=== PATIENT | male | born 1935 | race Caucasian/White ===

== ENCOUNTER 2016-12-14 | Outpatient (CLI) | payer MEDICARE, OTHER | END 2016-12-14 19:52 | disposition critical access hospital (66) | CPT/HCPCS: A0425; A0427 ==

== ENCOUNTER 2016-12-14 20:13 | Inpatient (IN) | payer MEDICARE, OTHER ==
[2016-12-14] MEDS ORDERED: SODIUM CHLORIDE 0.9% 1,000 ML IV ONE ×2 (20:20→21:43)
[2016-12-14] MEDS ORDERED: LORazepam 2 MG/ML SYRINGE IVP STA ×2 (20:21→22:24)
[2016-12-14] MEDS ORDERED: LORazepam 2 MG/ML SYRINGE ONE ×2 (20:46→22:25)
[2016-12-14] MEDS ORDERED: INSULIN REGULAR HUMAN 100 UNIT/1 ML 10 ML MDV ONE (20:51)
[2016-12-14] MEDS ORDERED: INSULIN REGULAR HUMAN 100 UNIT/1 ML 10 ML MDV IVP STA (20:55)
[2016-12-14] MEDS ORDERED: INSULIN REGULAR HUMAN 100 UNIT in SODIUM CHLORIDE 0.9% 100ML 99 ML IV STA (21:44)
[2016-12-14] MEDS ORDERED: ONDANSETRON ODT 4 MG TABLET TL PRN (22:09)
[2016-12-14] MEDS ORDERED: HYDROmorphone 1 MG/ML SYRINGE IVP PRN (22:09)
[2016-12-14] MEDS ORDERED: ONDANSETRON 4 MG/2 ML VIAL IVP PRN (22:09)
[2016-12-14] MEDS ORDERED: ACETAMINOPHEN 325 MG TABLET PO PRN (22:09)
[2016-12-14] MEDS ORDERED: SODIUM CHLORIDE FLUSH 0.9% 10 ML SYRINGE IVP PRN (22:09)
[2016-12-14] MEDS ORDERED: SODIUM CHLORIDE 0.9% 1,000 ML IV SCH (23:00)
[2016-12-15] MEDS: INSULIN REGULAR HUMAN 100 UNIT in SODIUM CHLORIDE 0.9% 100ML 99 ML IV SCH ×2 (00:40→07:00)
[2016-12-15] MEDS ORDERED: ZINC OXIDE 20% OINT 28.35 GM TUBE TOP PRN (04:49)
[2016-12-15] MEDS ORDERED: GLUCAGON 1 MG/ML VIAL SUBQ PRN (08:20)
[2016-12-15] MEDS ORDERED: DEXTROSE GEL 37.5 GM TUBE PO PRN (08:20)
[2016-12-15] MEDS ORDERED: DEXTROSE 50% ABBOJECT 25 GM/50 ML SYRINGE IVP PRN (08:20)
[2016-12-15] MEDS ORDERED: DEXTROSE 5% 1,000 ML IV PRN (08:20)
[2016-12-15] MEDS: POTASSIUM CHLOR 10 MEQ/100 ML 100 ML IV SCH ×4 (08:55→12:58)
[2016-12-15] MEDS: PANTOPRAZOLE 40 MG VIAL IVP SCH (08:55)
[2016-12-15] MEDS: SODIUM CHLORIDE 0.9% 1,000 ML IV SCH ×2 (09:27)
[2016-12-15] MEDS: SODIUM CHLORIDE FLUSH 0.9% 10 ML SYRINGE IVP SCH ×3 (10:53→20:55)
[2016-12-15] MEDS ORDERED: DEXTROSE 5%-0.45% NACL 1,000 ML IV SCH (11:00)
[2016-12-15] MEDS: INSULIN ASPART 300 UNIT/3 ML PEN SUBQ SCH ×3 (12:01→20:55)
[2016-12-15] MEDS ORDERED: WARFARIN 5 MG TABLET PO SCH (15:00)
[2016-12-15] MEDS: LISINOPRIL 20 MG TABLET PO SCH (15:10)
[2016-12-15] MEDS: DIGOXIN 125 MCG TABLET PO SCH (15:10)
[2016-12-15] MEDS: METOPROLOL SUCCINATE 25 MG TABLET PO SCH (15:10)
[2016-12-15] MEDS: DOXAZOSIN 4 MG TABLET PO SCH (15:10)
[2016-12-15] MEDS: INSULIN GLARGINE 300 UNIT/3 ML PEN SUBQ SCH (15:18)
[2016-12-15] MEDS ORDERED: ATORVASTATIN 10 MG TABLET PO SCH (21:00)
[2016-12-16] MEDS: PANTOPRAZOLE 40 MG VIAL IVP SCH (06:35)
[2016-12-16] MEDS: SODIUM CHLORIDE FLUSH 0.9% 10 ML SYRINGE IVP SCH ×2 (06:35→14:36)
[2016-12-16] MEDS: INSULIN GLARGINE 300 UNIT/3 ML PEN SUBQ SCH (08:45)
[2016-12-16] MEDS: INSULIN ASPART 300 UNIT/3 ML PEN SUBQ SCH ×2 (08:46→11:40)
[2016-12-16] MEDS: DIGOXIN 125 MCG TABLET PO SCH (08:47)
[2016-12-16] MEDS: DOXAZOSIN 4 MG TABLET PO SCH (08:47)
[2016-12-16] MEDS: METOPROLOL SUCCINATE 25 MG TABLET PO SCH (08:47)
[2016-12-16] MEDS ORDERED: INSULIN GLARGINE 300 UNIT/3 ML PEN SUBQ SCH (09:10)
[2016-12-16] MEDS ORDERED: INSULIN ASPART 300 UNIT/3 ML PEN SUBQ SCH (12:00)
[2016-12-16] MEDS ORDERED: INSULIN ASPART 300 UNIT/3 ML PEN SUBQ ONE (12:30)
[2016-12-16] MEDS ORDERED: WARFARIN 5 MG TABLET PO SCH (14:00)
== END 2016-12-16 16:20 | disposition home or self-care (01) | DRG 637 ==
DX: E11.01 Type 2 diabetes mellitus with hyperosmolarity with coma (principal); N28.9 Disorder of kidney and ureter, unspecified; I48.91 Unspecified atrial fibrillation; J98.4 Other disorders of lung; G93.41 Metabolic encephalopathy; J96.10 Chronic respiratory failure, unspecified whether with hypoxia or hypercapnia; Z79.899 Other long term (current) drug therapy; N17.9 Acute kidney failure, unspecified; I25.10 Atherosclerotic heart disease of native coronary artery without angina pectoris; I48.2 Chronic atrial fibrillation; I70.1 Atherosclerosis of renal artery; I73.9 Peripheral vascular disease, unspecified; I65.29 Occlusion and stenosis of unspecified carotid artery; J44.9 Chronic obstructive pulmonary disease, unspecified; G47.33 Obstructive sleep apnea (adult) (pediatric); I10 Essential (primary) hypertension; E78.5 Hyperlipidemia, unspecified; N40.0 Benign prostatic hyperplasia without lower urinary tract symptoms; Z66 Do not resuscitate; I25.2 Old myocardial infarction; Z72.0 Tobacco use; Z95.5 Presence of coronary angioplasty implant and graft; Z79.01 Long term (current) use of anticoagulants; Z95.828 Presence of other vascular implants and grafts; Z99.81 Dependence on supplemental oxygen; Z91.81 History of falling; Z71.6 Tobacco abuse counseling

== ENCOUNTER 2020-01-21 12:35 | Outpatient (CLI) | payer MEDICARE, OTHER | END 2020-01-21 12:36 | disposition home or self-care (01) | LOC: RT 12:35 | PROVIDERS: ATTEND Physician Assistant Medical | DX: J44.9 Chronic obstructive pulmonary disease, unspecified (principal); F17.290 Nicotine dependence, other tobacco product, uncomplicated ==

== ENCOUNTER 2022-03-28 17:38 | Outpatient (CLI) | payer MEDICARE, OTHER | END 2022-03-28 17:39 | disposition critical access hospital (66) | LOC: EMS 17:38 | DX: R53.1 Weakness (principal); R53.83 Other fatigue; R06.09 Other forms of dyspnea; R63.0 Anorexia; R05.9 Cough, unspecified; F17.210 Nicotine dependence, cigarettes, uncomplicated | CPT/HCPCS: A0425; A0427 ==

== ENCOUNTER 2022-03-28 18:06 | Inpatient (IN) | payer MEDICARE, OTHER ==
[2022-03-28] MEDS ORDERED: methylPREDNISolone SUCCINATE 125 MG/2 ML VIAL IVP STA (18:17)
[2022-03-28] MEDS ORDERED: IPRATROPIUM/ALBUTEROL 3 ML NEB INH STA (18:17)
[2022-03-28] MEDS ORDERED: diltiaZEM INJ 5 MG/ML VIAL IVP STA ×2 (18:18→19:14)
--- NOTE | 2022-03-28 18:20 | ED Physician Documentation ---
History of Present Illness - Stated complaint Stated Complaint: SOA - History obtained from History obtained from: Patient, EMS - Additonal information Additional information: 86-year-old gentleman presents by ambulance for the evaluation of shortness of breath. He is a vague historian, says he is short of breath, just been coming and going over maybe days. Says he has a mild cough, no chest pain. Paramedics state he has been noncompliant with his medications. Patient certainly does not know his medications but he says he takes about 4 in the morning and about 5 in the evening. He usually uses oxygen at night for his COPD and when I mentioned Trelegy he unconvincingly stated that he had been using that as well. On exam I note that his right leg is swollen, he had not noted that. He says he is smoking less lately than he used to, currently only about 1-1/2 packs a day. He has a history of A. fib, coronary disease, peripheral vascular disease, COPD, hyperlipidemia, hypertension, BPH, gout, and remote cholecystectomy. Review of Systems Ten Systems: 10 systems reviewed and negative Constitutional: denies: Fever, Chills Nose: denies: Rhinorrhea / runny nose, Congestion Cardiac: denies: Chest pain / pressure, Palpitations Respiratory: reports: Dyspnea, Cough PD PAST MEDICAL HISTORY - Past Medical History Cardiovascular: Congestive heart failure, Hypertension, Coronary artery disease, Peripheral Vascular Disease, [place], Atrial fibrillation Respiratory: COPD, Sleep apnea, CPAP use Endocrine/Autoimmune: Type 2 diabetes GI: GERD, Ulcers, Hemorrhoids : Incontinence HEENT: Chronic hearing loss Psych: None Musculoskeletal: Other Derm: None - Past Surgical History Past Surgical History: Yes General: Cholecystectomy, Other Cardiovascular: Coronary stent - Present Medications Home Medications: Ambulatory Orders Medication Instructions Recorded Confirmed Colchicine [Colcrys] 0.6 mg PO DAILY 12/14/16 12/15/16 Digoxin [Digox] 125 mcg PO DAILY 12/14/16 12/15/16 Doxazosin [Cardura] 4 mg PO DAILY 12/14/16 12/15/16 Esomeprazole Magnesium [Nexium] 20 mg PO DAILY 12/14/16 12/15/16 Furosemide 40 mg PO SUMOWETHSA 12/14/16 12/15/16 Metoprolol Succinate [Toprol Xl] 25 mg PO DAILY 12/14/16 12/15/16 Potassium Chloride [Klor-Con M20] 20 meq PO DAILY 12/14/16 12/15/16 Simvastatin 40 mg PO DAILY 12/14/16 12/15/16 Warfarin Sodium 5 mg PO MOTUWEFRSA 12/14/16 12/15/16 allopurinoL [Allopurinol] 300 mg PO DAILY 12/14/16 12/15/16 lisinopriL [Zestril] 20 mg PO DAILY 12/14/16 12/15/16 Furosemide [Lasix] 80 mg PO TUTH 12/15/16 12/15/16 Warfarin Sodium 7.5 mg PO SUTH 12/15/16 12/15/16 Blood Sugar Diagnostic [Glucometer 1 each [facility] #120 strip 12/16/16 Strips] Blood-Glucose Meter [Glucometer] 1 each [facility] #1 kit 12/16/16 Insulin Aspart [NovoLOG] 5 unit SUBQ TIDWM #2 pen 12/16/16 Insulin Glargine [Lantus Solostar] 25 unit SUBQ QDBREAKFAST #2 pen 12/16/16 [place], Disposable [Easy Touch 1 each [facility] #120 dis.needle 12/16/16 Hypodermic Needle] - Allergies Allergies/Adverse Reactions: Allergies Allergy/AdvReac Type Severity Reaction Status Date / Time ibuprofen Allergy Hives Verified 03/28/22 18:20 - Social History Does the pt smoke?: Yes Smoking Status: Current every day smoker Does the pt drink ETOH?: No Does the pt have substance abuse?: No - Immunizations Immunizations: TDAP >10years/unknown PD ED PE NORMAL - Vitals Vital signs reviewed: Yes - General General: Alert and oriented X 3, Other (Rapid pursed lip breathing, speaking in full sentences albeit barely. Smells of tobacco.) - HEENT HEENT: PERRL, EOMI - Neck Neck: Supple, no meningeal sign, No bony TTP - Cardiac Cardiac: Other (Rapid and irregular without murmur) - Respiratory Respiratory: Other (Rapid breathing, diminished throughout) - Abdomen Abdomen: Normal bowel sounds, Soft, Non tender - Back Back: No CVA TTP, No spinal TTP - Derm Derm: Normal color, Warm and dry - Extremities Extremities: Other (Significant asymmetric edema of the right leg without tenderness) - Neuro Neuro: Alert and oriented X 3, Normal speech Results - Vitals Vitals: Vital Signs - 24 hr 03/28/22 03/28/22 03/28/22 18:11 18:20 19:12 Temperature 37.3 C Heart Rate 119 H 111 H 107 H Respiratory 28 H 27 H 28 H Rate Blood Pressure 151/105 H 160/104 H 160/104 H O2 Saturation 93 93 92 03/28/22 19:30 Temperature Heart Rate 106 H Respiratory 24 Rate Blood Pressure O2 Saturation Oxygen O2 Source Nasal cannula Oxygen Flow Rate 2 - EKG (time done) 1910 Rate: Rate (enter#) (110) Rhythm: Atrial fibrillation [place]: Normal Intervals: Prolonged QT Ischemia: Non specific changes - Labs Labs: Laboratory Tests 03/28/22 03/28/22 03/28/22 18:26 18:26 18:26 WBC 7.4 RBC 4.56 L Hgb 13.9 L Hct 42.6 MCV 93.4 MCH 30.5 MCHC 32.6 RDW 13.8 Plt Count 238 MPV 10.7 Neut # (Auto) 6.2 Lymph # (Auto) 0.5 L [place] # (Auto) 0.6 Eos # (Auto) 0.0 Baso # (Auto) 0.0 Absolute Nucleated RBC 0.00 Nucleated RBC % 0.0 VBG pH VBG pCO2 VBG pO2 VBG HCO3 VBG Total CO2 VBG O2 Saturation VBG Base Excess Sodium 140 Potassium 3.2 L Chloride 97 L Carbon Dioxide 31 Anion Gap 12.0 BUN 17 Creatinine 1.6 H Estimated GFR (MDRD) 41 L Glucose 117 H Lactic Acid Calcium 8.6 Phosphorus 2.9 Magnesium 1.4 L Total Bilirubin 1.4 H AST 22 ALT 20 Alkaline Phosphatase 178 H Troponin I High Sens 47.7 H* B-Natriuretic Peptide Total Protein 6.9 Albumin 2.7 L Globulin 4.2 Albumin/Globulin Ratio 0.6 L Nasal Adenovirus (PCR) Nasal B. parapertussis DNA (PCR) Nasal Coronavir 229E PCR Nasal Coronavir HKU1 PCR Nasal Coronavir NL63 PCR Nasal Coronavir OC43 PCR Nasal Enterovir/Rhinovir PCR Nasal Influenza B PCR Nasal Influenza A PCR Nasal Parainfluen 1 PCR Nasal Parainfluen 2 PCR Nasal Parainfluen 3 PCR Nasal Parainfluen 4 PCR Nasal RSV (PCR) Nasal B.pertussis DNA PCR Nasal C.pneumoniae (PCR) Elder Human Metapneumo PCR Nasal M.pneumoniae (PCR) Nasal SARS-CoV-2 (PCR) Last Dose Date Last Dose Time Digoxin 03/28/22 03/28/22 03/28/22 18:26 18:26 18:26 WBC RBC Hgb Hct MCV MCH MCHC RDW Plt Count MPV Neut # (Auto) Lymph # (Auto) [place] # (Auto) Eos # (Auto) Baso # (Auto) Absolute Nucleated RBC Nucleated RBC % VBG pH 7.399 VBG pCO2 55.6 H VBG pO2 19.9 L VBG HCO3 33.6 H VBG Total CO2 35.3 H VBG O2 Saturation 34.0 L VBG Base Excess 7.0 H Sodium Potassium Chloride Carbon Dioxide Anion Gap BUN Creatinine Estimated GFR (MDRD) Glucose Lactic Acid 1.7 Calcium Phosphorus Magnesium Total Bilirubin AST ALT Alkaline Phosphatase Troponin I High Sens B-Natriuretic Peptide 1928 H Total Protein Albumin Globulin Albumin/Globulin Ratio Nasal Adenovirus (PCR) Nasal B. parapertussis DNA (PCR) Nasal Coronavir 229E PCR Nasal Coronavir HKU1 PCR Nasal Coronavir NL63 PCR Nasal Coronavir OC43 PCR Nasal Enterovir/Rhinovir PCR Nasal Influenza B PCR Nasal Influenza A PCR Nasal Parainfluen 1 PCR Nasal Parainfluen 2 PCR Nasal Parainfluen 3 PCR Nasal Parainfluen 4 PCR Nasal RSV (PCR) Nasal B.pertussis DNA PCR Nasal C.pneumoniae (PCR) Elder Human Metapneumo PCR Nasal M.pneumoniae (PCR) Nasal SARS-CoV-2 (PCR) Last Dose Date Last Dose Time Digoxin 03/28/22 03/28/22 18:26 18:30 WBC RBC Hgb Hct MCV MCH MCHC RDW Plt Count MPV Neut # (Auto) Lymph # (Auto) [place] # (Auto) Eos # (Auto) Baso # (Auto) Absolute Nucleated RBC Nucleated RBC % VBG pH VBG pCO2 VBG pO2 VBG HCO3 VBG Total CO2 VBG O2 Saturation VBG Base Excess Sodium Potassium Chloride Carbon Dioxide Anion Gap BUN Creatinine Estimated GFR (MDRD) Glucose Lactic Acid Calcium Phosphorus Magnesium Total Bilirubin AST ALT Alkaline Phosphatase Troponin I High Sens B-Natriuretic Peptide Total Protein Albumin Globulin Albumin/Globulin Ratio Nasal Adenovirus (PCR) NOT DETECTED Nasal B. parapertussis DNA (PCR) NOT DETECTED Nasal Coronavir 229E PCR NOT DETECTED Nasal Coronavir HKU1 PCR NOT DETECTED Nasal Coronavir NL63 PCR NOT DETECTED Nasal Coronavir OC43 PCR NOT DETECTED Nasal Enterovir/Rhinovir PCR NOT DETECTED Nasal Influenza B PCR NOT DETECTED Nasal Influenza A PCR NOT DETECTED Nasal Parainfluen 1 PCR NOT DETECTED Nasal Parainfluen 2 PCR NOT DETECTED Nasal Parainfluen 3 PCR NOT DETECTED Nasal Parainfluen 4 PCR NOT DETECTED Nasal RSV (PCR) NOT DETECTED Nasal B.pertussis DNA PCR NOT DETECTED Nasal C.pneumoniae (PCR) NOT DETECTED Elder Human Metapneumo PCR NOT DETECTED Nasal M.pneumoniae (PCR) NOT DETECTED Nasal SARS-CoV-2 (PCR) DETECTED A Last Dose Date UNKNOWN Last Dose Time UNKNOWN Digoxin < 0.2 PD MEDICAL DECISION MAKING - ED course ED course: 86-year-old gentleman presents by ambulance for shortness of breath and is found to have left lower lobe pneumonia, COVID, and A. fib RVR. He was treated here with divided doses of diltiazem and breathing treatments. He also got Rocephin and azithromycin after blood cultures. I spoke with Dr. Lugo for admission at 7:49 PM. We did discuss goals of care and CODE STATUS. He states he is not ready to think about it so presume he is full code for now but he is encouraged to think about it. - Critical Care Time(min): 42 Time Includes: Direct patient care, Review records, Reassess patient, Document care, Coordinate care, Medical consult Data interpretation: Labs, Pulse ox Procedures excluded from critical care time: EKG Departure - Departure Disposition: 66 [facility] DC/Xfer Clinical Impression: CAD (coronary artery disease), Atrial fibrillation with RVR, Tobacco abuse, Left lower lobe pneumonia, COPD exacerbation, COVID-19 Condition: Serious
[2022-03-28] MEDS ORDERED: IOPAMIDOL-300 100 ML VIAL ONE (18:31)
[2022-03-28 18:32] LABS: BASOPHILS % (AUTO) 0.3 %; EOSINOPHILS % (AUTO) 0.3 %; HCT - HEMATOCRIT 42.6 % (42.0-52.0); HGB - HEMOGLOBIN 13.9 g/dL (14.0-18.0); LYMPHOCYTES # (AUTO) 0.5 10^3/uL (1.5-3.5); LYMPHOCYTES % (AUTO) 7.2 %; MEAN CORPUSCULAR HEMOGLOBIN 30.5 pg (27.0-31.0); MEAN CORPUSCULAR HGB CONC 32.6 g/dL (32.0-36.0); MEAN CORPUSCULAR VOLUME 93.4 fL (80.0-94.0); MEAN PLATELET VOLUME 10.7 fL (7.4-11.4); MONOCYTES # (AUTO) 0.6 10^3/uL (0.0-1.0); MONOCYTES % (AUTO) 8.6 %; NEUTROPHILS # (AUTO) 6.2 10^3/uL (1.5-6.6); NEUTROPHILS % (AUTO) 83.2 %; PLT - PLATELET COUNT 238 10^3/uL (130-450); RED BLOOD COUNT 4.56 10^6/uL (4.70-6.10); RED CELL DISTRIBUTION WIDTH 13.8 % (12.0-15.0); WHITE BLOOD COUNT 7.4 x10^3/uL (4.8-10.8)
[2022-03-28 18:40] LABS: VBG HCO3 33.6 mmol/L (23-28); VBG PCO2 55.6 mmHg (41-51); VBG PH 7.399 (7.31-7.41); VBG PO2 19.9 mmHg (25-47); VBG TOTAL CO2 35.3 mmol/L (24-29)
--- NOTE | 2022-03-28 18:41 | XRAY Report ---
PROCEDURE: Chest 1 View X-Ray INDICATIONS: dyspnea TECHNIQUE: One view of the chest was acquired. COMPARISON: Chest x-ray one view, 12/14/2016. FINDINGS: Surgical changes and devices: None. Lungs and pleura: Left basilar infiltrate and consolidation. Small left effusion is present. A densi ty in the right upper lobe is likely caused by costochondral calcification of the first rib. No pneum othorax. Mediastinum: Mediastinal contours appear normal. Heart size is normal. Bones and chest wall: No suspicious bony lesions. Overlying soft tissues appear unremarkable. IMPRESSION: Left lower lobe infiltrate/consolidation with small left pleural effusions suspicious for left lower lobe pneumonia. Reviewed by: Ronaldo Daley MD on 03/28/2022 5:39 PM AKDT Approved by: Ronaldo Daley MD on 03/28/2022 5:39 PM AKDT Station ID: [id number]
[2022-03-28 18:49] LABS: ALBUMIN 2.7 g/dL (3.2-5.5); ALBUMIN/GLOBULIN RATIO 0.6 (1.0-2.2); BILIRUBIN,TOTAL 1.4 mg/dL (0.2-1.0); CALCIUM 8.6 mg/dL (8.5-10.3); CREATININE 1.6 mg/dL (0.6-1.2); MAGNESIUM 1.4 mg/dL (1.7-2.8); PHOSPHORUS 2.9 mg/dL (2.5-4.6); POTASSIUM 3.2 mmol/L (3.5-5.0); TOTAL PROTEIN 6.9 g/dL (6.7-8.2)
[2022-03-28] MEDS ORDERED: cefTRIAXone 1 GM in SODIUM CHLORIDE 0.9% MINIBAG 100 ML IV STA (19:08)
[2022-03-28] MEDS ORDERED: AZITHROMYCIN INJ 500 MG in SODIUM CHLORIDE 0.9% 250 ML IV STA (19:08)
[2022-03-28] MEDS ORDERED: ASPIRIN 325 MG TABLET PO STA (19:09)
[2022-03-28 19:20] LABS: DIGOXIN < 0.2 ng/mL
--- NOTE | 2022-03-28 19:24 | Ultrasound Report ---
PROCEDURE: Duplex Ext Veins Right INDICATIONS: Leg swelling TECHNIQUE: Real-time imaging, as well as color and pulse Doppler interrogation, were performed of the lower extr emity deep veins from the inguinal ligament to the popliteal fossa. COMPARISON: None. FINDINGS: The deep veins are normally compressible, and free of intraluminal thrombus. Color and pu lse Doppler demonstrate normal phasic intraluminal flow. There is normal augmentation response to di stal compression maneuver. IMPRESSION: No sonographic evidence of DVT. Reviewed by: Ramiro Gruber MD on 03/28/2022 7:23 PM PDT Approved by: Ramiro Gruber MD on 03/28/2022 7:23 PM PDT Station ID: [id number]
[2022-03-28] MEDS ORDERED: cefTRIAXone 1 GM VIAL ONE (19:30)
[2022-03-28 19:38] LABS: CORONAVIRUS 229E-RESP PCR NOT DETECTED; CORONAVIRUS HKU1-RESP PCR NOT DETECTED; CORONAVIRUS NL63-RESP PCR NOT DETECTED; CORONAVIRUS OC43-RESP PCR NOT DETECTED
[2022-03-28 19:41] LABS: B. PARAPERTUSSIS- RESP PCR PAN NOT DETECTED; B. PERTUSSIS- RESP PCR PANEL NOT DETECTED; C. PNEUMONIAE- RESP PCR PANEL NOT DETECTED; HUMAN METAPNEUMOVIRUS NOT DETECTED; INFLUENZA A- RESP PCR PANEL NOT DETECTED; INFLUENZA B - RESP PCR PANEL NOT DETECTED; M. PNEUMONIAE- RESP PCR PANEL NOT DETECTED; PARAINFLUENZA VIRUS 1 NOT DETECTED; PARAINFLUENZA VIRUS 2 NOT DETECTED; PARAINFLUENZA VIRUS 3 NOT DETECTED; PARAINFLUENZA VIRUS 4 NOT DETECTED; RHINOVIRUS/ENTEROVIRUS NOT DETECTED; RSV- RESP PCR PANEL NOT DETECTED; SARS-CoV-2 -RESP PCR PANEL DETECTED
[2022-03-28] MEDS ORDERED: ONDANSETRON 4 MG/2 ML VIAL IVP PRN (20:17)
[2022-03-28] MEDS ORDERED: ACETAMINOPHEN 325 MG TABLET PO PRN (20:17)
[2022-03-28] MEDS ORDERED: LEVALBUTEROL 1.25 MG/3 ML NEB INH PRN (20:29)
[2022-03-28] MEDS ORDERED: WARFARIN 5 MG TABLET PO SCH (21:00)
[2022-03-28] MEDS ORDERED: FUROSEMIDE 40 MG TABLET PO SCH (21:00)
[2022-03-28 21:07] LABS: INR 1.2 (0.8-1.2); PT - PROTHROMBIN TIME 13.8 secs (9.9-12.6)
[2022-03-28] MEDS ORDERED: IOPAMIDOL-300 100 ML VIAL IVP ONE (21:41)
[2022-03-28] MEDS: diltiaZEM INJ 125 MG in DEXTROSE 5% 100 ML IV SCH (21:42)
[2022-03-28] MEDS: FAMOTIDINE 20 MG TABLET PO SCH (21:53)
[2022-03-28] MEDS: METOPROLOL SUCCINATE 25 MG TABLET PO SCH (21:53)
[2022-03-28] MEDS: SODIUM CHLORIDE FLUSH 0.9% 10 ML SYRINGE IVP PRN (21:54)
[2022-03-28] MEDS: INSULIN ASPART 300 UNIT/3 ML PEN SUBQ SCH (22:15)
--- NOTE | 2022-03-28 22:20 | HISTORY & PHYSICAL EXAMINATION ---
Chief Complaint - Chief Complaint Chief Complaint: SOB History of Present Illness - Admitted From Admitted From:: ED - History Obtained From History obtained from: Info from EMS to ED provider, chart review, the patient is poor historian - History of Present Illness HPI Comment/Other: This is an 86-year-old white male with a history of 2 pack/day smoking since the age of 16, COPD on home oxygen, sleep apnea on a CPAP machine (possibly a trilogy machine), CAD with MN and coronary stenting in 2011, chronic atrial fib on Coumadin, PVD with renal artery stent in the right done 2008 and bilateral iliac stents, and 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 He was diagnosed with d iabetes mellitus about 5 years ago and was hospitalized here foraltered mental status caused by HONK with glucose greater than 1000 in November 2016. He also has prostate disease, gout, hypertension, hyperlipidemia and status post cholecystectomy. An ambulance was called due to shortness of breath and the patient gave a vague history in the ED that he has been short of breath for days and that "the girls made him come in to the ER". He described a cough with minimal sputum production, denies a fever. In the ED he was found to be in A. fib with RVR with rates in the 140s. He received diltiazem IV twice and heart rate improved to 105-110. His exam showed left basilar rales and chest x-ray showed a left lower lobe pneumonia. He is COVID-positive. His BNP is 1900 with first troponin is 47. Exam also showed right leg swelling and he underwent a Doppler of that leg that showed no DVT. A CTA of the chest has been done but results are still pending. The ED provider reached out to have the patient admitted to the Hospitalist team for managing his A. fib with RVR, community-acquired pneumonia, COPD, posdsibly CHF and a COVID-pneumonia. He has a POLST signed in 2012 that indicates he wants DNR, DNI and selective medical treatment, preferably no ICU and preferably no transfers. History - Past Medical History Cardiovascular: reports: Congestive heart failure, Hypertension, Coronary artery disease, Peripheral Vascular Disease, MN, Atrial fibrillation Respiratory: reports: COPD, Sleep apnea, CPAP use Endocrine/Autoimmune: reports: Type 2 diabetes GI: reports: GERD, Ulcers, Hemorrhoids : reports: Incontinence HEENT: reports: Chronic hearing loss Psych: reports: None Musculoskeletal: reports: Other Derm: reports: None MRSA Hx?: Yes - Past Surgical History General: reports: Cholecystectomy, Other Cardiovascular: reports: Coronary stent - Family & Social History Family History: Father: ( at 50 of stomach cancer, dad at 48 of a car accident, 1 brother unknown status), Sister: Alive and Well (2 sisters have diabetes) Living arrangement: At home Living Situation: With spouse/s.o. - Substance History Dependence: Experiences withdrawal or developed tolerances: Tobacco Tobacco Details: Cigarettes - POLST Patient has POLST: Yes POLST Status: DNR Meds/Allgy - Home Medications Home Medications: Ambulatory Orders Medication Instructions Recorded Confirmed Colchicine [Colcrys] 0.6 mg PO DAILY 12/14/16 12/15/16 Digoxin [Digox] 125 mcg PO DAILY 12/14/16 12/15/16 Doxazosin [Cardura] 4 mg PO DAILY 12/14/16 12/15/16 Esomeprazole Magnesium [Nexium] 20 mg PO DAILY 12/14/16 12/15/16 Furosemide 40 mg PO SUMOWETHSA 12/14/16 12/15/16 Metoprolol Succinate [Toprol Xl] 25 mg PO DAILY 12/14/16 12/15/16 Potassium Chloride [Klor-Con M20] 20 meq PO DAILY 12/14/16 12/15/16 Simvastatin 40 mg PO DAILY 12/14/16 12/15/16 Warfarin Sodium 5 mg PO MOTUWEFRSA 12/14/16 12/15/16 allopurinoL [Allopurinol] 300 mg PO DAILY 12/14/16 12/15/16 lisinopriL [Zestril] 20 mg PO DAILY 12/14/16 12/15/16 Furosemide [Lasix] 80 mg PO TUTH 12/15/16 12/15/16 Warfarin Sodium 7.5 mg PO SUTH 12/15/16 12/15/16 Blood Sugar Diagnostic [Glucometer 1 each [facility] #120 strip 12/16/16 Strips] Blood-Glucose Meter [Glucometer] 1 each [facility] #1 kit 12/16/16 Insulin Aspart [NovoLOG] 5 unit SUBQ TIDWM #2 pen 12/16/16 Insulin Glargine [Lantus Solostar] 25 unit SUBQ QDBREAKFAST #2 pen 12/16/16 [place], Disposable [Easy Touch 1 each [facility] #120 dis.needle 12/16/16 Hypodermic Needle] - Allergies Allergies/Adverse Reactions: Allergies Allergy/AdvReac Type Severity Reaction Status Date / Time ibuprofen Allergy Hives Verified 03/28/22 18:20 Review of Systems - Respiratory Respiratory: reports: Cough, Sputum production, SOB at rest, SOB with exertion - All Other Systems All Other Systems: reports: Reviewed and negative (He is a poor historian and gives very few details about any symptoms.) Exam - Vital Signs Reviewed Vital Signs: Yes Vital Signs: Vital Signs x48h Temp Pulse Resp BP Pulse Ox 03/28/22 21:42 149/91 H 03/28/22 19:30 106 H 24 03/28/22 19:12 107 H 28 H 160/104 H 92 03/28/22 18:20 111 H 27 H 160/104 H 93 03/28/22 18:11 37.3 C 119 H 28 H 151/105 H 93 - Physical Exam General Appearance: positive: Alert (exam done remotely), Mild distress (wearing O2 per n.c.) Eyes Bilateral: positive: Normal inspection ENT: positive: No signs of dehydration Neck: positive: Nml inspection Respiratory: positive: Other (prolonged exp phase) Cardiovascular: positive: Irregularly irregular Abdomen: positive: No distention Skin: positive: Warm, Dry Extremities: positive: Other (R leg swelling) Neurologic/Psychiatric: positive: Other (oriented to self and location, poor memory) Conclusion/Plan - Problem List (1) Atrial fibrillation with RVR Conclusion/Plan: The heart rate is likely elevated due to his infection (pneumonia and COVID infection). Will admit patient to the ICU to start an IV diltiazem drip for rate control. Will cycle troponins to rule out an MN causing this RVR. Check a.m. TSH to rule out hyperthyroidism as a cause for the RVR Will continue with his daily B-clare and his Coumadin. Follow INR daily. (2) CAP (community acquired pneumonia) Conclusion/Plan: Will continue with supplemental oxygen as needed keeping saturations greater than 80%. Will treat empirically with IV ceftriaxone and oral Zithromax (to decrease fluids). Start Florastor. Blood cultures have already been drawn before starting antibiotics, rate the results. Obtain a sputum culture if he makes it. Will start Mucinex for pulmonary toilet (3) COVID-19 Conclusion/Plan: Will order respiratory and droplet isolation. Will start Decadron iv or po daily. Will order Remdesivir to start tomorrow by Pharmacy Provide supplemental oxygen to keep sats greater than 88% (4) COPD exacerbation Conclusion/Plan: Will order IV Decadron, nebulized bronchodilators and steroids, Mucinex for pulmonary toilet and supplemental oxygen (5) Sleep apnea Conclusion/Plan: Will order his home device to be used here (6) Diabetes Conclusion/Plan: Will order a carb controlled diet, fingerstick glucose checks and sliding scale for insulin coverage. Will order a slightly lower dose than his usual long-acting insulin, 20 units instead of 25 units, since he may have decreased intake given the COVID and need for CPAP machine We will check HbA1c with morning labs Qualifiers: Diabetes mellitus type: type 2 (7) COMFORT (acute kidney injury) Conclusion/Plan: His last creatinine here was many years ago and was not 1.1, today it is 1.6. This may be due to his loop diuretic use or generalized volume depletion from his infection. Avoid nephrotoxins. Follow BMP daily. Will continue with his usual Lasix oral treatment however to prevent going into florid CHF (8) PVD (peripheral vascular disease) Conclusion/Plan: We will continue with his statin and Coumadin treatment and promote cigarette smoking cessation (9) Hypertension Conclusion/Plan: IV diltiazem drip will help with blood pressure control and will continue with his usual oral Lasix in order to prevent going into florid CHF. We will continue his Zestril, metoprolol and Cardura as well (10) Hx of coronary artery disease Conclusion/Plan: Will continue his B-clare post-MN and his statin. Will check sequential troponins to R/O MN as the cause of this SOB and the very elevated BNP. Will continue his Lasix doses because of the high BNP. Follow BNP daily. An Echo would be helpful to exclude systolic heart failure, but we currently have no Echo service whatsoever available here. (11) Tobacco abuse Conclusion/Plan: The patient told the ED provider that he has decreased smoking from 2 packs/day down to 1/2/pack/day recently. Will order a nicotine patch while here. (12) Hypokalemia Conclusion/Plan: Likely from his loop diuretic use. Will replace potassium via IV. Follow BMP daily (13) Hypomagnesemia Conclusion/Plan: Likely from his loop diuretic use. Will replace magnesium orally. Follow serum magnesium intermittently (14) BPH (benign prostatic hyperplasia) Conclusion/Plan: Will continue his home Cardura for this - Lab Results Fish Bones: 03/28/22 18:26 03/28/22 18:26 - Diagnostic Imaging Results Diagnostic Imaging Results: positive: Final report reviewed
--- NOTE | 2022-03-28 22:29 | CT Report ---
PROCEDURE: ANGIO CHEST W/WO INDICATIONS: dyspnea, pe protocol CONTRAST: IV CONTRAST: Isovue 300 ml: 100 PO CONTRAST: *NO PO CONTRAST TECHNIQUE: After the administration of intravenous contrast, 2 mm axial images were acquired from the pulmonary apices to the posterior costophrenic angles during the arterial phase. In addition, 1 mm lung kernel and 5 mm soft tissue kernel reconstructions were performed. 3-dimensional coronal oblique maximum int ensity projection (MIP) reformats, 8 mm axial MIP, and 5 mm coronal and sagittal MPR reformats were t hen performed through the thorax. For radiation dose reduction, the following was used: automated exp osure control, adjustment of mA and/or kV according to patient size. COMPARISON: Chest x-ray 03/28/2022 FINDINGS: Image quality: There is motion artifact limiting evaluation. Pulmonary arteries: Pulmonary arteries demonstrate no intraluminal filling defects to suggest centra l pulmonary embolism to the level of the segmental pulmonary arteries. Evaluation of subsegmental bra nches is limited due to suboptimal contrast opacification and motion artifact. There is enlargement o f the pulmonary arteries, with the main pulmonary artery measuring up to 3.2 cm suggestive of pulmona ry arterial hypertension. Lungs and pleura: There is a small left pleural effusion with associated compressive atelectasis. Th ere is also dependent atelectasis in the right lung. In addition, there are confluent ground glass op acities inferiorly within the right lower lobe with associated septal thickening. Small clustered nod ular opacities are also demonstrated inferiorly within the right middle lobe and left lingula. The fi ndings are suggestive of pneumonia or sequelae of aspiration. The superior segment of the right lower lobe, there is a pulmonary nodule measuring up to 0.7 cm on series 6 image 105. Mediastinum: Heart size is enlarged, without pericardial effusion. Thoracic aorta is normal in dick michelet and enhancement. There are a few mildly enlarged mediastinal lymph nodes including a right parat antoine node measuring up to 1.2 cm in short axis. Esophagus is normal in caliber, without hiatal her enrique. Bones and chest wall: No suspicious bony lesions. Ribs and thoracic spine appear intact throughout. No axillary or supraclavicular adenopathy. The visualized thyroid demonstrates no discrete nodules . Abdomen: Visualized upper abdomen demonstrates thickening of the adrenal glands bilaterally. There i s reflux of contrast into the inferior vena cava suggestive of elevated right heart filling pressures . IMPRESSION: 1. No evidence of central pulmonary embolism to the level of the segmental pulmonary arteries. Evalua tion of subsegmental branches is limited by motion artifact and suboptimal contrast opacification. 2. Confluent groundglass opacities with septal thickening in the right lower lobe. Clustered indistin ct nodular opacities also demonstrated in the inferior right middle lobe and left lingula. The findin gs are nonspecific but suggestive of pneumonia. Differential also includes sequelae of aspiration giv en the presence of dependent mucus in the trachea and right mainstem bronchus. 3. Small left pleural effusion with compressive atelectasis. 4. Mildly enlarged mediastinal lymph nodes are nonspecific but likely reactive. 5. Right lower lobe pulmonary nodule measuring up to 0.7 cm. Recommend follow-up CT in 6 months to de monstrate stability. Reviewed by: Bran Hogue MD on 03/28/2022 10:28 PM PDT Approved by: Bran Hogue MD on 03/28/2022 10:28 PM PDT Station ID: [id number]
[2022-03-28] MEDS: LEVALBUTEROL 1.25 MG/3 ML NEB INH SCH (22:40)
[2022-03-28] MEDS ORDERED: MAGNESIUM OXIDE 400 MG TABLET PO SCH (23:00)
[2022-03-28] MEDS: POTASSIUM CHLOR 10 MEQ/100 ML 10 MEQ/100 ML BAG IV SCH (23:24)
[2022-03-29] MEDS: SODIUM CHLORIDE FLUSH 0.9% 10 ML SYRINGE IVP SCH ×3 (00:30→17:20)
[2022-03-29] MEDS: POTASSIUM CHLOR 10 MEQ/100 ML 10 MEQ/100 ML BAG IV SCH ×2 (00:30→01:36)
[2022-03-29] MEDS: SODIUM CHLORIDE FLUSH 0.9% 10 ML SYRINGE IVP PRN ×2 (02:46→10:02)
[2022-03-29 05:18] LABS: CALCIUM, IONIZED 1.09 mmol/L (1.15-1.33); VBG PH 7.345 (7.31-7.41)
[2022-03-29 05:20] LABS: BASOPHILS % (AUTO) 0.1 %; HCT - HEMATOCRIT 40.5 % (42.0-52.0); HGB - HEMOGLOBIN 13.5 g/dL (14.0-18.0); LYMPHOCYTES # (AUTO) 0.3 10^3/uL (1.5-3.5); LYMPHOCYTES % (AUTO) 4.5 %; MEAN CORPUSCULAR HGB CONC 33.3 g/dL (32.0-36.0); MEAN CORPUSCULAR VOLUME 93.1 fL (80.0-94.0); MEAN PLATELET VOLUME 11.5 fL (7.4-11.4); MONOCYTES # (AUTO) 0.2 10^3/uL (0.0-1.0); MONOCYTES % (AUTO) 2.9 %; NEUTROPHILS # (AUTO) 6.7 10^3/uL (1.5-6.6); NEUTROPHILS % (AUTO) 92.1 %; PLT - PLATELET COUNT 240 10^3/uL (130-450); RED BLOOD COUNT 4.35 10^6/uL (4.70-6.10); RED CELL DISTRIBUTION WIDTH 13.6 % (12.0-15.0); WHITE BLOOD COUNT 7.3 x10^3/uL (4.8-10.8)
[2022-03-29 05:21] LABS: INR 1.2 (0.8-1.2); PT - PROTHROMBIN TIME 13.6 secs (9.9-12.6)
[2022-03-29 05:29] LABS: CALCIUM 8.6 mg/dL (8.5-10.3); CREATININE 1.4 mg/dL (0.6-1.2); MAGNESIUM 1.6 mg/dL (1.7-2.8); PHOSPHORUS 3.8 mg/dL (2.5-4.6); POTASSIUM 3.7 mmol/L (3.5-5.0)
[2022-03-29] MEDS: MAGNESIUM OXIDE 400 MG TABLET PO SCH ×2 (06:07→12:28)
[2022-03-29] MEDS: NICOTINE 21 MG PATCH TOP SCH (06:07)
[2022-03-29] MEDS: CALCIUM CARBONATE CHEW 500 MG TABLET PO SCH ×2 (06:07→11:56)
[2022-03-29] MEDS ORDERED: BUDESONIDE 0.5 MG/2 ML NEB INH SCH (07:00)
[2022-03-29] MEDS: LEVALBUTEROL 1.25 MG/3 ML NEB INH SCH (07:15)
[2022-03-29] MEDS ORDERED: POTASSIUM CHLORIDE 20 MEQ TABLET PO ONE (08:00)
[2022-03-29] MEDS ORDERED: INSULIN GLARGINE 300 UNIT/3 ML PEN SUBQ SCH (08:00)
--- NOTE | 2022-03-29 08:41 | PROVIDER PROGRESS NOTE ---
Subjective - Prog Note Date Prog Note Date: 03/29/22 - Subjective Subjective: He feels slightly improved but overall not much better compared to yesterday. Still feels short of breath. No cough. Denies any chest pain. Current Medications - Current Medications Current Medications: Active Medications Acetaminophen (Acetaminophen 325 Mg Tablet) 650 mg PO Q4HR PRN PRN Reason: Pain 1 to 4, or Fever Albuterol (Albuterol 1 Puff) 2 puffs INH RTQID [facility] Allopurinol (Allopurinol 100 Mg Tablet) 300 mg PO DAILY [facility] Last Admin: 03/29/22 09:04 Dose: 300 mg Apixaban (Apixaban 2.5 Mg Tablet) 2.5 mg PO BID [facility] Azithromycin (Azithromycin 250 Mg Tablet) 500 mg PO DAILY [facility] Stop: 03/31/22 00:01 Last Admin: 03/29/22 09:04 Dose: 500 mg Cholecalciferol (Cholecalciferol 25 Mcg Tablet) 50 mcg PO DAILY [facility] Last Admin: 03/29/22 12:24 Dose: 50 mcg Dexamethasone (Dexamethasone 4 Mg/Ml Vial) 6 mg IVP DAILY [facility] Last Admin: 03/29/22 09:16 Dose: 6 mg Digoxin (Digoxin 125 Mcg Tablet) 125 mcg PO DAILY [facility] Last Admin: 03/29/22 09:04 Dose: 125 mcg Doxazosin Mesylate (Doxazosin 4 Mg Tablet) 4 mg PO DAILY [facility] Last Admin: 03/29/22 09:04 Dose: 4 mg Furosemide (Furosemide 40 Mg Tablet) 40 mg PO DAILY [facility] Guaifenesin (Guaifenesin 600 Mg Tablet) 600 mg PO BID [facility] Last Admin: 03/29/22 09:09 Dose: 600 mg Ceftriaxone Sodium 2 gm/ (Sodium Chloride) 100 mls @ 200 mls/hr IV DAILY [facility] Last Infusion: 03/29/22 09:50 Dose: Infused Insulin Aspart (Insulin Aspart 300 Unit/3 Ml Pen) 1 - 5 unit SUBQ 0800,1200,1700,2100 [facility]; Protocol Last Admin: 03/29/22 12:26 Dose: 2 unit Levalbuterol HCl (Levalbuterol 1.25 Mg/3 Ml Neb) 1.25 mg INH Q4H PRN PRN Reason: Shortness of Air/Wheezing Magnesium Oxide (Magnesium Oxide 400 Mg Tablet) 400 mg PO ONCE [facility] Stop: 03/29/22 22:59 Last Admin: 03/28/22 23:24 Dose: 400 mg Metoprolol Succinate (Metoprolol Succinate 25 Mg Tablet) 25 mg PO BID [facility] Last Admin: 03/29/22 09:08 Dose: 25 mg Multivitamins/Minerals (Multivitamin W/Minerals Tablet) 1 tab PO DAILYWM [facility] Last Admin: 03/29/22 12:25 Dose: 1 tab Nicotine (Nicotine 21 Mg Patch) 1 patch TOP 0600 [facility] Last Admin: 03/29/22 06:07 Dose: 1 patch Ondansetron HCl (Ondansetron 4 Mg/2 Ml Vial) 4 mg IVP Q6HR PRN PRN Reason: Nausea / Vomiting Saccharomyces Boulardii (Saccharomyces Boulardii 250 Mg Capsule) 250 mg PO BIDWM [facility] Last Admin: 03/29/22 09:05 Dose: 250 mg Sodium Chloride (Sodium Chloride Flush 0.9% 10 Ml Syringe) 10 ml IVP 0100,0900,1700 [facility] Last Admin: 03/29/22 09:22 Dose: 10 ml Sodium Chloride (Sodium Chloride Flush 0.9% 10 Ml Syringe) 10 ml IVP PRN PRN PRN Reason: NEEDED PER PROVIDER ORDERS Last Admin: 03/29/22 10:02 Dose: 10 ml Doxazosin [Cardura] 4 mg PO DAILY 12/14/16 Furosemide 40 mg PO DAILY 12/14/16 Metoprolol Succinate [Toprol Xl] 25 mg PO DAILY 12/14/16 allopurinoL [Allopurinol] 300 mg PO DAILY 12/14/16 Apixaban [Eliquis] 2.5 mg PO BID 03/29/22 Objective - Vital Signs/Intake & Output Reviewed Vital Signs: Yes Vital Signs: Vital Signs Temp Pulse Resp BP Pulse Ox 03/29/22 08:00 36.5 C 80 24 142/98 H 93 03/29/22 07:00 83 28 H 152/74 H 96 03/29/22 06:00 78 27 H 136/74 H 95 03/29/22 05:00 71 21 137/67 H 96 Intake & Output: Intake & Output 03/26/22 03/27/22 03/28/22 03/29/22 23:59 23:59 23:59 23:59 Intake Total 350 475.25 Output Total 168 915 Balance 182 -439.75 - Objective General Appearance: positive: No acute distress, Alert Eyes Bilateral: positive: Conjunctivae nml ENT: positive: ENT inspection nml, Other (Nasal cannula in place.) Neck: positive: Nml inspection Respiratory: positive: No respiratory distress, Other (Diminished in bases.) Cardiovascular: positive: Irregularly irregular. negative: Tachycardia, Systolic murmur Abdomen: positive: Non-tender, No distention. negative: Tenderness Skin: positive: Warm, Dry Extremities: positive: Pedal edema (Trace nonpitting edema in right lowere extremity.) Neurologic/Psychiatric: negative: Disoriented to person, Disoriented to place - Lab Results Fish Bones: 03/30/22 04:42 03/30/22 04:42 Other Labs: Lab Results x24hrs 03/29/22 03/29/22 03/29/22 Range/Units 04:09 04:09 04:09 WBC (4.8-10.8) x10^3/uL RBC (4.70-6.10) 10^6/uL Hgb (14.0-18.0) g/dL Hct (42.0-52.0) % MCV (80.0-94.0) fL MCH (27.0-31.0) pg MCHC (32.0-36.0) g/dL RDW (12.0-15.0) % Plt Count (130-450) 10^3/uL MPV (7.4-11.4) fL Neut # (Auto) (1.5-6.6) 10^3/uL Lymph # (Auto) (1.5-3.5) 10^3/uL [place] # (Auto) (0.0-1.0) 10^3/uL Eos # (Auto) (0.0-0.7) 10^3/uL Baso # (Auto) (0.0-0.1) 10^3/uL Absolute Nucleated RBC x10^3/uL Nucleated RBC % /100WBC PT (9.9-12.6) secs INR (0.8-1.2) VBG pH 7.345 (7.31-7.41) VBG pCO2 (41-51) mmHg VBG pO2 (25-47) mmHg VBG HCO3 (23-28) mmol/L VBG Total CO2 (24-29) mmol/L VBG O2 Saturation (60-80) % VBG Base Excess (-2 - +2) mmol/L Ionized Calcium 1.09 L (1.15-1.33) mmol/L Sodium (135-145) mmol/L Potassium (3.5-5.0) mmol/L Chloride (101-111) mmol/L Carbon Dioxide (21-32) mmol/L Anion Gap (6-13) BUN (6-20) mg/dL Creatinine (0.6-1.2) mg/dL Estimated GFR (MDRD) (>89) Glucose (70-100) mg/dL Lactic Acid (0.5-2.2) mmol/L Calcium (8.5-10.3) mg/dL Phosphorus (2.5-4.6) mg/dL Magnesium (1.7-2.8) mg/dL Total Bilirubin (0.2-1.0) mg/dL AST (10-42) IU/L ALT (10-60) IU/L Alkaline Phosphatase (42-121) IU/L Troponin I High Sens (2.3-19.7) ng/L B-Natriuretic Peptide (5-100) pg/mL Total Protein (6.7-8.2) g/dL Albumin (3.2-5.5) g/dL Globulin (2.1-4.2) g/dL Albumin/Globulin Ratio (1.0-2.2) TSH 0.13 L (0.34-5.60) uIU/mL Free T4 1.76 H (0.58-1.64) ng/dL Nasal Adenovirus (PCR) Nasal B. parapertussis DNA (PCR) Nasal Coronavir 229E PCR Nasal Coronavir HKU1 PCR Nasal Coronavir NL63 PCR Nasal Coronavir OC43 PCR Nasal Enterovir/Rhinovir PCR Nasal Influenza B PCR Nasal Influenza A PCR Nasal Parainfluen 1 PCR Nasal Parainfluen 2 PCR Nasal Parainfluen 3 PCR Nasal Parainfluen 4 PCR Nasal RSV (PCR) Nasal Screen MRSA (PCR) (NEGATIVE) Nasal B.pertussis DNA PCR Nasal C.pneumoniae (PCR) Elder Human Metapneumo PCR Nasal M.pneumoniae (PCR) Nasal SARS-CoV-2 (PCR) Last Dose Date Last Dose Time Digoxin ng/mL 03/29/22 03/29/22 03/29/22 Range/Units 04:09 04:09 04:09 WBC (4.8-10.8) x10^3/uL RBC (4.70-6.10) 10^6/uL Hgb (14.0-18.0) g/dL Hct (42.0-52.0) % MCV (80.0-94.0) fL MCH (27.0-31.0) pg MCHC (32.0-36.0) g/dL RDW (12.0-15.0) % Plt Count (130-450) 10^3/uL MPV (7.4-11.4) fL Neut # (Auto) (1.5-6.6) 10^3/uL Lymph # (Auto) (1.5-3.5) 10^3/uL [place] # (Auto) (0.0-1.0) 10^3/uL Eos # (Auto) (0.0-0.7) 10^3/uL Baso # (Auto) (0.0-0.1) 10^3/uL Absolute Nucleated RBC x10^3/uL Nucleated RBC % /100WBC PT 13.6 H (9.9-12.6) secs INR 1.2 (0.8-1.2) VBG pH (7.31-7.41) VBG pCO2 (41-51) mmHg VBG pO2 (25-47) mmHg VBG HCO3 (23-28) mmol/L VBG Total CO2 (24-29) mmol/L VBG O2 Saturation (60-80) % VBG Base Excess (-2 - +2) mmol/L Ionized Calcium (1.15-1.33) mmol/L Sodium 144 (135-145) mmol/L Potassium 3.7 (3.5-5.0) mmol/L Chloride 102 (101-111) mmol/L Carbon Dioxide 30 (21-32) mmol/L Anion Gap 12.0 (6-13) BUN 17 (6-20) mg/dL Creatinine 1.4 H (0.6-1.2) mg/dL Estimated GFR (MDRD) 48 L (>89) Glucose 170 H (70-100) mg/dL Lactic Acid (0.5-2.2) mmol/L Calcium 8.6 (8.5-10.3) mg/dL Phosphorus 3.8 (2.5-4.6) mg/dL Magnesium 1.6 L (1.7-2.8) mg/dL Total Bilirubin (0.2-1.0) mg/dL AST (10-42) IU/L ALT (10-60) IU/L Alkaline Phosphatase (42-121) IU/L Troponin I High Sens (2.3-19.7) ng/L B-Natriuretic Peptide 2503 H (5-100) pg/mL Total Protein (6.7-8.2) g/dL Albumin (3.2-5.5) g/dL Globulin (2.1-4.2) g/dL Albumin/Globulin Ratio (1.0-2.2) TSH (0.34-5.60) uIU/mL Free T4 (0.58-1.64) ng/dL Nasal Adenovirus (PCR) Nasal B. parapertussis DNA (PCR) Nasal Coronavir 229E PCR Nasal Coronavir HKU1 PCR Nasal Coronavir NL63 PCR Nasal Coronavir OC43 PCR Nasal Enterovir/Rhinovir PCR Nasal Influenza B PCR Nasal Influenza A PCR Nasal Parainfluen 1 PCR Nasal Parainfluen 2 PCR Nasal Parainfluen 3 PCR Nasal Parainfluen 4 PCR Nasal RSV (PCR) Nasal Screen MRSA (PCR) (NEGATIVE) Nasal B.pertussis DNA PCR Nasal C.pneumoniae (PCR) Elder Human Metapneumo PCR Nasal M.pneumoniae (PCR) Nasal SARS-CoV-2 (PCR) Last Dose Date Last Dose Time Digoxin ng/mL 03/29/22 03/28/22 03/28/22 Range/Units 04:09 23:30 21:50 WBC 7.3 (4.8-10.8) x10^3/uL RBC 4.35 L (4.70-6.10) 10^6/uL Hgb 13.5 L (14.0-18.0) g/dL Hct 40.5 L (42.0-52.0) % MCV 93.1 (80.0-94.0) fL MCH 31.0 (27.0-31.0) pg MCHC 33.3 (32.0-36.0) g/dL RDW 13.6 (12.0-15.0) % Plt Count 240 (130-450) 10^3/uL MPV 11.5 H (7.4-11.4) fL Neut # (Auto) 6.7 H (1.5-6.6) 10^3/uL Lymph # (Auto) 0.3 L (1.5-3.5) 10^3/uL [place] # (Auto) 0.2 (0.0-1.0) 10^3/uL Eos # (Auto) 0.0 (0.0-0.7) 10^3/uL Baso # (Auto) 0.0 (0.0-0.1) 10^3/uL Absolute Nucleated RBC 0.00 x10^3/uL Nucleated RBC % 0.0 /100WBC PT (9.9-12.6) secs INR (0.8-1.2) VBG pH (7.31-7.41) VBG pCO2 (41-51) mmHg VBG pO2 (25-47) mmHg VBG HCO3 (23-28) mmol/L VBG Total CO2 (24-29) mmol/L VBG O2 Saturation (60-80) % VBG Base Excess (-2 - +2) mmol/L Ionized Calcium (1.15-1.33) mmol/L Sodium (135-145) mmol/L Potassium (3.5-5.0) mmol/L Chloride (101-111) mmol/L Carbon Dioxide (21-32) mmol/L Anion Gap (6-13) BUN (6-20) mg/dL Creatinine (0.6-1.2) mg/dL Estimated GFR (MDRD) (>89) Glucose (70-100) mg/dL Lactic Acid (0.5-2.2) mmol/L Calcium (8.5-10.3) mg/dL Phosphorus (2.5-4.6) mg/dL Magnesium (1.7-2.8) mg/dL Total Bilirubin (0.2-1.0) mg/dL AST (10-42) IU/L ALT (10-60) IU/L Alkaline Phosphatase (42-121) IU/L Troponin I High Sens 50.2 H* (2.3-19.7) ng/L B-Natriuretic Peptide (5-100) pg/mL Total Protein (6.7-8.2) g/dL Albumin (3.2-5.5) g/dL Globulin (2.1-4.2) g/dL Albumin/Globulin Ratio (1.0-2.2) TSH (0.34-5.60) uIU/mL Free T4 (0.58-1.64) ng/dL Nasal Adenovirus (PCR) Nasal B. parapertussis DNA (PCR) Nasal Coronavir 229E PCR Nasal Coronavir HKU1 PCR Nasal Coronavir NL63 PCR Nasal Coronavir OC43 PCR Nasal Enterovir/Rhinovir PCR Nasal Influenza B PCR Nasal Influenza A PCR Nasal Parainfluen 1 PCR Nasal Parainfluen 2 PCR Nasal Parainfluen 3 PCR Nasal Parainfluen 4 PCR Nasal RSV (PCR) Nasal Screen MRSA (PCR) NEGATIVE (NEGATIVE) Nasal B.pertussis DNA PCR Nasal C.pneumoniae (PCR) Elder Human Metapneumo PCR Nasal M.pneumoniae (PCR) Nasal SARS-CoV-2 (PCR) Last Dose Date Last Dose Time Digoxin ng/mL 03/28/22 03/28/22 03/28/22 Range/Units 20:56 20:56 18:30 WBC (4.8-10.8) x10^3/uL RBC (4.70-6.10) 10^6/uL Hgb (14.0-18.0) g/dL Hct (42.0-52.0) % MCV (80.0-94.0) fL MCH (27.0-31.0) pg MCHC (32.0-36.0) g/dL RDW (12.0-15.0) % Plt Count (130-450) 10^3/uL MPV (7.4-11.4) fL Neut # (Auto) (1.5-6.6) 10^3/uL Lymph # (Auto) (1.5-3.5) 10^3/uL [place] # (Auto) (0.0-1.0) 10^3/uL Eos # (Auto) (0.0-0.7) 10^3/uL Baso # (Auto) (0.0-0.1) 10^3/uL Absolute Nucleated RBC x10^3/uL Nucleated RBC % /100WBC PT 13.8 H (9.9-12.6) secs INR 1.2 (0.8-1.2) VBG pH (7.31-7.41) VBG pCO2 (41-51) mmHg VBG pO2 (25-47) mmHg VBG HCO3 (23-28) mmol/L VBG Total CO2 (24-29) mmol/L VBG O2 Saturation (60-80) % VBG Base Excess (-2 - +2) mmol/L Ionized Calcium (1.15-1.33) mmol/L Sodium (135-145) mmol/L Potassium (3.5-5.0) mmol/L Chloride (101-111) mmol/L Carbon Dioxide (21-32) mmol/L Anion Gap (6-13) BUN (6-20) mg/dL Creatinine (0.6-1.2) mg/dL Estimated GFR (MDRD) (>89) Glucose (70-100) mg/dL Lactic Acid (0.5-2.2) mmol/L Calcium (8.5-10.3) mg/dL Phosphorus (2.5-4.6) mg/dL Magnesium (1.7-2.8) mg/dL Total Bilirubin (0.2-1.0) mg/dL AST (10-42) IU/L ALT (10-60) IU/L Alkaline Phosphatase (42-121) IU/L Troponin I High Sens 55.5 H* (2.3-19.7) ng/L B-Natriuretic Peptide (5-100) pg/mL Total Protein (6.7-8.2) g/dL Albumin (3.2-5.5) g/dL Globulin (2.1-4.2) g/dL Albumin/Globulin Ratio (1.0-2.2) TSH (0.34-5.60) uIU/mL Free T4 (0.58-1.64) ng/dL Nasal Adenovirus (PCR) NOT DETECTED Nasal B. parapertussis DNA (PCR) NOT DETECTED Nasal Coronavir 229E PCR NOT DETECTED Nasal Coronavir HKU1 PCR NOT DETECTED Nasal Coronavir NL63 PCR NOT DETECTED Nasal Coronavir OC43 PCR NOT DETECTED Nasal Enterovir/Rhinovir PCR NOT DETECTED Nasal Influenza B PCR NOT DETECTED Nasal Influenza A PCR NOT DETECTED Nasal Parainfluen 1 PCR NOT DETECTED Nasal Parainfluen 2 PCR NOT DETECTED Nasal Parainfluen 3 PCR NOT DETECTED Nasal Parainfluen 4 PCR NOT DETECTED Nasal RSV (PCR) NOT DETECTED Nasal Screen MRSA (PCR) (NEGATIVE) Nasal B.pertussis DNA PCR NOT DETECTED Nasal C.pneumoniae (PCR) NOT DETECTED Elder Human Metapneumo PCR NOT DETECTED Nasal M.pneumoniae (PCR) NOT DETECTED Nasal SARS-CoV-2 (PCR) DETECTED A Last Dose Date Last Dose Time Digoxin ng/mL 03/28/22 03/28/22 03/28/22 Range/Units 18:26 18:26 18:26 WBC (4.8-10.8) x10^3/uL RBC (4.70-6.10) 10^6/uL Hgb (14.0-18.0) g/dL Hct (42.0-52.0) % MCV (80.0-94.0) fL MCH (27.0-31.0) pg MCHC (32.0-36.0) g/dL RDW (12.0-15.0) % Plt Count (130-450) 10^3/uL MPV (7.4-11.4) fL Neut # (Auto) (1.5-6.6) 10^3/uL Lymph # (Auto) (1.5-3.5) 10^3/uL [place] # (Auto) (0.0-1.0) 10^3/uL Eos # (Auto) (0.0-0.7) 10^3/uL Baso # (Auto) (0.0-0.1) 10^3/uL Absolute Nucleated RBC x10^3/uL Nucleated RBC % /100WBC PT (9.9-12.6) secs INR (0.8-1.2) VBG pH 7.399 (7.31-7.41) VBG pCO2 55.6 H (41-51) mmHg VBG pO2 19.9 L (25-47) mmHg VBG HCO3 33.6 H (23-28) mmol/L VBG Total CO2 35.3 H (24-29) mmol/L VBG O2 Saturation 34.0 L (60-80) % VBG Base Excess 7.0 H (-2 - +2) mmol/L Ionized Calcium (1.15-1.33) mmol/L Sodium (135-145) mmol/L Potassium (3.5-5.0) mmol/L Chloride (101-111) mmol/L Carbon Dioxide (21-32) mmol/L Anion Gap (6-13) BUN (6-20) mg/dL Creatinine (0.6-1.2) mg/dL Estimated GFR (MDRD) (>89) Glucose (70-100) mg/dL Lactic Acid 1.7 (0.5-2.2) mmol/L Calcium (8.5-10.3) mg/dL Phosphorus (2.5-4.6) mg/dL Magnesium (1.7-2.8) mg/dL Total Bilirubin (0.2-1.0) mg/dL AST (10-42) IU/L ALT (10-60) IU/L Alkaline Phosphatase (42-121) IU/L Troponin I High Sens (2.3-19.7) ng/L B-Natriuretic Peptide (5-100) pg/mL Total Protein (6.7-8.2) g/dL Albumin (3.2-5.5) g/dL Globulin (2.1-4.2) g/dL Albumin/Globulin Ratio (1.0-2.2) TSH (0.34-5.60) uIU/mL Free T4 (0.58-1.64) ng/dL Nasal Adenovirus (PCR) Nasal B. parapertussis DNA (PCR) Nasal Coronavir 229E PCR Nasal Coronavir HKU1 PCR Nasal Coronavir NL63 PCR Nasal Coronavir OC43 PCR Nasal Enterovir/Rhinovir PCR Nasal Influenza B PCR Nasal Influenza A PCR Nasal Parainfluen 1 PCR Nasal Parainfluen 2 PCR Nasal Parainfluen 3 PCR Nasal Parainfluen 4 PCR Nasal RSV (PCR) Nasal Screen MRSA (PCR) (NEGATIVE) Nasal B.pertussis DNA PCR Nasal C.pneumoniae (PCR) Elder Human Metapneumo PCR Nasal M.pneumoniae (PCR) Nasal SARS-CoV-2 (PCR) Last Dose Date UNKNOWN Last Dose Time UNKNOWN Digoxin < 0.2 ng/mL 03/28/22 03/28/22 03/28/22 Range/Units 18:26 18:26 18:26 WBC (4.8-10.8) x10^3/uL RBC (4.70-6.10) 10^6/uL Hgb (14.0-18.0) g/dL Hct (42.0-52.0) % MCV (80.0-94.0) fL MCH (27.0-31.0) pg MCHC (32.0-36.0) g/dL RDW (12.0-15.0) % Plt Count (130-450) 10^3/uL MPV (7.4-11.4) fL Neut # (Auto) (1.5-6.6) 10^3/uL Lymph # (Auto) (1.5-3.5) 10^3/uL [place] # (Auto) (0.0-1.0) 10^3/uL Eos # (Auto) (0.0-0.7) 10^3/uL Baso # (Auto) (0.0-0.1) 10^3/uL Absolute Nucleated RBC x10^3/uL Nucleated RBC % /100WBC PT (9.9-12.6) secs INR (0.8-1.2) VBG pH (7.31-7.41) VBG pCO2 (41-51) mmHg VBG pO2 (25-47) mmHg VBG HCO3 (23-28) mmol/L VBG Total CO2 (24-29) mmol/L VBG O2 Saturation (60-80) % VBG Base Excess (-2 - +2) mmol/L Ionized Calcium (1.15-1.33) mmol/L Sodium 140 (135-145) mmol/L Potassium 3.2 L (3.5-5.0) mmol/L Chloride 97 L (101-111) mmol/L Carbon Dioxide 31 (21-32) mmol/L Anion Gap 12.0 (6-13) BUN 17 (6-20) mg/dL Creatinine 1.6 H (0.6-1.2) mg/dL Estimated GFR (MDRD) 41 L (>89) Glucose 117 H (70-100) mg/dL Lactic Acid (0.5-2.2) mmol/L Calcium 8.6 (8.5-10.3) mg/dL Phosphorus 2.9 (2.5-4.6) mg/dL Magnesium 1.4 L (1.7-2.8) mg/dL Total Bilirubin 1.4 H (0.2-1.0) mg/dL AST 22 (10-42) IU/L ALT 20 (10-60) IU/L Alkaline Phosphatase 178 H (42-121) IU/L Troponin I High Sens 47.7 H* (2.3-19.7) ng/L B-Natriuretic Peptide 1928 H (5-100) pg/mL Total Protein 6.9 (6.7-8.2) g/dL Albumin 2.7 L (3.2-5.5) g/dL Globulin 4.2 (2.1-4.2) g/dL Albumin/Globulin Ratio 0.6 L (1.0-2.2) TSH (0.34-5.60) uIU/mL Free T4 (0.58-1.64) ng/dL Nasal Adenovirus (PCR) Nasal B. parapertussis DNA (PCR) Nasal Coronavir 229E PCR Nasal Coronavir HKU1 PCR Nasal Coronavir NL63 PCR Nasal Coronavir OC43 PCR Nasal Enterovir/Rhinovir PCR Nasal Influenza B PCR Nasal Influenza A PCR Nasal Parainfluen 1 PCR Nasal Parainfluen 2 PCR Nasal Parainfluen 3 PCR Nasal Parainfluen 4 PCR Nasal RSV (PCR) Nasal Screen MRSA (PCR) (NEGATIVE) Nasal B.pertussis DNA PCR Nasal C.pneumoniae (PCR) Elder Human Metapneumo PCR Nasal M.pneumoniae (PCR) Nasal SARS-CoV-2 (PCR) Last Dose Date Last Dose Time Digoxin ng/mL 03/28/22 Range/Units 18:26 WBC 7.4 (4.8-10.8) x10^3/uL RBC 4.56 L (4.70-6.10) 10^6/uL Hgb 13.9 L (14.0-18.0) g/dL Hct 42.6 (42.0-52.0) % MCV 93.4 (80.0-94.0) fL MCH 30.5 (27.0-31.0) pg MCHC 32.6 (32.0-36.0) g/dL RDW 13.8 (12.0-15.0) % Plt Count 238 (130-450) 10^3/uL MPV 10.7 (7.4-11.4) fL Neut # (Auto) 6.2 (1.5-6.6) 10^3/uL Lymph # (Auto) 0.5 L (1.5-3.5) 10^3/uL [place] # (Auto) 0.6 (0.0-1.0) 10^3/uL Eos # (Auto) 0.0 (0.0-0.7) 10^3/uL Baso # (Auto) 0.0 (0.0-0.1) 10^3/uL Absolute Nucleated RBC 0.00 x10^3/uL Nucleated RBC % 0.0 /100WBC PT (9.9-12.6) secs INR (0.8-1.2) VBG pH (7.31-7.41) VBG pCO2 (41-51) mmHg VBG pO2 (25-47) mmHg VBG HCO3 (23-28) mmol/L VBG Total CO2 (24-29) mmol/L VBG O2 Saturation (60-80) % VBG Base Excess (-2 - +2) mmol/L Ionized Calcium (1.15-1.33) mmol/L Sodium (135-145) mmol/L Potassium (3.5-5.0) mmol/L Chloride (101-111) mmol/L Carbon Dioxide (21-32) mmol/L Anion Gap (6-13) BUN (6-20) mg/dL Creatinine (0.6-1.2) mg/dL Estimated GFR (MDRD) (>89) Glucose (70-100) mg/dL Lactic Acid (0.5-2.2) mmol/L Calcium (8.5-10.3) mg/dL Phosphorus (2.5-4.6) mg/dL Magnesium (1.7-2.8) mg/dL Total Bilirubin (0.2-1.0) mg/dL AST (10-42) IU/L ALT (10-60) IU/L Alkaline Phosphatase (42-121) IU/L Troponin I High Sens (2.3-19.7) ng/L B-Natriuretic Peptide (5-100) pg/mL Total Protein (6.7-8.2) g/dL Albumin (3.2-5.5) g/dL Globulin (2.1-4.2) g/dL Albumin/Globulin Ratio (1.0-2.2) TSH (0.34-5.60) uIU/mL Free T4 (0.58-1.64) ng/dL Nasal Adenovirus (PCR) Nasal B. parapertussis DNA (PCR) Nasal Coronavir 229E PCR Nasal Coronavir HKU1 PCR Nasal Coronavir NL63 PCR Nasal Coronavir OC43 PCR Nasal Enterovir/Rhinovir PCR Nasal Influenza B PCR Nasal Influenza A PCR Nasal Parainfluen 1 PCR Nasal Parainfluen 2 PCR Nasal Parainfluen 3 PCR Nasal Parainfluen 4 PCR Nasal RSV (PCR) Nasal Screen MRSA (PCR) (NEGATIVE) Nasal B.pertussis DNA PCR Nasal C.pneumoniae (PCR) Elder Human Metapneumo PCR Nasal M.pneumoniae (PCR) Nasal SARS-CoV-2 (PCR) Last Dose Date Last Dose Time Digoxin ng/mL Assessment/Plan - Problem List (1) CAP (community acquired pneumonia) Impression: Imaging suggested right lower lobe infiltrate and his presentation is consistent with pneumonia. He is also COVID-positive. He is on 2 L of oxygen but his sats in the high 90s he will look to wean this down today to a goal greater than 88% given his underlying COPD. We will keep him on Decadron given the COVID 19 infection. We will transfer him out of the ICU today and if he continues to do well we can consider discharge in 1 to 2 days. We will continue ceftriaxone and azithromycin. (2) COVID-19 Impression: He is noted to be COVID-positive and is not vaccinated. His chest x-ray suggests right lower lobe infiltrate. He is on ceftriaxone and azithromycin and also Decadron given his hypoxia. Today is day 2 of both of these treatments. Continue contact precautions. (3) Atrial fibrillation with RVR Impression: This is now resolved. He is rate controlled on metoprolol and diltiazem drip has been discontinued. We will continue him on his home Eliquis. We will transfer him out of the ICU given he is no longer requiring a diltiazem drip. We will discontinue digoxin given he is not actually taking it at home. If he cannot control his heart with metoprolol then we can consider adding digoxin. (4) COMFORT (acute kidney injury) Impression: We suspect he may have mild acute kidney injury given his creatinine today is 1.4 and was 1.6 on admission. Labs from 5 years ago revealed a baseline of 1.1 but it is unclear if this has changed since then. We will continue his oral Lasix. We will continue to monitor his renal function and urine output. (5) COPD (chronic obstructive pulmonary disease) Impression: He does have COPD and reports he is on oxygen at night but not during the day. He does not know how much. It also appears he is not on any inhalers. Kiran, does not appear to be in exacerbation at this time. We will continue with herbert eduled albuterol 4 times daily. Goal oxygen saturation greater than 88%. He will need an exercise desaturation test prior to discharge. (6) Suspected CHF (congestive heart failure) Impression: Suspect he has heart failure although I am not sure this is actually contributing to his hypoxia. His BNP is increased today but he does not appear to be overtly edematous except in the right lower extremity. There was not really suggestion of pulmonary edema on imaging. We are continuing his home Lasix. We will look to see if the post closing specialist can perform an echocardiogram this evening given she is a board-certified court recorder to assess his LV function. We will continue his oral diuretics but if his dyspnea gets worse then we will consider IV diuretics. Continue with daily weights. Daily BNP. (7) Edema of right lower extremity Impression: He is unable to clarify if this is a chronic problem or not. Duplex negative for DVT. Doubt this is due to heart failure given the asymmetric edema. We will continue to monitor. (8) Hx of coronary artery disease Impression: Stable. His troponins were only mildly elevated and this is likely due to demand ischemia secondary to the pneumonia. His EKG did not suggest ischemia. We are continuing his home Eliquis and he is now on a beta-clare. (9) Type 2 diabetes mellitus Impression: His A1c is 6.5% and his blood glucose has been relatively well controlled despite the use of Decadron. He is no longer on insulin at home she will discontinue the Lantus to prevent hypoglycemia. We will continue with sliding scale. Carb controlled diet. (10) BPH (benign prostatic hyperplasia) Impression: Continue doxazosin.
[2022-03-29] MEDS ORDERED: DIGOXIN 125 MCG TABLET PO SCH (09:00)
[2022-03-29] MEDS: INSULIN ASPART 300 UNIT/3 ML PEN SUBQ SCH ×4 (09:01→21:42)
[2022-03-29] MEDS: DOXAZOSIN 4 MG TABLET PO SCH (09:04)
[2022-03-29] MEDS: FAMOTIDINE 20 MG TABLET PO SCH (09:04)
[2022-03-29] MEDS: AZITHROMYCIN 250 MG TABLET PO SCH (09:04)
[2022-03-29] MEDS: allopurinoL 100 MG TABLET PO SCH (09:04)
[2022-03-29] MEDS: SACCHAROMYCES BOULARDII 250 MG CAPSULE PO SCH ×2 (09:05→17:18)
[2022-03-29] MEDS: METOPROLOL SUCCINATE 25 MG TABLET PO SCH ×2 (09:08→21:42)
[2022-03-29] MEDS: guaiFENesin 600 MG TABLET PO SCH ×2 (09:09→21:42)
[2022-03-29] MEDS: DEXAMETHASONE 4 MG/ML VIAL IVP SCH (09:16)
[2022-03-29] MEDS: cefTRIAXone 2 GM in SODIUM CHLORIDE 0.9% MINIBAG 100 ML IV SCH (09:20)
[2022-03-29 11:47] LABS: ESTIMATED AVERAGE GLUCOSE 140 mg/dL (70-100); HEMOGLOBIN A1c% 6.5 % (4.27-6.07)
[2022-03-29] MEDS: CHOLECALCIFEROL 25 MCG TABLET PO SCH (12:24)
[2022-03-29] MEDS: MULTIVITAMIN W/MINERALS TABLET PO SCH (12:25)
[2022-03-29] MEDS ORDERED: ALBUTEROL 1 PUFF INH SCH (13:00)
[2022-03-29] MEDS: ALBUTEROL 1 PUFF INH SCH ×2 (15:10→20:27)
--- NOTE | 2022-03-29 15:15 | PHARMACY PROGRESS NOTE ---
- Best Possible Medication History Admit Date and Time: 03/28/222016 Processed by: Pharmacy Medication History completed: Yes Patient Interview: Pt unable to participate Secondary Source(s): Insurance records Patient is not familiar with his medications. I was unable to reach patient's spouse at phone number provided in chart. Medication list updated using insurance fill information. As the person ultimately responsible for medication therapy, providers are able to order a medication from an existing home medication list in [facility] via the "Reconcile Routine" prior to Confirmation of that medication by support teacher. Such practice is discouraged except when the physician, in their clinical judgment, deems that a medical need exists for a medication without regard to previous use.
[2022-03-29] MEDS ORDERED: SACCHAROMYCES BOULARDII 250 MG CAPSULE PO SCH (17:00)
[2022-03-29] MEDS ORDERED: FUROSEMIDE 40 MG TABLET PO SCH (20:26)
[2022-03-29] MEDS: APIXABAN 2.5 MG TABLET PO SCH (21:42)
[2022-03-30] MEDS: SODIUM CHLORIDE FLUSH 0.9% 10 ML SYRINGE IVP SCH ×3 (01:17→16:40)
[2022-03-30 05:20] LABS: BASOPHILS % (AUTO) 0.1 %; HCT - HEMATOCRIT 39.2 % (42.0-52.0); HGB - HEMOGLOBIN 12.7 g/dL (14.0-18.0); LYMPHOCYTES # (AUTO) 0.5 10^3/uL (1.5-3.5); LYMPHOCYTES % (AUTO) 4.4 %; MEAN CORPUSCULAR HEMOGLOBIN 30.2 pg (27.0-31.0); MEAN CORPUSCULAR HGB CONC 32.4 g/dL (32.0-36.0); MEAN CORPUSCULAR VOLUME 93.1 fL (80.0-94.0); MEAN PLATELET VOLUME 11.1 fL (7.4-11.4); MONOCYTES # (AUTO) 0.5 10^3/uL (0.0-1.0); MONOCYTES % (AUTO) 4.8 %; NEUTROPHILS # (AUTO) 9.2 10^3/uL (1.5-6.6); NEUTROPHILS % (AUTO) 90.1 %; PLT - PLATELET COUNT 268 10^3/uL (130-450); RED BLOOD COUNT 4.21 10^6/uL (4.70-6.10); RED CELL DISTRIBUTION WIDTH 13.7 % (12.0-15.0); WHITE BLOOD COUNT 10.2 x10^3/uL (4.8-10.8)
[2022-03-30 05:24] LABS: CALCIUM, IONIZED 1.13 mmol/L (1.15-1.33); VBG PH 7.369 (7.31-7.41)
[2022-03-30 05:25] LABS: INR 1.3 (0.8-1.2); PT - PROTHROMBIN TIME 14.6 secs (9.9-12.6)
[2022-03-30 05:31] LABS: CALCIUM 8.8 mg/dL (8.5-10.3); CREATININE 1.7 mg/dL (0.6-1.2); POTASSIUM 3.6 mmol/L (3.5-5.0)
[2022-03-30] MEDS: NICOTINE 21 MG PATCH TOP SCH (05:46)
[2022-03-30] MEDS: ALBUTEROL 1 PUFF INH SCH ×3 (07:35→18:40)
[2022-03-30] MEDS: INSULIN ASPART 300 UNIT/3 ML PEN SUBQ SCH ×4 (08:18→20:42)
[2022-03-30] MEDS: DEXAMETHASONE 4 MG/ML VIAL IVP SCH (08:41)
[2022-03-30] MEDS: cefTRIAXone 2 GM in SODIUM CHLORIDE 0.9% MINIBAG 100 ML IV SCH (08:43)
[2022-03-30] MEDS: METOPROLOL SUCCINATE 25 MG TABLET PO SCH (08:44)
[2022-03-30] MEDS: APIXABAN 2.5 MG TABLET PO SCH ×2 (08:44→20:29)
[2022-03-30] MEDS: CHOLECALCIFEROL 25 MCG TABLET PO SCH (08:44)
[2022-03-30] MEDS: allopurinoL 100 MG TABLET PO SCH (08:45)
[2022-03-30] MEDS: guaiFENesin 600 MG TABLET PO SCH ×2 (08:45→20:29)
[2022-03-30] MEDS: MULTIVITAMIN W/MINERALS TABLET PO SCH (08:45)
[2022-03-30] MEDS: SACCHAROMYCES BOULARDII 250 MG CAPSULE PO SCH ×2 (08:45→16:41)
[2022-03-30] MEDS: AZITHROMYCIN 250 MG TABLET PO SCH (08:45)
[2022-03-30] MEDS: DOXAZOSIN 4 MG TABLET PO SCH (08:48)
[2022-03-30] MEDS ORDERED: FUROSEMIDE 40 MG TABLET PO SCH (09:00)
[2022-03-30] MEDS: lisinopriL 20 MG TABLET PO SCH (11:53)
--- NOTE | 2022-03-30 11:55 | PROVIDER PROGRESS NOTE ---
Subjective - Prog Note Date Prog Note Date: 03/30/22 - Subjective Subjective: He feels okay overall. Feels the same compared to his baseline. Does not feel more short of breath with activity. He was confused overnight and his confirmed he does have a little dementia. Current Medications - Current Medications Current Medications: Active Medications Acetaminophen (Acetaminophen 325 Mg Tablet) 650 mg PO Q4HR PRN PRN Reason: Pain 1 to 4, or Fever Albuterol (Albuterol 1 Puff) 2 puffs INH RTQID [facility] Last Admin: 03/30/22 07:35 Dose: 2 puffs Allopurinol (Allopurinol 100 Mg Tablet) 300 mg PO DAILY [facility] Last Admin: 03/30/22 08:45 Dose: 300 mg Apixaban (Apixaban 2.5 Mg Tablet) 2.5 mg PO BID [facility] Last Admin: 03/30/22 08:44 Dose: 2.5 mg Atorvastatin Calcium (Atorvastatin 40 Mg Tablet) 20 mg PO QPM [facility] Azithromycin (Azithromycin 250 Mg Tablet) 500 mg PO DAILY [facility] Stop: 03/31/22 00:01 Last Admin: 03/30/22 08:45 Dose: 500 mg Cholecalciferol (Cholecalciferol 25 Mcg Tablet) 50 mcg PO DAILY [facility] Last Admin: 03/30/22 08:44 Dose: 50 mcg Doxazosin Mesylate (Doxazosin 4 Mg Tablet) 4 mg PO DAILY [facility] Last Admin: 03/30/22 08:48 Dose: 4 mg Furosemide (Furosemide 40 Mg Tablet) 40 mg PO DAILY [facility] Last Admin: 03/30/22 08:45 Dose: 40 mg Guaifenesin (Guaifenesin 600 Mg Tablet) 600 mg PO BID [facility] Last Admin: 03/30/22 08:45 Dose: 600 mg Ceftriaxone Sodium 2 gm/ (Sodium Chloride) 100 mls @ 200 mls/hr IV DAILY [facility] Last Infusion: 03/30/22 09:23 Dose: Infused Insulin Aspart (Insulin Aspart 300 Unit/3 Ml Pen) 1 - 5 unit SUBQ 0800,1200,1700,2100 [facility]; Protocol Last Admin: 03/30/22 11:44 Dose: 1 unit Levalbuterol HCl (Levalbuterol 1.25 Mg/3 Ml Neb) 1.25 mg INH Q4H PRN PRN Reason: Shortness of Air/Wheezing Lisinopril (Lisinopril 20 Mg Tablet) 20 mg PO DAILY [facility] Last Admin: 03/30/22 11:53 Dose: 20 mg Metoprolol Succinate (Metoprolol Succinate 25 Mg Tablet) 25 mg PO DAILY [facility] Multivitamins/Minerals (Multivitamin W/Minerals Tablet) 1 tab PO DAILYWM [facility] Last Admin: 03/30/22 08:45 Dose: 1 tab Nicotine (Nicotine 21 Mg Patch) 1 patch TOP 0600 [facility] Last Admin: 03/30/22 05:46 Dose: 1 patch Ondansetron HCl (Ondansetron 4 Mg/2 Ml Vial) 4 mg IVP Q6HR PRN PRN Reason: Nausea / Vomiting Saccharomyces Boulardii (Saccharomyces Boulardii 250 Mg Capsule) 250 mg PO BIDWM [facility] Last Admin: 03/30/22 08:45 Dose: 250 mg Sodium Chloride (Sodium Chloride Flush 0.9% 10 Ml Syringe) 10 ml IVP 0100,0900,1700 [facility] Last Admin: 03/30/22 08:41 Dose: 10 ml Sodium Chloride (Sodium Chloride Flush 0.9% 10 Ml Syringe) 10 ml IVP PRN PRN PRN Reason: NEEDED PER PROVIDER ORDERS Last Admin: 03/29/22 10:02 Dose: 10 ml Doxazosin [Cardura] 4 mg PO DAILY 12/14/16 Furosemide 40 mg PO DAILY 12/14/16 Metoprolol Succinate [Toprol Xl] 25 mg PO DAILY 12/14/16 allopurinoL [Allopurinol] 300 mg PO DAILY 12/14/16 Apixaban [Eliquis] 2.5 mg PO BID 03/29/22 Objective - Vital Signs/Intake & Output Reviewed Vital Signs: Yes Vital Signs: Vital Signs x48h Temp Pulse Pulse Pulse Resp BP Pulse Ox 03/30/22 11:44 36.5 C 89 20 139/102 H 95 03/30/22 11:08 84 03/30/22 07:50 36.4 C L 80 22 152/80 H 99 03/30/22 07:36 70 18 03/30/22 05:00 36.4 C L 70 22 153/78 H 97 Intake & Output: Intake & Output 03/27/22 03/28/22 03/29/22 03/30/22 23:59 23:59 23:59 23:59 Intake Total 350 2645.25 650 Output Total 168 1039 Balance 182 1606.25 650 - Objective General Appearance: positive: No acute distress, Alert Eyes Bilateral: positive: Normal inspection, Conjunctivae nml ENT: positive: ENT inspection nml Neck: positive: Nml inspection Respiratory: positive: No respiratory distress, Other (Diminished.). negative: Wheezes, Rales Cardiovascular: positive: Irregularly irregular. negative: Tachycardia Abdomen: positive: Non-tender, No distention. negative: Tenderness Skin: positive: Warm, Dry Extremities: positive: Pedal edema (Trace nonpitting edema in right lower extremity.) Neurologic/Psychiatric: negative: Disoriented to person, Disoriented to place - Lab Results Fish Bones: 03/30/22 04:42 03/30/22 04:42 Other Labs: Lab Results x24hrs 03/30/22 03/30/22 03/30/22 Range/Units 04:42 04:42 04:42 WBC (4.8-10.8) x10^3/uL RBC (4.70-6.10) 10^6/uL Hgb (14.0-18.0) g/dL Hct (42.0-52.0) % MCV (80.0-94.0) fL MCH (27.0-31.0) pg MCHC (32.0-36.0) g/dL RDW (12.0-15.0) % Plt Count (130-450) 10^3/uL MPV (7.4-11.4) fL Neut # (Auto) (1.5-6.6) 10^3/uL Lymph # (Auto) (1.5-3.5) 10^3/uL Rankin # (Auto) (0.0-1.0) 10^3/uL Eos # (Auto) (0.0-0.7) 10^3/uL Baso # (Auto) (0.0-0.1) 10^3/uL Absolute Nucleated RBC x10^3/uL Nucleated RBC % /100WBC PT 14.6 H (9.9-12.6) secs INR 1.3 H (0.8-1.2) VBG pH 7.369 (7.31-7.41) Ionized Calcium 1.13 L (1.15-1.33) mmol/L Sodium (135-145) mmol/L Potassium (3.5-5.0) mmol/L Chloride (101-111) mmol/L Carbon Dioxide (21-32) mmol/L Anion Gap (6-13) BUN (6-20) mg/dL Creatinine (0.6-1.2) mg/dL Estimated GFR (MDRD) (>89) Glucose (70-100) mg/dL Calcium (8.5-10.3) mg/dL B-Natriuretic Peptide 2072 H (5-100) pg/mL 03/30/22 03/30/22 Range/Units 04:42 04:42 WBC 10.2 (4.8-10.8) x10^3/uL RBC 4.21 L (4.70-6.10) 10^6/uL Hgb 12.7 L (14.0-18.0) g/dL Hct 39.2 L (42.0-52.0) % MCV 93.1 (80.0-94.0) fL MCH 30.2 (27.0-31.0) pg MCHC 32.4 (32.0-36.0) g/dL RDW 13.7 (12.0-15.0) % Plt Count 268 (130-450) 10^3/uL MPV 11.1 (7.4-11.4) fL Neut # (Auto) 9.2 H (1.5-6.6) 10^3/uL Lymph # (Auto) 0.5 L (1.5-3.5) 10^3/uL Rankin # (Auto) 0.5 (0.0-1.0) 10^3/uL Eos # (Auto) 0.0 (0.0-0.7) 10^3/uL Baso # (Auto) 0.0 (0.0-0.1) 10^3/uL Absolute Nucleated RBC 0.00 x10^3/uL Nucleated RBC % 0.0 /100WBC PT (9.9-12.6) secs INR (0.8-1.2) VBG pH (7.31-7.41) Ionized Calcium (1.15-1.33) mmol/L Sodium 142 (135-145) mmol/L Potassium 3.6 (3.5-5.0) mmol/L Chloride 101 (101-111) mmol/L Carbon Dioxide 30 (21-32) mmol/L Anion Gap 11.0 (6-13) BUN 29 H (6-20) mg/dL Creatinine 1.7 H (0.6-1.2) mg/dL Estimated GFR (MDRD) 39 L (>89) Glucose 129 H (70-100) mg/dL Calcium 8.8 (8.5-10.3) mg/dL B-Natriuretic Peptide (5-100) pg/mL Assessment/Plan - Problem List (1) CAP (community acquired pneumonia) Impression: Imaging suggested right lower lobe infiltrate and his presentation is consistent with pneumonia. He is also COVID-positive. He is now on room air after previously being on 2 L of oxygen. Today's last day of azithromycin but we will continue ceftriaxone. If he remains on room air throughout the day then we will plan for discharge tomorrow morning on oral antibiotics. (2) COVID-19 Impression: He is COVID-positive he is not vaccinated. He is no longer hypoxic so we will discontinue the Decadron. If he is stable then we will plan for discharge home tomorrow as mentioned above. Continue contact precautions. (3) Atrial fibrillation with RVR Impression: He remains rate controlled on metoprolol. At speaking his today, he had run out of his metoprolol for the past couple of weeks which likely triggered the rapid ventricular response as well as the pneumonia. Continue metoprolol and Eliquis. (4) COMFORT (acute kidney injury) Impression: Once again, it is not clear that his acute kidney injury or chronic kidney disease. His does not believe he has a history of kidney disease but he has not had labs in many years. His creatinine has been stable at around 1.5 suspect this is likely chronic kidney disease at this point. We will resume his home lisinopril today and recheck renal function in the morning. Either way, he will need close follow-up on discharge to monitor his renal function. (5) COPD (chronic obstructive pulmonary disease) Impression: This is stable and not in exacerbation. We will continue with albuterol 4 times daily. We will discharge him on Spiriva and he can continue his home nebulizers on discharge. We did an exercise desaturation study today and he was saturating in the mid 90s on room air. (6) Suspected CHF (congestive heart failure) Impression: We suspect he likely has heart failure given elevated BNP. X-ray does not really suggest pulmonary edema. His BNP is decreased today to 1999 and he does not appear to be overtly edematous. We will continue his home dose of Lasix. Continue Toprol and lisinopril. Continue with daily weights. (7) Edema of right lower extremity Impression: Duplex negative for DVT. Doubt this is due to heart failure given the asymmetric edema. We will continue to monitor. (8) Decreased thyroid stimulating hormone (TSH) level Impression: His TSH is slightly decreased and free T4 levels are minimally elevated. T3 was within normal limits. Suspect this is likely due to his acute illness rather than true hyperthyroidism. We will recommend that he have repeat labs in 4 weeks for reassessment. (9) Cognitive impairment Impression: His confirms that he has had cognitive impairment over the past 2 months or so where he has become a little more forgetful. He has been forgetful here and has had evidence of delirium overnight when he becomes a little more agitated. We will check a vitamin B12 and folate level. Delirium precautions. We will look to discharge him home tomorrow as he would likely do better in his home environment. (10) Hx of coronary artery disease Impression: Stable. His troponins were only mildly elevated and this is likely due to demand ischemia secondary to the pneumonia. His EKG did not suggest ischemia. We are continuing his home Eliquis, metoprolol, and statin. (11) Type 2 diabetes mellitus Impression: His A1c is 6.5% and his blood glucose has been relatively well controlled despite the use of Decadron. Now that Decadron has been discontinued, his blood pressure continue to improve. We will continue sliding scale and carb controlled diet. (12) BPH (benign prostatic hyperplasia) Impression: Continue doxazosin.
[2022-03-30 12:25] LABS: FOLATE 10.09 ng/mL (5.90 - >24.8)
[2022-03-30] MEDS ORDERED: ATORVASTATIN 40 MG TABLET PO SCH (21:00)
[2022-03-31] MEDS: SODIUM CHLORIDE FLUSH 0.9% 10 ML SYRINGE IVP SCH ×2 (00:46→08:29)
[2022-03-31] MEDS ORDERED: METOPROLOL 5 MG/5 ML VIAL IVP STA (01:53)
[2022-03-31] MEDS ORDERED: METOPROLOL 5 MG/5 ML VIAL IVP ONE (02:05)
[2022-03-31 05:53] LABS: BASOPHILS % (AUTO) 0.1 %; HCT - HEMATOCRIT 37.6 % (42.0-52.0); HGB - HEMOGLOBIN 12.1 g/dL (14.0-18.0); LYMPHOCYTES # (AUTO) 0.4 10^3/uL (1.5-3.5); MEAN CORPUSCULAR HEMOGLOBIN 30.4 pg (27.0-31.0); MEAN CORPUSCULAR HGB CONC 32.2 g/dL (32.0-36.0); MEAN CORPUSCULAR VOLUME 94.5 fL (80.0-94.0); MEAN PLATELET VOLUME 11.5 fL (7.4-11.4); MONOCYTES # (AUTO) 0.5 10^3/uL (0.0-1.0); MONOCYTES % (AUTO) 5.3 %; NEUTROPHILS # (AUTO) 7.9 10^3/uL (1.5-6.6); NEUTROPHILS % (AUTO) 89.9 %; PLT - PLATELET COUNT 254 10^3/uL (130-450); RED BLOOD COUNT 3.98 10^6/uL (4.70-6.10); WHITE BLOOD COUNT 8.8 x10^3/uL (4.8-10.8)
[2022-03-31 05:59] LABS: CALCIUM 8.6 mg/dL (8.5-10.3); CREATININE 1.7 mg/dL (0.6-1.2); POTASSIUM 3.3 mmol/L (3.5-5.0)
[2022-03-31] MEDS: NICOTINE 21 MG PATCH TOP SCH (06:05)
[2022-03-31] MEDS: ALBUTEROL 1 PUFF INH SCH ×2 (07:14→11:14)
[2022-03-31] MEDS ORDERED: POTASSIUM CHLORIDE 20 MEQ TABLET PO ONE (07:29)
[2022-03-31] MEDS ORDERED: LACTATED RINGERS 500 ML IV ONE (07:29)
--- NOTE | 2022-03-31 07:52 | Discharge Plan ---
Discharge Plan Problem Reviewed?: Yes Disposition: Home Health Service Condition: Stable Prescriptions: cefUROXime axetiL [Ceftin] 500 mg PO BID #6 tablet Tiotropium [place] [Spiriva] 1 puffs INH DAILY 30 Days #30 each Metoprolol Succinate [Toprol Xl] 25 mg PO BID #60 tablet lisinopriL [Zestril] 20 mg PO DAILY #30 tablet Simvastatin [Zocor] 40 mg PO HS #30 tablet Diet: Diabetic Activity Restrictions: Activity as Tolerated Assistance Devices: Walker Instruction Topics: Simvastatin tablets, Cefuroxime tablets, Metoprolol tablets, Tiotropium inhalation powder, Pneumonia Dc Health Concerns: You were admitted to the hospital because of shortness of breath due to pneumonia. You are also found to be infected with the COVID-19 virus. Which usually with antibiotics for the pneumonia as well as steroids for 2 days given the COVID-19 infection. You have had improvement in your symptoms and you are now back to your baseline. We will be discharging you with oral antibiotics for 2 more days. You were also found to have an elevated heart rate due to atrial fibrillation. This is a chronic problem for you and likely your heart rate was elevated because you ran out of your metoprolol and because of the stress on your heart from the pneumonia. Your heart rate has since been well controlled and we have increased your metoprolol to twice a day. Plan of Treatment: Please take Ceftin 500 mg twice a day for 2 more days. Last day will be the evening of April 01. I have sent a new prescription for metoprolol. Please take it 25 mg twice a day. I have also sent a new prescription for lisinopril 20 mg once a day. I have also sent a prescription for Spiriva which is an inhaler to take once a day to help treat your underlying COPD. You may continue with your nebulizer treatments as needed. Please follow-up with your primary care physician next week to ensure you are doing well from a breathing perspective. They should check your kidney function to ensure that your numbers are stable. They should also check your thyroid numbers in 4 weeks. Care Goals: The goal is to treat underlying pneumonia and to prevent future exacerbations of your COPD. Assessment: The patient and family are agreeable to the plan. Additional Instructions or Follow Up instructions: Please follow-up with your primary care physician next week. They should check labs to ensure your kidney function is stable. They will also need to check your thyroid numbers in 4 weeks. Follow-Up Care: Home Health - PT, Home Health - OT No Smoking: If you smoke, Please STOP! Call for help. Follow-up with: Agnieszka Owens PA-C [Physician No Access] -
--- NOTE | 2022-03-31 07:55 | DISCHARGE SUMMARY ---
Discharge Summary Admit Date: 03/28/22 Discharge Date: 03/31/22 Discharging Provider: Rory Hargrove Primary Care Provider: Agnieszka Owens Code Status: Do Not Attempt Resuscitation Condition at Discharge: Stable Discharge Disposition: Home Health Service - DIAGNOSES Admission Diagnoses: Atrial fibrillation with rapid ventricular response Community-acquired pneumonia COVID-19 COPD exacerbation Sleep apnea Type 2 diabetes Acute kidney injury Peripheral vascular disease Hypertension History of coronary artery disease Tobacco abuse Hypokalemia Hypomagnesemia BPH Discharge Diagnoses with Status of Each Condition: Community-acquired pneumonia - improved. COVID-19 - improved. Atrial fibrillation with rapid ventricular response - resolved. Acute kidney injury, likely chronic kidney disease - stable. COPD - stable. Suspected CHF - stable. Edema right lower extremity - stable. Decreased TSH level - stable. Cognitive impairment - stable. History of coronary artery disease - stable. Type 2 diabetes mellitus - stable. BPH - stable. AMANDA on CPAP - stable. - HPI History of Present Illness: H&P per Dr. 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 He was diagnosed with diabetes mellitus about 5 years ago and was hospitalized here foraltered mental status caused by HONK with glucose greater than 1000 in November 2016. He also has prostate disease, gout, hypertension, hyperlipidemia and status post cholecystectomy. An ambulance was called due to shortness of breath and the patient gave a vague history in the ED that he has been short of breath for days and that "the girls made him come in to the ER". He described a cough with minimal sputum production, denies a fever. In the ED he was found to be in A. fib with RVR with rates in the 140s. He received diltiazem IV twice and heart rate improved to 105-110. His exam showed left basilar rales and chest x-ray showed a left lower lobe pneumonia. He is COVID-positive. His BNP is 1900 with first troponin is 47. Exam also showed right leg swelling and he underwent a Doppler of that leg that showed no DVT. A CTA of the chest has been done but results are still pending. The ED provider reached out to have the patient admitted to the Hospitalist team for managing his A. fib with RVR, community-acquired pneumonia, COPD, posdsibly CHF and a COVID-pneumonia. He has a POLST signed in 2012 that indicates he wants DNR, DNI and selective medical treatment, preferably no ICU and preferably no transfers. - CONSULTS | PROCEDURES Consultations: PT, OT. - HOSPITAL COURSE Hospital Course: The patient was admitted to intensive care unit due to atrial fibrillation with RVR. He was started on a diltiazem drip. He was also started on ceftriaxone azithromycin for the community-acquired pneumonia. He was started on Decadron given he was also hypoxic and was positive for COVID-19. He was then attention to oral metoprolol and it was later found out up speaking to his that he had been out of his metoprolol for a couple of weeks which in addition to the pneumonia, likely triggered the rapid ventricular response. He was weaned off of the diltiazem drip and transfer out of the ICU within 24 hours. His oxygen requirements decreased and he was down to room air within 48 hours. He was observed 1 more night and continue to do well. An exercise desaturation test revealed that he does not need any oxygen at home. He was also noted to have acute kidney injury on admission but this was later felt to likely be chronic kidney disease. We did check a TSH level given the A. fib and it was slightly decreased. Free T4 was checked which was mildly elevated but T3 was within normal limits. This was felt to be secondary to his acute illness. I discussed this with his given the patient has cognitive impairment at baseline. I recommended that he have repeat TSH in 3 to 4 weeks and to have his renal function checked next week to ensure his kidney function is stable. She expressed understanding of this. He was discharged on Ceftin to take for 2 more days to complete 5 days of therapy for the pneumonia. He was also evaluated by PT and OT and home health was recommended and so this was prescribed. - ALLERGIES Allergies/Adverse Reactions: Allergies Allergy/AdvReac Type Severity Reaction Status Date / Time ibuprofen Allergy Hives Verified 03/28/22 18:20 - MEDICATIONS Home Medications: Ambulatory Orders Medication Instructions Recorded Confirmed Doxazosin [Cardura] 4 mg PO DAILY 12/14/16 03/29/22 Furosemide 40 mg PO DAILY 12/14/16 03/29/22 allopurinoL [Allopurinol] 300 mg PO DAILY 12/14/16 03/29/22 Apixaban [Eliquis] 2.5 mg PO BID 03/29/22 03/29/22 Metoprolol Succinate [Toprol Xl] 25 mg PO BID #60 tablet 03/31/22 Simvastatin [Zocor] 40 mg PO HS #30 tablet 03/31/22 Tiotropium [place] [Spiriva] 1 puffs INH DAILY 30 Days #30 each 03/31/22 cefUROXime axetiL [Ceftin] 500 mg PO BID #6 tablet 03/31/22 lisinopriL [Zestril] 20 mg PO DAILY #30 tablet 03/31/22 - PHYSICAL EXAM AT DISCHARGE General Appearance: positive: No acute distress, Alert Eyes Bilateral: positive: Normal inspection, Conjunctivae nml ENT: positive: ENT inspection nml Neck: positive: Nml inspection Respiratory: positive: No respiratory distress, Other (Diminished in bases.). negative: Wheezes, Rales Cardiovascular: positive: Irregularly irregular. negative: Tachycardia, Systolic murmur Abdomen: positive: Non-tender, No distention. negative: Tenderness Skin: positive: Warm, Dry Extremities: positive: Pedal edema (Trace nonpitting in right lower extremity.) Neurologic/Psychiatric: positive: Other (No focal deficits.). negative: Disoriented to person, Disoriented to place Physical Exam Other/Comments: Vital Signs - 24 hr 03/30/22 03/30/22 03/31/22 18:40 20:27 00:07 Temperature 36.4 C L 36.4 C L Heart Rate 83 Heart Rate [ 92 80 Brachial] Respiratory 20 Rate Blood Pressure Blood Pressure 120/76 144/73 H [Right Brachial artery] O2 Saturation 95 95 03/31/22 03/31/22 03/31/22 01:55 01:59 02:05 Temperature Heart Rate 100 Heart Rate [ 99 Brachial] Respiratory 24 Rate Blood Pressure 133/88 H Blood Pressure 120/62 [Right Brachial artery] O2 Saturation 98 03/31/22 03/31/22 03/31/22 02:10 02:15 02:30 Temperature Heart Rate Heart Rate [ 95 92 88 Brachial] Respiratory Rate Blood Pressure Blood Pressure 118/80 122/77 134/72 H [Right Brachial artery] O2 Saturation 100 98 100 03/31/22 03/31/22 03/31/22 02:45 03:00 05:00 Temperature 36.5 C Heart Rate Heart Rate [ 82 84 72 Brachial] Respiratory 20 Rate Blood Pressure Blood Pressure 136/79 H 112/70 132/85 H [Right Brachial artery] O2 Saturation 100 100 98 03/31/22 03/31/22 03/31/22 07:19 08:06 11:15 Temperature 36.5 C 36.4 C L Heart Rate 70 78 Heart Rate [ 78 84 Brachial] Respiratory 20 20 20 Rate Blood Pressure Blood Pressure 148/64 H 146/87 H [Right Brachial artery] O2 Saturation 98 94 Oxygen O2 Source Room air Oxygen Flow Rate 2 - LABS Result Diagrams: 03/31/22 04:49 03/31/22 04:49 - DIAGNOSTIC IMAGING Diagnostic Imaging Results: Final report reviewed - FOLLOW UP Follow Up: He will need follow-up with his primary care physician in 1 to 2 weeks. He will need repeat TSH in 3 to 4 weeks as well as BMP in 1 week to ensure his renal function stable. - TIME SPENT Time Spent in Discharge (Minutes): 36
[2022-03-31] MEDS: allopurinoL 100 MG TABLET PO SCH (08:29)
[2022-03-31] MEDS: lisinopriL 20 MG TABLET PO SCH (08:29)
[2022-03-31] MEDS: MULTIVITAMIN W/MINERALS TABLET PO SCH (08:29)
[2022-03-31] MEDS: APIXABAN 2.5 MG TABLET PO SCH (08:29)
[2022-03-31] MEDS: CHOLECALCIFEROL 25 MCG TABLET PO SCH (08:29)
[2022-03-31] MEDS: guaiFENesin 600 MG TABLET PO SCH (08:29)
[2022-03-31] MEDS: DOXAZOSIN 4 MG TABLET PO SCH (08:30)
[2022-03-31] MEDS: SACCHAROMYCES BOULARDII 250 MG CAPSULE PO SCH (08:30)
[2022-03-31] MEDS: INSULIN ASPART 300 UNIT/3 ML PEN SUBQ SCH ×2 (08:36→11:50)
[2022-03-31] MEDS ORDERED: METOPROLOL SUCCINATE 25 MG TABLET PO SCH ×2 (09:00)
[2022-03-31 11:16] VITALS: BP 146/87
== END 2022-03-31 12:32 | disposition home health service (06) | DRG 177 ==
LOC: EDUNIT# → ED 18:06 → ICU 20:17 → MS2 03-29 17:51
PROVIDERS: ADMIT Internal Medicine; ATTEND Internal Medicine
PROC: 3E0333Z Introduction of Anti-inflammatory into Peripheral Vein, Percutaneous Approach (ICD-10-PCS; principal; 2022-03-29)
DX: I48.91 Unspecified atrial fibrillation (principal); U07.1 COVID-19; J12.82 Pneumonia due to coronavirus disease 2019; J18.9 Pneumonia, unspecified organism; J44.0 Chronic obstructive pulmonary disease with (acute) lower respiratory infection; J44.1 Chronic obstructive pulmonary disease with (acute) exacerbation; I48.20 Chronic atrial fibrillation, unspecified; E11.51 Type 2 diabetes mellitus with diabetic peripheral angiopathy without gangrene; N17.9 Acute kidney failure, unspecified; I13.0 Hypertensive heart and chronic kidney disease with heart failure and stage 1 through stage 4 chronic kidney disease, or unspecified chronic kidney disease; F17.210 Nicotine dependence, cigarettes, uncomplicated; I11.0 Hypertensive heart disease with heart failure; I25.10 Atherosclerotic heart disease of native coronary artery without angina pectoris; Z66 Do not resuscitate; T44.7X6A Underdosing of beta-adrenoreceptor antagonists, initial encounter; R41.89 Other symptoms and signs involving cognitive functions and awareness; G47.30 Sleep apnea, unspecified; E11.22 Type 2 diabetes mellitus with diabetic chronic kidney disease; N18.9 Chronic kidney disease, unspecified; I50.9 Heart failure, unspecified; E87.6 Hypokalemia; E83.42 Hypomagnesemia; N40.0 Benign prostatic hyperplasia without lower urinary tract symptoms; R09.02 Hypoxemia; R60.0 Localized edema; F03.90 Unspecified dementia, unspecified severity, without behavioral disturbance, psychotic disturbance, mood disturbance, and anxiety; R94.6 Abnormal results of thyroid function studies; G47.33 Obstructive sleep apnea (adult) (pediatric); M10.9 Gout, unspecified; E78.5 Hyperlipidemia, unspecified; I65.29 Occlusion and stenosis of unspecified carotid artery; K21.9 Gastro-esophageal reflux disease without esophagitis; I25.2 Old myocardial infarction; Z91.128 Patient's intentional underdosing of medication regimen for other reason; Z99.81 Dependence on supplemental oxygen; Z95.5 Presence of coronary angioplasty implant and graft; Z28.310 Unvaccinated for COVID-19; Z79.4 Long term (current) use of insulin; Z79.01 Long term (current) use of anticoagulants
CPT/HCPCS: 36415; 71045; 71275; 80048; 80053; 80162; 82330; 82607; 82746; 82803; 83036; 83605; 83735; 83880; 84100; 84439; 84443; 84480; 84484; 85025; 85610; 87040; 87150; 87633; 93005; 93971; 94640; 94664; 94761; 96365; 96375; 96376; 97161; 97165; 99285; 99291; A9270; J1815; J7120; J7626; Q9967

== ENCOUNTER 2022-04-27 11:49 | Outpatient (CLI) | payer MEDICARE, OTHER ==
--- NOTE | 2022-04-27 13:51 | XRAY Report ---
PROCEDURE: Chest 2 View X-Ray INDICATIONS: PNEUMONIA TECHNIQUE: 2 view(s) of the chest. COMPARISON: CXR earlier today, 03/28/2022. CT pulmonary angiogram 03/28/2022. FINDINGS: Surgical changes and devices: None. Lungs and pleura: Small left pleural effusion. No pneumothorax. Mild retrocardiac opacity. Mediastinum: Mediastinal contours are normal. Heart size is normal. Bones and chest wall: No suspicious bony abnormalities. Soft tissues appear unremarkable. IMPRESSION: Mild retrocardiac opacity. Small left pleural effusion. Reviewed by: Ricardo Snowden MD on 04/27/2022 1:49 PM PDT Approved by: Ricardo Snowden MD on 04/27/2022 1:49 PM PDT Station ID: [id number]
== END 2022-04-27 11:50 | disposition home or self-care (01) ==
LOC: DI 11:49
PROVIDERS: ATTEND Family Medicine
DX: J18.9 Pneumonia, unspecified organism (principal); J90 Pleural effusion, not elsewhere classified

== ENCOUNTER 2022-09-03 21:05 | Outpatient (CLI) | payer OTHER, MEDICARE | END 2022-09-03 21:06 | disposition critical access hospital (66) | LOC: EMS 21:05 | DX: R53.1 Weakness (principal); R06.02 Shortness of breath; R53.83 Other fatigue; R51.9 Headache, unspecified; R63.8 Other symptoms and signs concerning food and fluid intake | CPT/HCPCS: A0425; A0429 ==

== ENCOUNTER 2022-09-03 21:28 | Inpatient (IN) | payer MEDICARE, OTHER ==
[2022-09-03 22:06] LABS: BASOPHILS % (AUTO) 0.7 %; EOSINOPHILS # (AUTO) 0.1 10^3/uL (0.0-0.7); HGB - HEMOGLOBIN 11.5 g/dL (14.0-18.0); LYMPHOCYTES # (AUTO) 0.7 10^3/uL (1.5-3.5); LYMPHOCYTES % (AUTO) 13.2 %; MEAN CORPUSCULAR HEMOGLOBIN 30.9 pg (27.0-31.0); MEAN CORPUSCULAR HGB CONC 31.1 g/dL (32.0-36.0); MEAN CORPUSCULAR VOLUME 99.5 fL (80.0-94.0); MEAN PLATELET VOLUME 10.1 fL (7.4-11.4); MONOCYTES # (AUTO) 0.5 10^3/uL (0.0-1.0); MONOCYTES % (AUTO) 9.1 %; NEUTROPHILS # (AUTO) 4.1 10^3/uL (1.5-6.6); NEUTROPHILS % (AUTO) 74.8 %; PLT - PLATELET COUNT 159 10^3/uL (130-450); RED BLOOD COUNT 3.72 10^6/uL (4.70-6.10); RED CELL DISTRIBUTION WIDTH 15.3 % (12.0-15.0); WHITE BLOOD COUNT 5.5 x10^3/uL (4.8-10.8)
[2022-09-03] MEDS ORDERED: FUROSEMIDE 40 MG/4 ML VIAL IVP STA (22:15)
[2022-09-03 22:20] LABS: ALBUMIN 3.5 g/dL (3.2-5.5); ALBUMIN/GLOBULIN RATIO 1.1 (1.0-2.2); BILIRUBIN,TOTAL 1.8 mg/dL (0.2-1.0); CREATININE 1.8 mg/dL (0.6-1.2); POTASSIUM 3.1 mmol/L (3.5-5.0); TOTAL PROTEIN 6.6 g/dL (6.7-8.2)
--- NOTE | 2022-09-03 22:29 | XRAY Report ---
PROCEDURE: Chest 1 View X-Ray INDICATIONS: ITS.REASON: SOA TECHNIQUE: One view of the chest was acquired. COMPARISON: Prior chest plain film 11/27/[address] angiogram chest 03/28/2022 FINDINGS: Surgical changes and devices: None. Lungs and pleura: There likely are bilateral subpulmonic pleural effusions but no pneumothorax. Amarilis gs are edematous, slightly greater on the left than the right and involve diffusely.. Mediastinum: Mediastinal contours appear normal. Heart size is moderately enlarged. Bones and chest wall: No suspicious bony lesions. Overlying soft tissues appear unremarkable. IMPRESSION: Acute exacerbation of chronic CHF. Reviewed by: Vlad Maya MD on 09/03/2022 10:28 PM PDT Approved by: Vlad Maya MD on 09/03/2022 10:28 PM PDT Station ID: [id number]
[2022-09-03] MEDS ORDERED: POTASSIUM CHLORIDE 20 MEQ TABLET PO STA (23:13)
--- NOTE | 2022-09-03 23:19 | ED Physician Documentation ---
PD HPI DYSPNEA - Stated complaint Stated Complaint: SOA, WEAKNESS - Chief complaint Chief Complaint: Resp - History obtained from History obtained from: Patient, EMS - Additional information Additional information: Patient is an 86-year-old male presenting for evaluation of shortness of breath. Is unclear how long his symptoms have been going on for but patient reports at least a few days. He is supposed to be taking Lasix and reports that 10 weeks ago his doctor changed it to every other day dosing.He has been using it and reports normal urination. He does have lower extremity swelling but he is unsure if his swelling is worse than normal today. He denies chest pain. He reports nonproductive cough. He lives in a trailer with his and states that he does not ambulate much.He does take Eliquis for history of A. fib.EMS did administer a DuoNeb. They also noted he was 86% on room air. Patient reports feeling better with oxygen on. Review of Systems Constitutional: denies: Fever Nose: denies: Congestion Cardiac: denies: Chest pain / pressure Respiratory: reports: Dyspnea, Cough GI: denies: Abdominal Pain, Vomiting : denies: Dysuria Musculoskeletal: reports: Extremity swelling Neurologic: denies: Headache PD PAST MEDICAL HISTORY - Past Medical History Cardiovascular: Congestive heart failure, Hypertension, Coronary artery disease, Peripheral Vascular Disease, [place], Atrial fibrillation Respiratory: COPD, Sleep apnea, CPAP use Neuro: Dementia Endocrine/Autoimmune: Type 2 diabetes GI: GERD, Ulcers, Hemorrhoids : Incontinence HEENT: Chronic hearing loss Psych: None Musculoskeletal: Gout Derm: None - Past Surgical History Past Surgical History: Yes General: Cholecystectomy Cardiovascular: Coronary stent - Present Medications Home Medications: Ambulatory Orders Medication Instructions Recorded Confirmed Furosemide 40 mg PO DAILY 12/14/16 09/03/22 allopurinoL [Allopurinol] 300 mg PO DAILY 12/14/16 09/03/22 Apixaban [Eliquis] 2.5 mg PO BID 03/29/22 09/03/22 Metoprolol Succinate [Toprol Xl] 25 mg PO BID #60 tablet 03/31/22 09/03/22 Simvastatin [Zocor] 40 mg PO HS #30 tablet 03/31/22 09/03/22 cefUROXime axetiL [Ceftin] 500 mg PO BID #6 tablet 03/31/22 lisinopriL [Zestril] 20 mg PO DAILY #30 tablet 03/31/22 09/03/22 Albuterol 2.5 mg INH Q4H PRN 09/03/22 09/03/22 - Allergies Allergies/Adverse Reactions: Allergies Allergy/AdvReac Type Severity Reaction Status Date / Time ibuprofen Allergy Hives Verified 09/03/22 21:37 - Social History Does the pt smoke?: Yes Smoking Status: Current every day smoker Does the pt drink ETOH?: No Does the pt have substance abuse?: No - Immunizations Immunizations: TDAP >10years/unknown - POLST Patient has POLST: Yes POLST Status: DNR PD ED PE NORMAL - General General: Alert and oriented X 3, No acute distress, Other (Elderly, frail- appearing; Tachypneic) - HEENT HEENT: Atraumatic - Neck Neck: Supple, no meningeal sign - Cardiac Cardiac: Other (Tachycardic, irregularly irregular) - Respiratory Respiratory: Other (Mild tachypnea, diminished breath sounds at the bases, bottom crane operator ckles) - Abdomen Abdomen: Soft, Non tender - Derm Derm: Warm and dry - Extremities Extremities: Other (Bilateral lower extremity edema) - Neuro Neuro: Normal speech Results - Vitals Vitals: Vital Signs - 24 hr 09/03/22 09/03/22 09/03/22 21:33 21:51 23:05 Temperature 36.8 C Heart Rate 76 123 H 114 H Respiratory 29 H 22 22 Rate Blood Pressure 111/83 H 126/81 H 122/89 H O2 Saturation 93 99 99 If not protocol 3 3 : Oxygen Flow, liters/minute 09/04/22 09/04/22 09/04/22 00:00 00:05 00:10 Temperature Heart Rate 120 H 135 H 122 H Respiratory Rate Blood Pressure 134/84 H 121/97 H 109/94 H O2 Saturation If not protocol : Oxygen Flow, liters/minute 09/04/22 09/04/22 09/04/22 00:15 00:20 00:45 Temperature Heart Rate 75 94 111 H Respiratory 27 H 28 H Rate Blood Pressure 131/102 H 131/70 H 86/70 L O2 Saturation 98 99 If not protocol 3 3 : Oxygen Flow, liters/minute 09/04/22 01:00 Temperature Heart Rate 112 H Respiratory 25 H Rate Blood Pressure 110/88 H O2 Saturation 99 If not protocol 3 : Oxygen Flow, liters/minute Oxygen O2 Source Nasal cannula Oxygen Flow Rate 3 - EKG (time done) 2131 Rate: Rate (enter#) (126) Rhythm: Atrial fibrillation Intervals: LBBB Ischemia: No: ST elevation c/w ischemia - Labs Labs: Laboratory Tests 09/03/22 09/03/22 09/03/22 21:53 21:56 21:56 WBC 5.5 RBC 3.72 L Hgb 11.5 L Hct 37.0 L MCV 99.5 H MCH 30.9 MCHC 31.1 L RDW 15.3 H Plt Count 159 MPV 10.1 Neut # (Auto) 4.1 Lymph # (Auto) 0.7 L [place] # (Auto) 0.5 Eos # (Auto) 0.1 Baso # (Auto) 0.0 Absolute Nucleated RBC 0.00 Nucleated RBC % 0.0 Sodium 144 Potassium 3.1 L Chloride 103 Carbon Dioxide 31 Anion Gap 10.0 BUN 28 H Creatinine 1.8 H Estimated GFR (MDRD) 36 L Glucose 130 H Lactic Acid Calcium 9.0 Total Bilirubin 1.8 H AST 31 ALT 15 Alkaline Phosphatase 209 H Troponin I High Sens B-Natriuretic Peptide Total Protein 6.6 L Albumin 3.5 Globulin 3.1 Albumin/Globulin Ratio 1.1 Triglycerides Cholesterol LDL Cholesterol, Calc VLDL Cholesterol HDL Cholesterol LDL/HDL Ratio Cholesterol/HDL Ratio Lipase 34 SARS-CoV-2 (PCR) NOT DETECTED 09/03/22 09/03/22 09/03/22 21:56 21:56 21:56 WBC RBC Hgb Hct MCV MCH MCHC RDW Plt Count MPV Neut # (Auto) Lymph # (Auto) [place] # (Auto) Eos # (Auto) Baso # (Auto) Absolute Nucleated RBC Nucleated RBC % Sodium Potassium Chloride Carbon Dioxide Anion Gap BUN Creatinine Estimated GFR (MDRD) Glucose Lactic Acid 1.5 Calcium Total Bilirubin AST ALT Alkaline Phosphatase Troponin I High Sens 69.0 H* B-Natriuretic Peptide 3543 H Total Protein Albumin Globulin Albumin/Globulin Ratio Triglycerides Cholesterol LDL Cholesterol, Calc VLDL Cholesterol HDL Cholesterol LDL/HDL Ratio Cholesterol/HDL Ratio Lipase SARS-CoV-2 (PCR) 09/04/22 09/04/22 01:00 01:00 WBC RBC Hgb Hct MCV MCH MCHC RDW Plt Count MPV Neut # (Auto) Lymph # (Auto) [place] # (Auto) Eos # (Auto) Baso # (Auto) Absolute Nucleated RBC Nucleated RBC % Sodium Potassium Chloride Carbon Dioxide Anion Gap BUN Creatinine Estimated GFR (MDRD) Glucose Lactic Acid Calcium Total Bilirubin AST ALT Alkaline Phosphatase Troponin I High Sens 84.6 H* B-Natriuretic Peptide Total Protein Albumin Globulin Albumin/Globulin Ratio Triglycerides 48 Cholesterol 84 LDL Cholesterol, Calc 44 VLDL Cholesterol 10 HDL Cholesterol 30 L LDL/HDL Ratio 1.5 Cholesterol/HDL Ratio 2.8 Lipase SARS-CoV-2 (PCR) PD MEDICAL DECISION MAKING - ED course Complexity details: reviewed results, re-evaluated patient, d/w patient ED course: Patient with shortness of breath and leg swelling. He is mildly tachypneic. Hypoxic in the field and feels better with supplemental oxygen.Appears to be fluid overloaded. Also noted to be in A. fib with RVR which she has a history of. Heart rate improved with diltiazem.Patient was given IV Lasix without significant urine output.Discussed the case with the hospitalist who will evaluate the patient for admission.Patient denies chest pain to suggest ACS.Suspect CHF exacerbation is related to recent Decrease in frequency of Lasix use. Departure - Departure Disposition: 66 [facility] DC/Xfer Clinical Impression: Atrial fibrillation with RVR, Acute exacerbation of CHF (congestive heart failure) Condition: Serious Discharge Date/Time: 09/04/22 02:33
[2022-09-03] MEDS ORDERED: diltiaZEM INJ 5 MG/ML VIAL IVP STA (23:24)
[2022-09-04] MEDS ORDERED: ONDANSETRON 4 MG/2 ML VIAL IVP PRN (00:26)
[2022-09-04] MEDS ORDERED: TEMAZEPAM 15 MG CAPSULE PO PRN (00:26)
[2022-09-04] MEDS ORDERED: ACETAMINOPHEN 325 MG TABLET PO PRN (00:26)
[2022-09-04] MEDS ORDERED: SODIUM CHLORIDE FLUSH 0.9% 10 ML SYRINGE IVP PRN (00:26)
[2022-09-04] MEDS ORDERED: MORPHINE 2 MG/ML CARPUJECT IVP PRN (00:26)
[2022-09-04] MEDS ORDERED: HYDROcod/ACETAM 5/325 MG TABLET PO PRN (00:26)
[2022-09-04] MEDS ORDERED: metOLazone 2.5 MG TABLET PO STA (00:33)
[2022-09-04] MEDS ORDERED: ATORVASTATIN 40 MG TABLET PO STA (00:40)
[2022-09-04] MEDS ORDERED: DIGOXIN 500 MCG/2 ML AMP IVP STA (00:46)
--- NOTE | 2022-09-04 00:58 | HISTORY & PHYSICAL EXAMINATION ---
Chief Complaint - Chief Complaint Chief Complaint: SOB, weakness and worsening leg edema History of Present Illness - Admitted From Admitted From:: ER - History Obtained From Records Reviewed: yes History obtained from: Patient Exam Limitations: TElecart - History of Present Illness HPI Comment/Other: This is an 86-year-old white male with a history of 2 pack/day smoking since the age of 16, COPD on home oxygen, sleep apnea on a CPAP machine (possibly a trilogy machine), CAD with [place] and coronary stenting in 2011, chronic atrial fib on Coumadin, PVD with renal artery stent in the right done 2008 and bilateral iliac stents, and 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 He was diagnosed with diabetes mellitus about 5 years ago and was hospitalized here foraltered mental status caused by HONK with glucose greater than 1000 in November 2016. He also has prostate disease, gout, hypertension, hyperlipidemia and status post c holecystectomy. Patient comes in with complaints of worsening sob and worsening leg edema. In the ED he was found to be in A. fib with RVR with rates in the 120s. He received diltiazem IV once and heart rate improved to 105-110. He is COVID- negative His BNP is 3500 with first troponin is 69. He is in moderate distress, lives with his served in the [place] in his younger days, has 2 sons and many great grandkids, he is pleasant, expressed to be DNR Patient is SOB while talking. He also has 3+ pedal edema and has b/l crackles as well as diffuclty lying down flat, at this time his main issues are from CHF and his COPD seems to be in control. Unfortunately not CPAP/Bipap available a this time, and patient can not be transferred to higher level of care due to logistics, also his creatinine is 1.8 no chest pain and awaiting further labs, repeat troponin. History - Past Medical History Cardiovascular: reports: Congestive heart failure, Hypertension, Coronary artery disease, Peripheral Vascular Disease, [place], Atrial fibrillation Respiratory: reports: COPD, Sleep apnea, CPAP use Neuro: reports: Dementia Endocrine/Autoimmune: reports: Type 2 diabetes GI: reports: GERD, Ulcers, Hemorrhoids : reports: Incontinence HEENT: reports: Chronic hearing loss Psych: reports: None Musculoskeletal: reports: Gout Derm: reports: None MRSA Hx?: Yes - Past Surgical History General: reports: Cholecystectomy Cardiovascular: reports: Coronary stent - Family & Social History Family History: Father: ( at 50 of stomach cancer, dad at 48 of a car accident, 1 brother unknown status), Sister: Alive and Well (2 sisters have diabetes) Living Situation: With spouse/s.o. - POLST Patient has POLST: Yes POLST Status: DNR Meds/Allgy - Home Medications Home Medications: Ambulatory Orders Medication Instructions Recorded Confirmed Furosemide 40 mg PO DAILY 12/14/16 09/03/22 allopurinoL [Allopurinol] 300 mg PO DAILY 12/14/16 09/03/22 Apixaban [Eliquis] 2.5 mg PO BID 03/29/22 09/03/22 Metoprolol Succinate [Toprol Xl] 25 mg PO BID #60 tablet 03/31/22 09/03/22 Simvastatin [Zocor] 40 mg PO HS #30 tablet 03/31/22 09/03/22 cefUROXime axetiL [Ceftin] 500 mg PO BID #6 tablet 03/31/22 lisinopriL [Zestril] 20 mg PO DAILY #30 tablet 03/31/22 09/03/22 Albuterol 2.5 mg INH Q4H PRN 09/03/22 09/03/22 - Allergies Allergies/Adverse Reactions: Allergies Allergy/AdvReac Type Severity Reaction Status Date / Time ibuprofen Allergy Hives Verified 09/03/22 21:37 Review of Systems - Cardiovascular Cariovascular: reports: Irregular heart rate, Palpitations, Edema, Orthopnea - Respiratory Respiratory: reports: Orthopnea, SOB at rest, SOB with exertion - Neurological Neurological: reports: General weakness - Endocrine Endocrine: reports: Polyuria Prior Level of Functionality: Live with and states compliant with meds, recently lasix changed to QOD,. states can easily take care of his ADL Exam - Vital Signs Vital Signs: Vital Signs x48h Temp Pulse Resp BP Pulse Ox O2 Flow Rate 09/04/22 00:20 94 27 H 131/70 H 98 3 09/04/22 00:15 75 131/102 H 09/04/22 00:10 122 H 109/94 H 09/04/22 00:05 135 H 121/97 H 09/04/22 00:00 120 H 134/84 H 09/03/22 23:05 114 H 22 122/89 H 99 3 09/03/22 21:51 123 H 22 126/81 H 99 3 09/03/22 21:33 36.8 C 76 29 H 111/83 H 93 - Physical Exam General Appearance: positive: Mild distress Eyes Bilateral: positive: Normal inspection Neck: positive: Nml inspection Respiratory: positive: Rales, Rhonchi Cardiovascular: positive: Irregularly irregular, Systolic murmur Abdomen: positive: Non-tender Extremities: positive: Pedal edema Neurologic/Psychiatric: positive: Oriented x3, CN's nml (2-12) Sepsis Event Note (H) - Evaluation Current Stage of Sepsis: Ruled out Conclusion/Plan - Problem List (1) CHF (congestive heart failure) Conclusion/Plan: Daily wieght Stict in and out Coreg Lisinopril Echo lasix drip Monitor electrolytes bid Zaroxoly x one Heart failure education Recommend stress test (2) CKD (chronic kidney disease) Conclusion/Plan: Avoid nephrotoxin Last creatine few month ago 1.7 Continue to closely monitor some compent of cardiorenal (3) Leg edema Conclusion/Plan: romy stocking and diuresis on care home Eliquis last admission had doppler and DVt ruled out (4) Troponin level elevated Conclusion/Plan: Trend troponin Likely Type II [place] demand ischemia from A fib with rvr and chf in setting of cKD Continue to closely monitor (5) Atrial fibrillation with RVR Conclusion/Plan: Rate control Doigoxin Coreg In and out continue Eliquis (6) BPH (benign prostatic hyperplasia) Conclusion/Plan: Place Batista for strict In and out While in ER tried to stand up to urinate and got unsteady and severe SOB and fatigue (7) CAD (coronary artery disease) Conclusion/Plan: S/p PCI in 2011 Details not known Trend troponin and continue Eliquis outpatient stress test - Pharmacological (8) Diabetes Conclusion/Plan: Check A1c and sliding scale with coverage Qualifiers: Diabetes mellitus type: type 2 (9) Hx of coronary artery disease Conclusion/Plan: Trend troponin and as above if any chest pain please call us right away (10) Hypertension Conclusion/Plan: on lisinopril Coreg (11) Tobacco abuse Conclusion/Plan: Counseling for cessationand resources for cessation - Lab Results Fish Bones: 09/03/22 21:56 09/03/22 21:56 - Diagnostic Imaging Results Diagnostic Imaging Results: positive: Prelim report reviewed - EKG Results EKG Interpreted Independently: Yes EKG Comparison: Old EKG unavailable
[2022-09-04] MEDS ORDERED: FUROSEMIDE INJ 100mg VIAL 100 MG in SODIUM CHLORIDE 0.9% 100ML 90 ML IV SCH (01:00)
[2022-09-04 01:30] LABS: CHOL/HDL RATIO 2.8 (<5.0); CHOLESTEROL 84 mg/dL; HDL CHOLESTEROL 30 mg/dL; LDL CHOLESTEROL,CALCULATED 44 mg/dL; LDL/HDL RATIO 1.5 (<3.6); TRIGLYCERIDES 48 mg/dL; VLDL CHOLESTEROL 10 mg/dL
[2022-09-04] MEDS: lisinopriL 5 MG TABLET PO SCH ×2 (02:19→20:26)
[2022-09-04] MEDS: carvediloL 3.125 MG TABLET PO SCH ×3 (02:41→20:25)
[2022-09-04] MEDS: SODIUM CHLORIDE FLUSH 0.9% 10 ML SYRINGE IVP SCH ×3 (02:43→16:22)
[2022-09-04] MEDS: FUROSEMIDE 40 MG/4 ML VIAL IVP SCH ×3 (03:42→13:32)
[2022-09-04 05:48] LABS: BASOPHILS % (AUTO) 0.7 %; EOSINOPHILS # (AUTO) 0.1 10^3/uL (0.0-0.7); EOSINOPHILS % (AUTO) 1.5 %; HGB - HEMOGLOBIN 11.2 g/dL (14.0-18.0); LYMPHOCYTES # (AUTO) 0.6 10^3/uL (1.5-3.5); MEAN CORPUSCULAR HGB CONC 31.1 g/dL (32.0-36.0); MEAN CORPUSCULAR VOLUME 99.7 fL (80.0-94.0); MEAN PLATELET VOLUME 11.1 fL (7.4-11.4); MONOCYTES # (AUTO) 0.5 10^3/uL (0.0-1.0); MONOCYTES % (AUTO) 9.5 %; NEUTROPHILS # (AUTO) 4.2 10^3/uL (1.5-6.6); NEUTROPHILS % (AUTO) 77.1 %; PLT - PLATELET COUNT 168 10^3/uL (130-450); RED BLOOD COUNT 3.61 10^6/uL (4.70-6.10); RED CELL DISTRIBUTION WIDTH 15.3 % (12.0-15.0); WHITE BLOOD COUNT 5.5 x10^3/uL (4.8-10.8)
[2022-09-04 06:01] LABS: ALBUMIN 3.3 g/dL (3.2-5.5); BILIRUBIN,TOTAL 1.8 mg/dL (0.2-1.0); CALCIUM 8.9 mg/dL (8.5-10.3); CREATININE 1.8 mg/dL (0.6-1.2); MAGNESIUM 1.6 mg/dL (1.7-2.8); PHOSPHORUS 4.1 mg/dL (2.5-4.6); POTASSIUM 3.3 mmol/L (3.5-5.0); TOTAL PROTEIN 6.5 g/dL (6.7-8.2)
[2022-09-04] MEDS: PANTOPRAZOLE 40 MG TABLET PO SCH (06:07)
[2022-09-04] MEDS: ALBUTEROL NEB 2.5 MG/3 ML INH PRN ×2 (07:49→16:17)
--- NOTE | 2022-09-04 08:18 | PHARMACY PROGRESS NOTE ---
- Best Possible Medication History Admit Date and Time: 09/04/22 0209 Processed by: Nursing Medication History completed: Yes As the person ultimately responsible for medication therapy, providers are able to order a medication from an existing home medication list in [facility] via the "Reconcile Routine" prior to Confirmation of that medication by product support technician. Such practice is discouraged except when the physician, in their clinical judgment, deems that a medical need exists for a medication without regard to previous use.
[2022-09-04] MEDS: APIXABAN 2.5 MG TABLET PO SCH ×2 (08:37→20:26)
[2022-09-04] MEDS: allopurinoL 100 MG TABLET PO SCH (08:37)
[2022-09-04 08:53] LABS: ESTIMATED AVERAGE GLUCOSE 134 mg/dL (70-100); HEMOGLOBIN A1c% 6.3 % (4.27-6.07)
[2022-09-04] MEDS ORDERED: allopurinoL 100 MG TABLET PO SCH (09:00)
--- NOTE | 2022-09-04 12:17 | PROVIDER PROGRESS NOTE ---
Hospitalist Cross-cover Note - Cross-Cover Note Cross-Cover Note: The patient was hospitalized overnight. Unfortunately we were unable to start the Lasix drip because that cannot be done on [facility] and we had no ICU beds. He is stable this morning. In that he is responding to the diuretic therapy. Heart rate is intermittently fast in the low 100s. Blood pressure 125/93. He is down to 1 L and 95% room air. But very tachypneic on exam with crackles at lung bases. Continue with diuresis and control of heart rate
[2022-09-04] MEDS ORDERED: MORPHINE SOL 10 MG/0.5 ML ORAL SYRINGE PO PRN (15:23)
[2022-09-04] MEDS: oxyCODONE 10 MG/0.5 ML SYRINGE PO PRN (20:26)
[2022-09-05] MEDS: SODIUM CHLORIDE FLUSH 0.9% 10 ML SYRINGE IVP SCH ×3 (01:31→16:34)
[2022-09-05] MEDS: ALBUTEROL NEB 2.5 MG/3 ML INH PRN (04:56)
[2022-09-05 06:14] LABS: HCT - HEMATOCRIT 36.1 % (42.0-52.0); HGB - HEMOGLOBIN 11.5 g/dL (14.0-18.0); MEAN CORPUSCULAR HEMOGLOBIN 31.5 pg (27.0-31.0); MEAN CORPUSCULAR HGB CONC 31.9 g/dL (32.0-36.0); MEAN CORPUSCULAR VOLUME 98.9 fL (80.0-94.0); MEAN PLATELET VOLUME 11.3 fL (7.4-11.4); RED BLOOD COUNT 3.65 10^6/uL (4.70-6.10); RED CELL DISTRIBUTION WIDTH 15.1 % (12.0-15.0); WHITE BLOOD COUNT 8.2 x10^3/uL (4.8-10.8)
[2022-09-05 06:24] LABS: CALCIUM 9.1 mg/dL (8.5-10.3); MAGNESIUM 1.6 mg/dL (1.7-2.8)
[2022-09-05] MEDS: FUROSEMIDE 40 MG/4 ML VIAL IVP SCH (06:57)
[2022-09-05] MEDS: PANTOPRAZOLE 40 MG TABLET PO SCH (06:57)
[2022-09-05] MEDS: APIXABAN 2.5 MG TABLET PO SCH ×2 (09:04→21:03)
[2022-09-05] MEDS: allopurinoL 100 MG TABLET PO SCH (09:04)
[2022-09-05] MEDS: carvediloL 3.125 MG TABLET PO SCH ×2 (09:06→21:03)
[2022-09-05] MEDS: POTASSIUM CHLOR 10 MEQ/100 ML 10 MEQ/100 ML BAG IV SCH ×6 (09:25→16:34)
[2022-09-05] MEDS: oxyCODONE 10 MG/0.5 ML SYRINGE PO PRN (12:28)
--- NOTE | 2022-09-05 13:54 | PROVIDER PROGRESS NOTE ---
Subjective - Prog Note Date Prog Note Date: 09/05/22 Prog Note Time: 14:05 - Subjective Subjective: Less short of breath. More mobile within the room. But still short of breath with minimal activity. Brisk diuretic response to his Lasix. Weight is down. Current Medications - Current Medications Current Medications: Active Medications Acetaminophen (Acetaminophen 325 Mg Tablet) 650 mg PO Q4HR PRN PRN Reason: Pain 1 to 4, or Fever Hydrocodone Bitart/Acetaminophen (Hydrocod/Acetam 5/325 Mg Tablet) 1 tab PO Q4HR PRN PRN Reason: Pain 5 to 7 Albuterol (Albuterol Neb 2.5 Mg/3 Ml) 2.5 mg INH Q4H PRN PRN Reason: Wheezing Last Admin: 09/05/22 04:56 Dose: 2.5 mg Allopurinol (Allopurinol 100 Mg Tablet) 100 mg PO DAILY [facility] Last Admin: 09/05/22 09:04 Dose: 100 mg Apixaban (Apixaban 2.5 Mg Tablet) 2.5 mg PO BID [facility] Last Admin: 09/05/22 09:04 Dose: 2.5 mg Carvedilol (Carvedilol 3.125 Mg Tablet) 3.125 mg PO BID [facility] Last Admin: 09/05/22 09:06 Dose: 3.125 mg Furosemide (Furosemide 40 Mg Tablet) 40 mg PO DAILY [facility] Potassium Chloride (Potassium Chloride) 10 meq in 100 mls @ 100 mls/hr IV Q1H [facility] Stop: 09/05/22 14:59 Last Admin: 09/05/22 13:36 Dose: 75 mls/hr Lisinopril (Lisinopril 5 Mg Tablet) 20 mg PO HS [facility] Last Admin: 09/04/22 20:26 Dose: 20 mg Magnesium Oxide (Magnesium Oxide 400 Mg Tablet) 400 mg PO DAILYWM [facility] Morphine Sulfate (Morphine 2 Mg/Ml Carpuject) 2 mg IVP Q2HR PRN PRN Reason: Pain 8 to 10 Ondansetron HCl (Ondansetron 4 Mg/2 Ml Vial) 4 mg IVP Q6HR PRN PRN Reason: Nausea / Vomiting Oxycodone HCl (Oxycodone 10 Mg/0.5 Ml Syringe) 5 mg PO Q4HR PRN PRN Reason: Shortness of Air/Wheezing Last Admin: 09/05/22 12:28 Dose: 5 mg Pantoprazole Sodium (Pantoprazole 40 Mg Tablet) 40 mg PO QDAC [facility] Last Admin: 09/05/22 06:57 Dose: 40 mg Sodium Chloride (Sodium Chloride Flush 0.9% 10 Ml Syringe) 10 ml IVP 0100,0900,1700 [facility] Last Admin: 09/05/22 09:04 Dose: 10 ml Sodium Chloride (Sodium Chloride Flush 0.9% 10 Ml Syringe) 10 ml IVP PRN PRN PRN Reason: NEEDED PER PROVIDER ORDERS Last Admin: 09/05/22 09:21 Dose: 10 ml Temazepam (Temazepam 15 Mg Capsule) 15 mg PO QPM PRN PRN Reason: Insomnia Furosemide 40 mg PO DAILY 12/14/16 allopurinoL [Allopurinol] 300 mg PO DAILY 12/14/16 Apixaban [Eliquis] 2.5 mg PO BID 03/29/22 Albuterol 2.5 mg INH Q4H PRN 09/03/22 Rosuvastatin Calcium [Crestor] 20 mg PO 09/05/22 Tiotropium Hospers [Spiriva] 1 puffs INH DAILY 09/05/22 diltiaZEM CD [Cardizem Cd] 120 mg PO ONCE 09/05/22 Objective - Vital Signs/Intake & Output Reviewed Vital Signs: Yes Vital Signs: Vital Signs x48h Temp Pulse Resp BP Pulse Ox O2 Flow Rate 09/05/22 13:24 95 1 09/05/22 13:16 1 09/05/22 13:15 89 L 0.5 09/05/22 12:40 92 0.5 09/05/22 12:39 88 L 09/05/22 12:32 97 1 09/05/22 11:14 36.6 C 105 H 23 108/76 93 1 09/05/22 07:59 94 1 09/05/22 07:35 1.5 09/05/22 07:25 36.6 C 109 H 22 115/80 92 1 Intake & Output: Intake & Output 09/02/22 09/03/22 09/04/22 09/05/22 23:59 23:59 23:59 23:59 Intake Total 700 1283.5 Output Total 4325 4025 Balance -9597 -5201.5 - Objective General Appearance: positive: Alert, Other (When he is in his room by himself, he groans quite a bit. It is audible down the hallway. Yet when we walk in the room the groaning stops, and he says that it is more just of a response of the effort it takes to get up and do things not pain) Eyes Bilateral: positive: PERRL, EOMI ENT: positive: Pharynx nml Neck: positive: No JVD. negative: Stiff neck Respiratory: positive: Other (But he pants with exertion at times. Diminished breath sounds at the bases. No wheezing.). negative: Rales Cardiovascular: positive: Irregularly irregular, Systolic murmur Abdomen: positive: Non-tender, No organomegaly, Nml bowel sounds, No distention Skin: positive: Warm, Dry Extremities: positive: Pedal edema Neurologic/Psychiatric: positive: Oriented x3 (But is very forgetful gentleman.), CN's nml (2-12) (Moderately deaf), Motor nml (Slow shuffling gait) - Lab Results Fish Bones: 09/05/22 05:51 09/05/22 05:51 Other Labs: Lab Results x24hrs 09/05/22 09/05/22 09/05/22 Range/Units 11:11 07:24 05:51 WBC (4.8-10.8) x10^3/uL RBC (4.70-6.10) 10^6/uL Hgb (14.0-18.0) g/dL Hct (42.0-52.0) % MCV (80.0-94.0) fL MCH (27.0-31.0) pg MCHC (32.0-36.0) g/dL RDW (12.0-15.0) % Plt Count (130-450) 10^3/uL MPV (7.4-11.4) fL Sodium 139 (135-145) mmol/L Potassium 3.0 L (3.5-5.0) mmol/L Chloride 97 L (101-111) mmol/L Carbon Dioxide 30 (21-32) mmol/L Anion Gap 12.0 (6-13) BUN 34 H (6-20) mg/dL Creatinine 2.0 H (0.6-1.2) mg/dL Estimated GFR (MDRD) 32 L (>89) Glucose 128 H (70-100) mg/dL POC Whole Bld Glucose 122 H 117 H (70 - 100) mg/dL Calcium 9.1 (8.5-10.3) mg/dL Magnesium 1.6 L (1.7-2.8) mg/dL 09/05/22 09/04/22 09/04/22 Range/Units 05:51 20:36 16:45 WBC 8.2 (4.8-10.8) x10^3/uL RBC 3.65 L (4.70-6.10) 10^6/uL Hgb 11.5 L (14.0-18.0) g/dL Hct 36.1 L (42.0-52.0) % MCV 98.9 H (80.0-94.0) fL MCH 31.5 H (27.0-31.0) pg MCHC 31.9 L (32.0-36.0) g/dL RDW 15.1 H (12.0-15.0) % Plt Count 163 (130-450) 10^3/uL MPV 11.3 (7.4-11.4) fL Sodium (135-145) mmol/L Potassium (3.5-5.0) mmol/L Chloride (101-111) mmol/L Carbon Dioxide (21-32) mmol/L Anion Gap (6-13) BUN (6-20) mg/dL Creatinine (0.6-1.2) mg/dL Estimated GFR (MDRD) (>89) Glucose (70-100) mg/dL POC Whole Bld Glucose 140 H 127 H (70 - 100) mg/dL Calcium (8.5-10.3) mg/dL Magnesium (1.7-2.8) mg/dL Sepsis Event Note (H) - Evaluation Current Stage of Sepsis: Ruled out Assessment/Plan - Problem List (1) Acute exacerbation of CHF (congestive heart failure) Impression: Yesterday his balance was negative by 3225 cc. As of today he is negative by 2741 cc. His weight on admission was 99.7 kg. By the end of the day he was 91.5 kg. Today he is 88.5 kg. But he is still short of breath with minimum exertion. Getting up out of bed stress inducing coughing and moaning. By the time he gets to the bathroom to sit on the toilet he is run out of gas. He says he is better. Cough is his main problem. He was using 3 L yesterday, down to 1 L and he is 95%. At times with exertion he can go down to 89%. I expect that he may be at baseline status by tomorrow. Of note, today is his birthday. He has developed hypokalemia with the diuresis. Continue: Daily wieght, Change activity to as tolerated as opposed to bed rest Stict in and out Coreg Lisinopril Echo Has been ordered. Will be done tomorrow with the next scheduled dispensary technician being here lasix drip Was not used. He is on Lasix IV push twice daily and doing well.Creatinine is starting to come up. Weight is down substantially. We will change Lasix to p.o. Supplement potassium Heart failure education Recommend stress test In the outpatient setting. This is if he feels that it is something he wants to pursue at the age of 87. (2) Atrial fibrillation with RVR Conclusion/Plan: He continue to be with high rates when he was first admitted 122 and as high as 135. When he is at rest his heart rate will drop to the 50s. When he gets up to go to the bathroom his heart rate will get as high as 116. He is on Coreg. Also on Eliquis at 2.5. He received 1 dose of digoxin on admission but that has not been continued. Since his heart rate is responding and is down in the 50s at times I will hold off on any further rate lowering drug (3) CKD (chronic kidney disease) Conclusion/Plan: His creatinine was 1.7 before admission. He was 1.8 for the last 2 days. With diuresis his creatinine is come up to 2. As such I think we are reaching the limits of how much more I can diurese him. We will change Lasix to p.o. (4) Leg edema Conclusion/Plan: romy stocking and diuresis on intermodal customer service Eliquis last admission had doppler and DVt ruled out (5) Troponin level elevated Conclusion/Plan: Troponin #1 was 69, #2 was 84, and #3 was 87. Likely Type II [place] demand ischemia from A fib with rvr and chf in setting of cKD Continue to closely monitor (6) BPH (benign prostatic hyperplasia) Conclusion/Plan: Place Batista for strict In and out While in ER tried to stand up to urinate and got unsteady and severe SOB and fatigue . He still has shortness of breath and fatigue with getting up but not nearly as severe as it was yesterday. Yesterday he would be gasping for air.Today is better. (7) CAD (coronary artery disease) Conclusion/Plan: S/p PCI in 2011 Details not known outpatient stress test - Pharmacological If he wants to pursue further treatment of his coronary artery disease from a more aggressive perspective (8) Diabetes Conclusion/Plan: A1c is 6.3%. He has not needed any supplemental coverage while here. We will stop [id number] glucose testing.We will add Ensure because of poor p.o. intake. Qualifiers: Diabetes mellitus type: type 2 (9) Hx of coronary artery disease Conclusion/Plan: Troponin's were flat. No change in management (10) Hypertension Conclusion/Plan: on lisinopril Coreg :
[2022-09-05] MEDS: MAGNESIUM OXIDE 400 MG TABLET PO SCH (14:33)
[2022-09-05] MEDS ORDERED: lisinopriL 20 MG TABLET PO SCH (21:00)
[2022-09-06] MEDS: SODIUM CHLORIDE FLUSH 0.9% 10 ML SYRINGE IVP SCH ×3 (02:04→20:41)
[2022-09-06 04:53] LABS: BASOPHILS % (AUTO) 0.3 %; EOSINOPHILS # (AUTO) 0.1 10^3/uL (0.0-0.7); EOSINOPHILS % (AUTO) 1.3 %; HCT - HEMATOCRIT 36.7 % (42.0-52.0); HGB - HEMOGLOBIN 11.5 g/dL (14.0-18.0); LYMPHOCYTES # (AUTO) 0.8 10^3/uL (1.5-3.5); LYMPHOCYTES % (AUTO) 9.2 %; MEAN CORPUSCULAR HEMOGLOBIN 30.9 pg (27.0-31.0); MEAN CORPUSCULAR HGB CONC 31.3 g/dL (32.0-36.0); MEAN CORPUSCULAR VOLUME 98.7 fL (80.0-94.0); MEAN PLATELET VOLUME 11.4 fL (7.4-11.4); MONOCYTES % (AUTO) 11.7 %; NEUTROPHILS # (AUTO) 6.7 10^3/uL (1.5-6.6); NEUTROPHILS % (AUTO) 77.3 %; PLT - PLATELET COUNT 184 10^3/uL (130-450); RED BLOOD COUNT 3.72 10^6/uL (4.70-6.10); RED CELL DISTRIBUTION WIDTH 14.8 % (12.0-15.0); WHITE BLOOD COUNT 8.7 x10^3/uL (4.8-10.8)
[2022-09-06 05:02] LABS: CALCIUM 9.4 mg/dL (8.5-10.3); POTASSIUM 3.5 mmol/L (3.5-5.0)
[2022-09-06] MEDS: PANTOPRAZOLE 40 MG TABLET PO SCH (06:54)
[2022-09-06] MEDS: FUROSEMIDE 40 MG TABLET PO SCH (10:01)
[2022-09-06] MEDS: allopurinoL 100 MG TABLET PO SCH (10:02)
[2022-09-06] MEDS: METOPROLOL SUCCINATE 25 MG TABLET PO SCH ×2 (10:02→20:41)
[2022-09-06] MEDS: APIXABAN 2.5 MG TABLET PO SCH ×2 (10:02→20:41)
[2022-09-06] MEDS: MAGNESIUM OXIDE 400 MG TABLET PO SCH (10:03)
--- NOTE | 2022-09-06 12:16 | PROVIDER PROGRESS NOTE ---
Assessment/Plan - Problem List (1) Acute exacerbation of CHF (congestive heart failure) Assessment/Plan: Etiology is unclear, the Echocardiogram has not yet been done. We will order diuretics and he has had >5 L neg fluid balance. But he is still short of breath with minimum exertion. Getting up out of bed caused coughing and moaning, which he reports are both somewhat better. Continue with diuresis, Lasix is now once daily orally. Continue to follow daily weight, I's and O's Batista can be DCd today Echo ordered and is pending (we only have Echo service -, today is ) Continue beta-blockers and adjust medications for better rate control. Continue with his EH inhibitor and depending on EF will start Spironolactone HGe will likely need a stress test in the outpatient setting. This is if he feels that it is something he wants to pursue at the age of 87. (2) Atrial fibrillation with RVR Conclusion/Plan: He continues to have high heart rates intermittently, most;ly with standing and walking. Continue B-clare and will increase the dose, therefore will decrease Lisinopril dose somewhat. Continue on Eliquis at 2.5 bid for stroke prevention (3) CKD (chronic kidney disease) Conclusion/Plan: His creatinine was 1.7 before admission and was 1.8 for the last 2 days. With diuresis his creatinine has increased up to 2. Because of this his IV Lasix was changed to p.o. Avoid nephrotoxins. Follow BMP daily (4) Leg edema Conclusion/Plan: He still has 4+ pitting edema to his thighs. He states he "cannot elevate his legs", unclear why, since he walks. Continue romy stocking and diuresis Plan jail Eliquis, and at the last admission he had doppler and DVt ruled out (5) Troponin level elevated Conclusion/Plan: Troponin #1 was 69, #2 was 84, and #3 was 87. Likely Type II [place], demand ischemia from A fib with rvr and chf in setting of cKD Continue to closely monitor and treat CHF and HR (6) BPH (benign prostatic hyperplasia) Conclusion/Plan: Will remove the Batista today, it was needed to closely follow I's and O's. He may need to stand up to urinate (7) Hx of CAD (coronary artery disease) Conclusion/Plan: S/p PCI in 2011 Details not known Troponin's were flat. No change in management planned as an Inpt (since we do not have staff to do a stress test) Plan a pharmaceutical outpatient stress test, if he wants to pursue further ruel tment of his coronary artery disease from a more aggressive perspective (8) Diabetes Conclusion/Plan: A1c is 6.3%, indicating Borderline DM. He has not needed any supplemental coverage while here. We will stop [id number] glucose testing. We added Ensure because of poor p.o. intake. Qualifiers: Diabetes mellitus type: type 2 (9) Hypertension Conclusion/Plan: Cont B-clocker and lisinopril - Current Meds Current Meds: Current Medications Generic Name Dose Route Start Last Admin Trade Name Freq PRN Reason Stop Dose Admin Albuterol 2.5 mg 09/04/22 00:45 09/05/22 04:56 Albuterol Neb 2.5 Mg/3 Ml INH 2.5 mg Q4H PRN Administration Wheezing Allopurinol 100 mg 09/04/22 09:00 09/06/22 10:02 Allopurinol 100 Mg Tablet PO 100 mg DAILY CASEY Administration Apixaban 2.5 mg 09/04/22 09:00 09/06/22 10:02 Apixaban 2.5 Mg Tablet PO 2.5 mg BID CASEY Administration Furosemide 40 mg 09/06/22 09:00 09/06/22 10:01 Furosemide 40 Mg Tablet PO 40 mg DAILY CASEY Administration Magnesium Oxide 400 mg 09/05/22 14:00 09/06/22 10:03 Magnesium Oxide 400 Mg Tablet PO 400 mg DAILYWM CASEY Administration Metoprolol Succinate 25 mg 09/06/22 09:00 09/06/22 10:02 Metoprolol Succinate 25 Mg Tablet PO 25 mg BID CASEY Administration Oxycodone HCl 5 mg 09/04/22 16:03 09/05/22 12:28 Oxycodone 10 Mg/0.5 Ml Syringe PO 5 mg Q4HR PRN Administration Shortness of Air/Wheezing Pantoprazole Sodium 40 mg 09/04/22 07:00 09/06/22 06:54 Pantoprazole 40 Mg Tablet PO 40 mg QDAC CASEY Administration Sodium Chloride 10 ml 09/04/22 01:00 09/06/22 10:43 Sodium Chloride Flush 0.9% 10 Ml Syringe IVP 10 ml 0100,0900,1700 CASEY Administration Sodium Chloride 10 ml 09/04/22 00:26 09/05/22 09:21 Sodium Chloride Flush 0.9% 10 Ml Syringe IVP 10 ml PRN PRN Administration NEEDED PER PROVIDER ORDERS - Lab Result Fish Bone Diagrams: 09/06/22 04:36 09/06/22 04:36 - Additional Planning My Orders: My Active Orders 09/06/22 09:00 Metoprolol Succinate [Toprol Xl] 25 mg PO BID 09/06/22 10:00 Ipratropium [Atrovent] 0.5 mg INH RTQID 09/06/22 21:00 lisinopriL [Zestril] 10 mg PO HS 09/07/22 05:00 MAGNESIUM [CHEM] DAILYLAB Subjective - Subjective Patient Reports: Cough, Shortness of Breath (Very SOB withactivity) Nursing Reports: Other (RN reports he is very orthopneic, could not lie flat in bed to have Batista removed, needed to stand) Objective Vital Signs: Vital Signs - 24 hr 09/05/22 09/05/22 09/05/22 12:32 12:39 12:40 Temperature Heart Rate [ Radial] Respiratory Rate Blood Pressure [Left Brachial artery] Blood Pressure [Right Brachial artery] O2 Saturation 97 88 L 92 If not protocol 1 0.5 : Oxygen Flow, liters/minute 09/05/22 09/05/22 09/05/22 13:15 13:16 13:24 Temperature Heart Rate [ Radial] Respiratory Rate Blood Pressure [Left Brachial artery] Blood Pressure [Right Brachial artery] O2 Saturation 89 L 95 If not protocol 0.5 1 1 : Oxygen Flow, liters/minute 09/05/22 09/05/22 09/05/22 16:18 20:46 23:09 Temperature 36.7 C 37.0 C 36.7 C Heart Rate [ 88 111 H 56 L Radial] Respiratory 18 18 18 Rate Blood Pressure [Left Brachial artery] Blood Pressure 118/88 H 112/76 120/73 [Right Brachial artery] O2 Saturation 96 95 90 L If not protocol 1 1 1 : Oxygen Flow, liters/minute 09/06/22 09/06/22 09/06/22 05:15 07:25 07:28 Temperature 36.6 C 36.7 C Heart Rate [ 126 H 108 H Radial] Respiratory 20 22 Rate Blood Pressure [Left Brachial artery] Blood Pressure 112/73 103/56 L [Right Brachial artery] O2 Saturation 91 L 92 If not protocol 1 1 1 : Oxygen Flow, liters/minute 09/06/22 09/06/22 09/06/22 09:25 09:30 10:01 Temperature Heart Rate [ 119 H 115 H 109 H Radial] Respiratory 22 Rate Blood Pressure 97/66 100/80 105/71 [Left Brachial artery] Blood Pressure [Right Brachial artery] O2 Saturation If not protocol : Oxygen Flow, liters/minute 09/06/22 09/06/22 10:04 11:15 Temperature 36.6 C Heart Rate [ 103 H 114 H Radial] Respiratory 20 Rate Blood Pressure 113/74 109/88 H [Left Brachial artery] Blood Pressure [Right Brachial artery] O2 Saturation 97 If not protocol 1 : Oxygen Flow, liters/minute Oxygen O2 Source Nasal cannula Oxygen Flow Rate 3 I&O (Last 24 Hrs): Intake and Output Totals x24h 09/04/22 09/05/22 09/06/22 23:59 23:59 23:59 Intake Total 700 2283.5 480 Output Total 4325 5075 1050 Balance -9455 -2791.5 -570 General: Alert, Oriented x3, Other (Thin, frail appearing, sitting in chair leaning forward (as if tripoding), wearing O2 per n.c.) HEENT: Mucous membr. moist/pink Neck: Supple, No JVD (in a vertical position) Neuro: Alert, Non Focal Cardiovascular: No murmurs, Other (Distant heart sounds, tachycardic and irreg) Respiratory: Rales, Rhonchi Abdomen: Soft Extremities: Other (4+ pitting edema to upper thighs) - Results Results: Laboratory Results WBC 8.7 x10^3/uL (4.8-10.8) 09/06/22 04:36 RBC 3.72 10^6/uL (4.70-6.10) L 09/06/22 04:36 Hgb 11.5 g/dL (14.0-18.0) L 09/06/22 04:36 Hct 36.7 % (42.0-52.0) L 09/06/22 04:36 MCV 98.7 fL (80.0-94.0) H 09/06/22 04:36 MCH 30.9 pg (27.0-31.0) 09/06/22 04:36 MCHC 31.3 g/dL (32.0-36.0) L 09/06/22 04:36 RDW 14.8 % (12.0-15.0) 09/06/22 04:36 Plt Count 184 10^3/uL (130-450) 09/06/22 04:36 MPV 11.4 fL (7.4-11.4) 09/06/22 04:36 Neut # (Auto) 6.7 10^3/uL (1.5-6.6) H 09/06/22 04:36 Lymph # (Auto) 0.8 10^3/uL (1.5-3.5) L 09/06/22 04:36 [place] # (Auto) 1.0 10^3/uL (0.0-1.0) 09/06/22 04:36 Eos # (Auto) 0.1 10^3/uL (0.0-0.7) 09/06/22 04:36 Baso # (Auto) 0.0 10^3/uL (0.0-0.1) 09/06/22 04:36 Absolute Nucleated RBC 0.00 x10^3/uL 09/06/22 04:36 Nucleated RBC % 0.0 /100WBC 09/06/22 04:36 Sodium 139 mmol/L (135-145) 09/06/22 04:36 Potassium 3.5 mmol/L (3.5-5.0) 09/06/22 04:36 Chloride 95 mmol/L (101-111) L 09/06/22 04:36 Carbon Dioxide 32 mmol/L (21-32) 09/06/22 04:36 Anion Gap 12.0 (6-13) 09/06/22 04:36 BUN 42 mg/dL (6-20) H 09/06/22 04:36 Creatinine 2.0 mg/dL (0.6-1.2) H 09/06/22 04:36 Estimated GFR (MDRD) 32 (>89) L 09/06/22 04:36 Glucose 137 mg/dL (70-100) H 09/06/22 04:36 POC Whole Bld Glucose 182 mg/dL (70 - 100) H 09/06/22 11:15 Estimat Average Glucose 134 mg/dL (70-100) H 09/04/22 05:17 Hemoglobin A1c % 6.3 % (4.27-6.07) H 09/04/22 05:17 Lactic Acid 1.5 mmol/L (0.5-2.2) 09/03/22 21:56 Calcium 9.4 mg/dL (8.5-10.3) 09/06/22 04:36 Phosphorus 4.1 mg/dL (2.5-4.6) 09/04/22 05:17 Magnesium 1.6 mg/dL (1.7-2.8) L 09/06/22 04:36 Total Bilirubin 1.8 mg/dL (0.2-1.0) H 09/04/22 05:17 AST 44 IU/L (10-42) H 09/04/22 05:17 ALT 27 IU/L (10-60) 09/04/22 05:17 Alkaline Phosphatase 262 IU/L (42-121) H 09/04/22 05:17 Troponin I High Sens 87.8 ng/L (2.3-19.7) H* 09/04/22 05:17 B-Natriuretic Peptide 3543 pg/mL (5-100) H 09/03/22 21:56 Total Protein 6.5 g/dL (6.7-8.2) L 09/04/22 05:17 Albumin 3.3 g/dL (3.2-5.5) 09/04/22 05:17 Globulin 3.2 g/dL (2.1-4.2) 09/04/22 05:17 Albumin/Globulin Ratio 1.0 (1.0-2.2) 09/04/22 05:17 Triglycerides 48 mg/dL (-149) 09/04/22 01:00 Cholesterol 84 mg/dL (-199) 09/04/22 01:00 LDL Cholesterol, Calc 44 mg/dL (-129) 09/04/22 01:00 VLDL Cholesterol 10 mg/dL 09/04/22 01:00 HDL Cholesterol 30 mg/dL (60-) L 09/04/22 01:00 LDL/HDL Ratio 1.5 (<3.6) 09/04/22 01:00 Cholesterol/HDL Ratio 2.8 (<5.0) 09/04/22 01:00 Lipase 34 U/L (22-51) 09/03/22 21:56 TSH < 0.08 uIU/mL (0.34-5.60) L 09/04/22 05:17 SARS-CoV-2 (PCR) NOT DETECTED 09/03/22 21:53 - Procedures Procedures: Procedures INTRODUCTION OF ANTI-INFLAM INTO PERIPH VEIN, PERC APPROACH (03/28/22) Sepsis Event Note (H) - Evaluation Current Stage of Sepsis: Ruled out
[2022-09-06] MEDS: IPRATROPIUM 0.2 MG/ML NEB INH SCH (15:54)
[2022-09-06] MEDS: lisinopriL 5 MG TABLET PO SCH (20:37)
[2022-09-06] MEDS ORDERED: ZINC OXIDE 20% OINT 30 GM TUBE TOP PRN (21:11)
[2022-09-07] MEDS: SODIUM CHLORIDE FLUSH 0.9% 10 ML SYRINGE IVP SCH ×3 (01:00→18:14)
[2022-09-07 05:39] LABS: BASOPHILS % (AUTO) 0.4 %; EOSINOPHILS # (AUTO) 0.1 10^3/uL (0.0-0.7); EOSINOPHILS % (AUTO) 0.9 %; HCT - HEMATOCRIT 35.7 % (42.0-52.0); HGB - HEMOGLOBIN 11.2 g/dL (14.0-18.0); LYMPHOCYTES # (AUTO) 0.7 10^3/uL (1.5-3.5); LYMPHOCYTES % (AUTO) 13.1 %; MEAN CORPUSCULAR HEMOGLOBIN 30.8 pg (27.0-31.0); MEAN CORPUSCULAR HGB CONC 31.4 g/dL (32.0-36.0); MEAN CORPUSCULAR VOLUME 98.1 fL (80.0-94.0); MEAN PLATELET VOLUME 11.5 fL (7.4-11.4); MONOCYTES # (AUTO) 0.8 10^3/uL (0.0-1.0); MONOCYTES % (AUTO) 14.8 %; NEUTROPHILS # (AUTO) 3.8 10^3/uL (1.5-6.6); NEUTROPHILS % (AUTO) 70.6 %; PLT - PLATELET COUNT 162 10^3/uL (130-450); RED BLOOD COUNT 3.64 10^6/uL (4.70-6.10); RED CELL DISTRIBUTION WIDTH 14.7 % (12.0-15.0); WHITE BLOOD COUNT 5.4 x10^3/uL (4.8-10.8)
[2022-09-07 05:47] LABS: CALCIUM 9.2 mg/dL (8.5-10.3); CREATININE 2.2 mg/dL (0.6-1.2); MAGNESIUM 1.7 mg/dL (1.7-2.8); POTASSIUM 2.9 mmol/L (3.5-5.0)
[2022-09-07] MEDS: PANTOPRAZOLE 40 MG TABLET PO SCH (07:02)
[2022-09-07] MEDS: METOPROLOL SUCCINATE 25 MG TABLET PO SCH ×2 (08:10→20:46)
[2022-09-07] MEDS: FUROSEMIDE 40 MG TABLET PO SCH (08:10)
[2022-09-07] MEDS: MAGNESIUM OXIDE 400 MG TABLET PO SCH (08:10)
[2022-09-07] MEDS: APIXABAN 2.5 MG TABLET PO SCH ×2 (08:11→20:45)
[2022-09-07] MEDS: allopurinoL 100 MG TABLET PO SCH (08:11)
[2022-09-07] MEDS: IPRATROPIUM 0.2 MG/ML NEB INH SCH ×3 (08:19→08:31)
[2022-09-07] MEDS: ALBUTEROL NEB 2.5 MG/3 ML INH PRN (08:30)
[2022-09-07] MEDS ORDERED: IPRATROPIUM/ALBUTEROL 3 ML NEB INH PRN (09:02)
--- NOTE | 2022-09-07 09:06 | PROVIDER PROGRESS NOTE ---
Assessment/Plan - Problem List (1) Acute exacerbation of CHF (congestive heart failure) Qualifiers: Heart failure type: systolic Qualified Code(s): I50.23 - Acute on chronic systolic (congestive) heart failure Assessment/Plan: Echocardiogram was done and shows LVEF of <20% and 4-chamber dilitation. He has never had an Echo done here before to have a comparison, but based on his medications, this is new systolic heart failure. Continue with diuresis, Lasix is now once daily orally. Continue to follow daily weight, I's and O's and daily BMP. Watching his elevated BUN/creat ratio, signifying that we are drying out his intravascular space, but he still has 4+ leg edema Continue beta-blockers and will need to increase the dose further today, for better rate control. Continue with his EH inhibitor, decreasing the dose, as we increase the B-b locker for rate control, also watching the rising creat. If needed, he could be on Hydralazine + Nitrates. Will start Spironolactone tomorrow Because he has pulled off his telemetry and pulled out his IV 4 times since admission, will discontinue telemetry and IV orders, as he is on po meds and we can follow HR during VS checks. He will likely need a stress test in the outpatient setting, since we have no stress testing service available here whatsoever currently. This is, if he feels that it is something he wants to pursue at the age of 87. (2) Atrial fibrillation with RVR Conclusion/Plan: He continues to have high heart rates >100 only intermittently, now mostly with standing and walking. Continue B-clare and will increase the dose once again, therefore will further decrease Lisinopril dose somewhat. He was on Cardizem at home which has not been started here and we will try not to resume it, if possible, because of the (new) systolic heart failure Continue on Eliquis at 2.5 bid for his anticoagulant for stroke prevention (3) COPD with exacerbation In review of the chart and after talking to the by phone today, it appears he does have known COPD, is currently not on home oxygen, but may have had it in the remote past. He is on inhalers but continues to smoke. His exam is consistent with COPD exacerbation. Will change his as needed albuterol to DuoNeb scheduled and as needed DuoNeb. Will continue with supplemental oxygen keeping saturations over 88%. (4) Leg edema Conclusion/Plan: He still has 4+ pitting edema to his thighs. He states he "cannot elevate his legs", unclear why, since he walks. The Echo result is back and it shows that he has an RV dilated, cor pulmonale and mild pulm hypertension with PA pressure 54 mmHg Continue romy stocking and gentle diuresis At the last admission in 04/10, he was on Eliquis and he had leg doppler due to swelling, and DVt was ruled out. Will not repeat a leg Doppler. (5) Hypokalemia Related to IV diuresis. Will replace potassium gently, given the worsening creatinine. Follow BMP daily (6) CKD (chronic kidney disease) Conclusion/Plan: His creatinine was 1.7 before admission and has increased with IV Lasix. His Lasix is now po for more gentle diuresis. Avoid nephrotoxins. Follow BMP daily (7) Acute delirium He has pulled off his telemetry and pulled out his IV 4 times since admission, needs to be reminded to call for assistance standing up. I reviewed the chart and this type of confusion while hospitalized was also seen at the last admission. The had told the last admission's Hospitalist that the patient has mild dementia I spoke to his today by phone, and she confirmed that he has poor short- term memory, excellent long-term memory. The had a suspicion that maybe he is fidgety because of nicotine withdrawal, since she reports that he still smokes 3 packs/day. Will order nicotine patch. Will obtain a head CT to evaluate for stroke or atrophy. (8) BPH (benign prostatic hyperplasia) Conclusion/Plan: We have restarted his meds He may need to stand up to urinate (9) Tobacco abuse I spoke to his today by phone, and she confirmed that he continues to smoke 3 PPD. We both thought that possibly his fidgetiness is from nicotine withdrawal and urges. Will order nicotine patch. The requests that nicotine patches be ordered at the time of discharge as well which will be done (10) Hx of CAD (coronary artery disease) Conclusion/Plan: S/p PCI in 2011, Details not known Troponin's were flat. No change in management planned (since we do not have staff to do a stress test) He would need a pharmaceutical outpatient stress test, if he wants to pursue further treatment of his coronary artery disease from a more aggressive perspective (11) Borderline Diabetes Conclusion/Plan: A1c is 6.3%, indicating Borderline DM. He has not needed any supplemental coverage while here. We will stop [id number] glucose testing. We added Ensure because of poor p.o. intake. Qualifiers: Diabetes mellitus type: type 2 (12) Hx Hypertension Conclusion/Plan: Continuing B-clocker and lisinopril, now also on Lasix and starting Spironolactone. (13) Troponin level elevated Conclusion/Plan: Likely Type II [place], demand ischemia from A fib with rvr and chf in setting of cKD Continue to closely monitor and treat CHF and HR - Current Meds Current Meds: Current Medications Generic Name Dose Route Start Last Admin Trade Name Freq PRN Reason Stop Dose Admin Allopurinol 100 mg 09/04/22 09:00 09/07/22 08:11 Allopurinol 100 Mg Tablet PO 100 mg DAILY CASEY Administration Apixaban 2.5 mg 09/04/22 09:00 09/07/22 08:11 Apixaban 2.5 Mg Tablet PO 2.5 mg BID CASEY Administration Furosemide 40 mg 09/06/22 09:00 09/07/22 08:10 Furosemide 40 Mg Tablet PO 40 mg DAILY CASEY Administration Ipratropium [place] 0.5 mg 09/06/22 10:00 09/07/22 08:31 Ipratropium 0.2 Mg/Ml Neb INH 0.5 mg RTQID CASEY Administration Lisinopril 10 mg 09/06/22 21:00 09/06/22 20:37 Lisinopril 5 Mg Tablet PO Not Given HS CASEY Magnesium Oxide 400 mg 09/05/22 14:00 09/07/22 08:10 Magnesium Oxide 400 Mg Tablet PO 400 mg DAILYWM CASEY Administration Metoprolol Succinate 25 mg 09/06/22 09:00 09/07/22 08:10 Metoprolol Succinate 25 Mg Tablet PO 25 mg BID CASEY Administration Oxycodone HCl 5 mg 09/04/22 16:03 09/05/22 12:28 Oxycodone 10 Mg/0.5 Ml Syringe PO 5 mg Q4HR PRN Administration Shortness of Air/Wheezing Pantoprazole Sodium 40 mg 09/04/22 07:00 09/07/22 07:02 Pantoprazole 40 Mg Tablet PO 40 mg QDAC CASEY Administration Sodium Chloride 10 ml 09/04/22 01:00 09/07/22 01:00 Sodium Chloride Flush 0.9% 10 Ml Syringe IVP Not Given 0100,0900,1700 CASEY Sodium Chloride 10 ml 09/04/22 00:26 09/05/22 09:21 Sodium Chloride Flush 0.9% 10 Ml Syringe IVP 10 ml PRN PRN Administration NEEDED PER PROVIDER ORDERS - Lab Result Fish Bone Diagrams: 09/08/22 04:33 09/08/22 04:33 - Additional Planning My Orders: My Active Orders 09/06/22 09:00 Metoprolol Succinate [Toprol Xl] 25 mg PO BID 09/06/22 10:00 Ipratropium [Atrovent] 0.5 mg INH RTQID 09/06/22 21:00 lisinopriL [Zestril] 10 mg PO HS 09/06/22 21:11 Zinc Oxide 20% Oint [Zinc Oxide] 1 applic TOP PRN PRN 09/07/22 07:29 Miscellaenous Nursing Order [RC] QSHIFT 09/07/22 09:02 Nebulizer/MDI Tx. [RC] QID Resp Teach Nebulizer/MDI [RC] .ONCE Ipratropium/Albuterol [Duoneb] 3 ml INH Q4HR PRN 09/07/22 10:00 Potassium Chloride [Micro-K] 20 meq PO ONCE ONE Potassium Chloride/Water 10 mEq/100 mL q1h (Enter # of bags) Potassium Chlor 10 Meq/100 ml [Potassium Chloride] 10 meq in 100 ml IV Q1H Subjective - Subjective Patient Reports: Feeling Better Nursing Reports: Other (Very forgetful, tries to get up on his own despite multiple warnings for multiple days to call for help when he wants to go to the bathroom) Objective Vital Signs: Vital Signs - 24 hr 09/06/22 09/06/22 09/06/22 09:25 09:30 10:01 Temperature Heart Rate Heart Rate [ Activity] Heart Rate [ Brachial] Heart Rate [ 119 H 115 H 109 H Radial] Respiratory 22 Rate Blood Pressure [Activity] Blood Pressure 97/66 100/80 105/71 [Left Brachial artery] O2 Saturation If not protocol : Oxygen Flow, liters/minute 09/06/22 09/06/22 09/06/22 10:04 11:15 11:25 Temperature 36.6 C Heart Rate Heart Rate [ 100 Activity] Heart Rate [ Brachial] Heart Rate [ 103 H 114 H Radial] Respiratory 20 Rate Blood Pressure 95/49 L [Activity] Blood Pressure 113/74 109/88 H [Left Brachial artery] O2 Saturation 97 If not protocol 1 : Oxygen Flow, liters/minute 09/06/22 09/06/22 09/06/22 11:30 16:08 16:20 Temperature 36.5 C Heart Rate Heart Rate [ 100 Activity] Heart Rate [ Brachial] Heart Rate [ 130 H Radial] Respiratory 22 Rate Blood Pressure 95/49 L [Activity] Blood Pressure 114/38 L [Left Brachial artery] O2 Saturation 90 L 95 If not protocol 1 1 : Oxygen Flow, liters/minute 09/06/22 09/06/22 09/07/22 19:00 20:32 00:02 Temperature 37.1 C 36.6 C Heart Rate Heart Rate [ Activity] Heart Rate [ 111 H 89 Brachial] Heart Rate [ Radial] Respiratory 20 18 Rate Blood Pressure [Activity] Blood Pressure 106/76 108/66 [Left Brachial artery] O2 Saturation 93 96 If not protocol 1.5 1 1 : Oxygen Flow, liters/minute 09/07/22 09/07/22 09/07/22 04:56 07:16 08:30 Temperature 36.9 C 36.4 C L Heart Rate 102 H Heart Rate [ Activity] Heart Rate [ 86 97 Brachial] Heart Rate [ Radial] Respiratory 18 20 20 Rate Blood Pressure [Activity] Blood Pressure 129/79 102/65 [Left Brachial artery] O2 Saturation 99 93 If not protocol 1 2 2 : Oxygen Flow, liters/minute Oxygen O2 Source Nasal cannula Oxygen Flow Rate 3 I&O (Last 24 Hrs): Intake and Output Totals x24h 09/05/22 09/06/22 09/07/22 23:59 23:59 23:59 Intake Total 2283.5 1340 712 Output Total 5075 1170 101 Balance -2791.5 170 611 General: Alert, Oriented x3 HEENT: Mucous membr. moist/pink, Other (wearing O2 n.c.) Neck: Supple, No JVD (in vertical position) Neuro: Alert, Other ((has foot drop, per PT)) Cardiovascular: No murmurs, Other (irreg irreg) Respiratory: Rhonchi (Poor air mvm) Abdomen: Soft, No tenderness Extremities: Other (4+ edema to mid thighs) - Results Results: Laboratory Results WBC 5.4 x10^3/uL (4.8-10.8) 09/07/22 05:33 RBC 3.64 10^6/uL (4.70-6.10) L 09/07/22 05:33 Hgb 11.2 g/dL (14.0-18.0) L 09/07/22 05:33 Hct 35.7 % (42.0-52.0) L 09/07/22 05:33 MCV 98.1 fL (80.0-94.0) H 09/07/22 05:33 MCH 30.8 pg (27.0-31.0) 09/07/22 05:33 MCHC 31.4 g/dL (32.0-36.0) L 09/07/22 05:33 RDW 14.7 % (12.0-15.0) 09/07/22 05:33 Plt Count 162 10^3/uL (130-450) 09/07/22 05:33 MPV 11.5 fL (7.4-11.4) H 09/07/22 05:33 Neut # (Auto) 3.8 10^3/uL (1.5-6.6) 09/07/22 05:33 Lymph # (Auto) 0.7 10^3/uL (1.5-3.5) L 09/07/22 05:33 [place] # (Auto) 0.8 10^3/uL (0.0-1.0) 09/07/22 05:33 Eos # (Auto) 0.1 10^3/uL (0.0-0.7) 09/07/22 05:33 Baso # (Auto) 0.0 10^3/uL (0.0-0.1) 09/07/22 05:33 Absolute Nucleated RBC 0.00 x10^3/uL 09/07/22 05:33 Nucleated RBC % 0.0 /100WBC 09/07/22 05:33 Sodium 137 mmol/L (135-145) 09/07/22 05:33 Potassium 2.9 mmol/L (3.5-5.0) L 09/07/22 05:33 Chloride 97 mmol/L (101-111) L 09/07/22 05:33 Carbon Dioxide 32 mmol/L (21-32) 09/07/22 05:33 Anion Gap 8.0 (6-13) 09/07/22 05:33 BUN 52 mg/dL (6-20) H 09/07/22 05:33 Creatinine 2.2 mg/dL (0.6-1.2) H 09/07/22 05:33 Estimated GFR (MDRD) 29 (>89) L 09/07/22 05:33 Glucose 141 mg/dL (70-100) H 09/07/22 05:33 POC Whole Bld Glucose 182 mg/dL (70 - 100) H 09/06/22 11:15 Estimat Average Glucose 134 mg/dL (70-100) H 09/04/22 05:17 Hemoglobin A1c % 6.3 % (4.27-6.07) H 09/04/22 05:17 Lactic Acid 1.5 mmol/L (0.5-2.2) 09/03/22 21:56 Calcium 9.2 mg/dL (8.5-10.3) 09/07/22 05:33 Phosphorus 4.1 mg/dL (2.5-4.6) 09/04/22 05:17 Magnesium 1.7 mg/dL (1.7-2.8) 09/07/22 05:33 Total Bilirubin 1.8 mg/dL (0.2-1.0) H 09/04/22 05:17 AST 44 IU/L (10-42) H 09/04/22 05:17 ALT 27 IU/L (10-60) 09/04/22 05:17 Alkaline Phosphatase 262 IU/L (42-121) H 09/04/22 05:17 Troponin I High Sens 87.8 ng/L (2.3-19.7) H* 09/04/22 05:17 B-Natriuretic Peptide 3543 pg/mL (5-100) H 09/03/22 21:56 Total Protein 6.5 g/dL (6.7-8.2) L 09/04/22 05:17 Albumin 3.3 g/dL (3.2-5.5) 09/04/22 05:17 Globulin 3.2 g/dL (2.1-4.2) 09/04/22 05:17 Albumin/Globulin Ratio 1.0 (1.0-2.2) 09/04/22 05:17 Triglycerides 48 mg/dL (-149) 09/04/22 01:00 Cholesterol 84 mg/dL (-199) 09/04/22 01:00 LDL Cholesterol, Calc 44 mg/dL (-129) 09/04/22 01:00 VLDL Cholesterol 10 mg/dL 09/04/22 01:00 HDL Cholesterol 30 mg/dL (60-) L 09/04/22 01:00 LDL/HDL Ratio 1.5 (<3.6) 09/04/22 01:00 Cholesterol/HDL Ratio 2.8 (<5.0) 09/04/22 01:00 Lipase 34 U/L (22-51) 09/03/22 21:56 TSH < 0.08 uIU/mL (0.34-5.60) L 09/04/22 05:17 SARS-CoV-2 (PCR) NOT DETECTED 09/03/22 21:53 - Procedures Procedures: Procedures INTRODUCTION OF ANTI-INFLAM INTO PERIPH VEIN, PERC APPROACH (03/28/22) Sepsis Event Note (H) - Evaluation Current Stage of Sepsis: Ruled out
[2022-09-07] MEDS ORDERED: POTASSIUM CHLOR 10 MEQ/100 ML 10 MEQ/100 ML BAG IV SCH (10:00)
[2022-09-07] MEDS ORDERED: POTASSIUM CHLORIDE 10 MEQ CAPSULE PO ONE (10:00)
[2022-09-07] MEDS: NICOTINE 21 MG PATCH TOP SCH (13:13)
--- NOTE | 2022-09-07 13:28 | CT Report ---
PROCEDURE: CT brain without contrast INDICATIONS: Confusion, poor short term memory TECHNIQUE: Noncontrast 4.5 mm thick angled axial sections acquired from the foramen magnum to the vertex. For r adiation dose reduction, the following was used: automated exposure control, adjustment of mA and/or kV according to patient size. COMPARISON: 12/14/2016 FINDINGS: Image quality: Excellent. CSF spaces: Basal cisterns are patent. No extra-axial fluid collections. Ventricles are normal in size and shape. Brain: No midline shift. No intracranial masses or hemorrhage. Goldberg-white matter interface is norm al. Moderate atrophy and multifocal white matter chronic ischemic change noted. Atherosclerotic vasc ular calcification noted in the cavernous segments of both internal carotid arteries as well as the i ntradural vertebral arteries. Skull and face: Calvarium and visualized facial bones are intact, without suspicious lesions. Sinuses: Visualized sinuses and mastoids are clear. IMPRESSION: Atrophy and chronic ischemic change without acute hemorrhage or mass effect Reviewed by: Chacorta Caruso MD on 09/07/2022 12:27 PM DARRIAN Approved by: Chacorta Caruso MD on 09/07/2022 12:27 PM AKDT Station ID: [id number]
[2022-09-07] MEDS: IPRATROPIUM/ALBUTEROL 3 ML NEB INH SCH ×2 (15:28→18:15)
[2022-09-07] MEDS: lisinopriL 5 MG TABLET PO SCH (20:46)
[2022-09-08] MEDS: SODIUM CHLORIDE FLUSH 0.9% 10 ML SYRINGE IVP SCH ×3 (01:39→16:39)
[2022-09-08 05:17] LABS: BASOPHILS % (AUTO) 0.6 %; EOSINOPHILS # (AUTO) 0.2 10^3/uL (0.0-0.7); EOSINOPHILS % (AUTO) 3.1 %; HCT - HEMATOCRIT 35.9 % (42.0-52.0); HGB - HEMOGLOBIN 11.1 g/dL (14.0-18.0); LYMPHOCYTES # (AUTO) 1.1 10^3/uL (1.5-3.5); LYMPHOCYTES % (AUTO) 20.3 %; MEAN CORPUSCULAR HEMOGLOBIN 30.5 pg (27.0-31.0); MEAN CORPUSCULAR HGB CONC 30.9 g/dL (32.0-36.0); MEAN CORPUSCULAR VOLUME 98.6 fL (80.0-94.0); MEAN PLATELET VOLUME 11.3 fL (7.4-11.4); MONOCYTES # (AUTO) 0.7 10^3/uL (0.0-1.0); MONOCYTES % (AUTO) 13.4 %; NEUTROPHILS # (AUTO) 3.3 10^3/uL (1.5-6.6); NEUTROPHILS % (AUTO) 62.2 %; PLT - PLATELET COUNT 177 10^3/uL (130-450); RED BLOOD COUNT 3.64 10^6/uL (4.70-6.10); RED CELL DISTRIBUTION WIDTH 14.6 % (12.0-15.0); WHITE BLOOD COUNT 5.2 x10^3/uL (4.8-10.8)
[2022-09-08 05:27] LABS: CALCIUM 9.3 mg/dL (8.5-10.3); CREATININE 2.2 mg/dL (0.6-1.2)
[2022-09-08] MEDS: PANTOPRAZOLE 40 MG TABLET PO SCH (06:30)
[2022-09-08] MEDS: IPRATROPIUM/ALBUTEROL 3 ML NEB INH SCH ×4 (06:51→21:07)
[2022-09-08] MEDS: MAGNESIUM OXIDE 400 MG TABLET PO SCH (08:35)
[2022-09-08] MEDS: allopurinoL 100 MG TABLET PO SCH (08:36)
[2022-09-08] MEDS: APIXABAN 2.5 MG TABLET PO SCH ×2 (08:36→20:58)
[2022-09-08] MEDS: METOPROLOL SUCCINATE 25 MG TABLET PO SCH ×2 (08:36→20:57)
[2022-09-08] MEDS: SPIRONOLACTONE 25 MG TABLET PO SCH (08:37)
[2022-09-08] MEDS: POTASSIUM CHLORIDE 10 MEQ CAPSULE PO SCH ×2 (08:37→11:50)
[2022-09-08] MEDS: NICOTINE 21 MG PATCH TOP SCH (08:37)
--- NOTE | 2022-09-08 10:57 | PROVIDER PROGRESS NOTE ---
Assessment/Plan - Problem List (1) Acute exacerbation of CHF (congestive heart failure) Qualifiers: Heart failure type: systolic Qualified Code(s): I50.23 - Acute on chronic systolic (congestive) heart failure Assessment/Plan: Echocardiogram was done and shows LVEF of <20% and 4-chamber dilatation. He has never had an Echo done here before to have a comparison, but based on his medications, this is new systolic heart failure. Continue with diuresis, Lasix was now once daily orally. Continue to follow daily weight, I's and O's and daily BMP. Watching his elevated BUN/creat ratio, signifying that we are drying out his intravascular space, but he still has 4+ leg edema Continue beta-blockers and will need to increase the dose further today, for better rate control. Continue with his EH inhibitor, decreasing the dose, as we increase the B- clare for rate control, also watching the rising creat. If needed, he could be on Hydralazine + Nitrates. Will start Spironolactone tomorrow Because he has pulled off his telemetry and pulled out his IV 4 times since admission, I discontinued telemetry and IV orders, as he is on po meds and we can follow HR during VS checks. He will likely need a stress test in the outpatient setting, since we have no stress testing service available here whatsoever currently. This is, if he feels that it is something he wants to pursue at the age of 87. (2) Atrial fibrillation with RVR Conclusion/Plan: He continues to have high heart rates >100 only intermittently, now mostly with standing and walking. Continue B-clare and will increase the dose once again, therefore will further decrease Lisinopril dose somewhat. He was on Cardizem at home which has not been started here and we will try not to resume it, if possible, because of the (new) systolic heart failure Continue on Eliquis at 2.5 bid for his anticoagulant for stroke prevention (3) COPD with exacerbation In review of the chart and after talking to the by phone yesterday, and he does have known COPD, is currently not on home oxygen, but may have had it in the remote past. He is on inhalers but continues to smoke. His exam is consistent with COPD with exacerbation. Will change his as needed albuterol to DuoNeb scheduled and additional prn DuoNeb. Will continue with supplemental oxygen keeping saturations over 88%. He will likely need home O2 and will plan for him to have an oximetry walk test on the day of discharge (hopefully tomorrow). (4) Leg edema Conclusion/Plan: He still has 4+ pitting edema to his thighs. He states he "cannot elevate his legs", unclear why, since he walks. The Echo result is back and it shows that he has an RV dilated, cor pulmonale and mild pulm hypertension with PA pressure 54 mmHg Continue gerson stocking and gentle diuresis At the last admission in 04/10, he was on Eliquis and he had leg doppler due to swelling, and DVt was ruled out. Will not repeat a leg Doppler. (5) Hypokalemia Related to IV diuresis. Will replace potassium gently, given the worsening creatinine. Follow BMP daily (6) CKD (chronic kidney disease) Conclusion/Plan: His creatinine was 1.7 before admission and has increased with IV Lasix. His Lasix is now po for more gentle diuresis. Avoid nephrotoxins. Follow BMP daily (7) Acute delirium He has pulled off his telemetry and pulled out his IV 4 times since admission, n eeds to be reminded to call for assistance standing up. I reviewed the chart and this type of confusion while hospitalized was also seen at the last admission. The had told the last admission's Hospitalist that the patient has mild dementia I spoke to his yesterday by phone, and she confirmed that he has poor short-term memory, excellent long-term memory. The said she had a suspicion that maybe he is fidgety because of nicotine withdrawal, since she reports that he still smokes 3 packs/day. We ordered nicotine patch. A head CT was done and did showed atrophy. (8) BPH (benign prostatic hyperplasia) Conclusion/Plan: We have restarted his meds He may need to stand up to urinate (9) Tobacco abuse I spoke to his yesterday by phone, and she confirmed that he continues to smoke 3 PPD. We both thought that possibly his fidgetiness is from nicotine withdrawal and urges. We ordered nicotine patch. The requested that nicotine patches be ordered at the time of discharge as well, which will be done (10) Hx of CAD (coronary artery disease) Conclusion/Plan: S/p PCI in 2011, details not known Troponin's were flat. No change in management planned (since we do not have staff to do a stress test) He would need a pharmaceutical outpatient stress test, if he wants to pursue further treatment of his coronary artery disease from a more aggressive perspective (11) Borderline Diabetes Conclusion/Plan: A1c is 6.3%, indicating Borderline DM. He has not needed any supplemental coverage while here. We will stop [id number] glucose testing. We added Ensure because of poor p.o. intake. Qualifiers: Diabetes mellitus type: type 2 (12) Hx Hypertension Conclusion/Plan: Continuing B-clocker and lisinopril, now also on Lasix and starting Spironolactone. 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, demand ischemia from A fib with rvr and chf in setting of cKD Continue to closely monitor and treat CHF and HR - Current Meds Current Meds: Current Medications Generic Name Dose Route Start Last Admin Trade Name Freq PRN Reason Stop Dose Admin Albuterol/Ipratropium 3 ml 09/07/22 09:02 09/07/22 11:35 Ipratropium/Albuterol 3 Ml Neb INH 3 ml Q4HR PRN Administration Wheezing Albuterol/Ipratropium 3 ml 09/07/22 15:00 09/08/22 06:51 Ipratropium/Albuterol 3 Ml Neb INH 3 ml RTQID CASEY Administration Allopurinol 100 mg 09/04/22 09:00 09/08/22 08:36 Allopurinol 100 Mg Tablet PO 100 mg DAILY CASEY Administration Apixaban 2.5 mg 09/04/22 09:00 09/08/22 08:36 Apixaban 2.5 Mg Tablet PO 2.5 mg BID CASEY Administration Magnesium Oxide 400 mg 09/05/22 14:00 09/08/22 08:35 Magnesium Oxide 400 Mg Tablet PO 400 mg DAILYWM CASEY Administration Metoprolol Succinate 37.5 mg 09/08/22 09:00 09/08/22 08:36 Metoprolol Succinate 25 Mg Tablet PO 37.5 mg BID CASEY Administration Nicotine 1 patch 09/07/22 12:00 09/08/22 08:37 Nicotine 21 Mg Patch TOP 1 patch DAILY CASEY Administration Oxycodone HCl 5 mg 09/04/22 16:03 09/05/22 12:28 Oxycodone 10 Mg/0.5 Ml Syringe PO 5 mg Q4HR PRN Administration Shortness of Air/Wheezing Pantoprazole Sodium 40 mg 09/04/22 07:00 09/08/22 06:30 Pantoprazole 40 Mg Tablet PO 40 mg QDAC CASEY Administration Potassium Chloride 20 meq 09/08/22 09:00 09/08/22 08:37 Potassium Chloride 10 Meq Capsule PO 20 meq 0900,1200 CASEY Administration Sodium Chloride 10 ml 09/04/22 01:00 09/08/22 08:37 Sodium Chloride Flush 0.9% 10 Ml Syringe IVP Not Given 0100,0900,1700 CASEY Sodium Chloride 10 ml 09/04/22 00:26 09/05/22 09:21 Sodium Chloride Flush 0.9% 10 Ml Syringe IVP 10 ml PRN PRN Administration NEEDED PER PROVIDER ORDERS Spironolactone 25 mg 09/08/22 09:00 09/08/22 08:37 Spironolactone 25 Mg Tablet PO 25 mg DAILY CASEY Administration - Lab Result Fish Bone Diagrams: 09/09/22 05:13 09/09/22 05:13 - Additional Planning My Orders: My Active Orders 09/07/22 11:37 IV DC [IV Discontinuation] [RC] .ONCE Telemetry-Discontinue [RC] .ONCE 09/07/22 12:00 Nicotine 21 mg Patch [Nicoderm] 1 patch TOP DAILY 09/07/22 15:00 Ipratropium/Albuterol [Duoneb] 3 ml INH RTQID 09/08/22 09:00 Metoprolol Succinate [Toprol Xl] 37.5 mg PO BID Potassium Chloride [Micro-K] 20 meq PO 0900,1200 Spironolactone [Aldactone] 25 mg PO DAILY 09/08/22 21:00 lisinopriL [Zestril] 5 mg PO HS Subjective - Subjective Patient Reports: Feeling Better, Cough Nursing Reports: Other (More alert, speaking more comfortably, is much less confused today) Objective Vital Signs: Vital Signs - 24 hr 09/07/22 09/07/22 09/07/22 11:07 11:35 15:30 Temperature 36.6 C Heart Rate 91 101 H Heart Rate [ Apical] Heart Rate [ 101 H Brachial] Heart Rate [ Radial] Respiratory 20 18 20 Rate Blood Pressure 111/83 H [Left Brachial artery] Blood Pressure [Right Brachial artery] O2 Saturation 100 If not protocol 2 2 2 : Oxygen Flow, liters/minute 09/07/22 09/07/22 09/07/22 15:54 16:17 18:16 Temperature 37.0 C Heart Rate 56 L Heart Rate [ Apical] Heart Rate [ 49 L Brachial] Heart Rate [ 57 L Radial] Respiratory 22 16 Rate Blood Pressure 101/73 [Left Brachial artery] Blood Pressure [Right Brachial artery] O2 Saturation 97 If not protocol 1 1 : Oxygen Flow, liters/minute 09/07/22 09/07/22 09/07/22 19:28 20:44 23:26 Temperature 36.8 C 36.8 C Heart Rate Heart Rate [ Apical] Heart Rate [ 73 112 H Brachial] Heart Rate [ Radial] Respiratory 20 20 Rate Blood Pressure 109/72 [Left Brachial artery] Blood Pressure 100/64 [Right Brachial artery] O2 Saturation 95 93 If not protocol 1 1 1 : Oxygen Flow, liters/minute 09/08/22 09/08/22 09/08/22 01:00 04:46 06:52 Temperature 36.5 C 36.5 C Heart Rate 80 Heart Rate [ 105 H Apical] Heart Rate [ 103 H Brachial] Heart Rate [ Radial] Respiratory 22 20 16 Rate Blood Pressure [Left Brachial artery] Blood Pressure 96/62 106/61 [Right Brachial artery] O2 Saturation 96 If not protocol 1 1 1 : Oxygen Flow, liters/minute 09/08/22 07:28 Temperature 36.4 C L Heart Rate Heart Rate [ Apical] Heart Rate [ 105 H Brachial] Heart Rate [ Radial] Respiratory 20 Rate Blood Pressure [Left Brachial artery] Blood Pressure 107/65 [Right Brachial artery] O2 Saturation 95 If not protocol 1 : Oxygen Flow, liters/minute Oxygen O2 Source Nasal cannula Oxygen Flow Rate 3 I&O (Last 24 Hrs): Intake and Output Totals x24h 09/06/22 09/07/22 09/08/22 23:59 23:59 23:59 Intake Total 1340 2442 340 Output Total 1170 101 Balance 170 2341 340 General: Alert, Oriented x3, Other (Cachectic, frequent dry cough) HEENT: Mucous membr. moist/pink Neck: Supple, No JVD (in vertical position) Neuro: Alert, Other ((has foot drop bilat, per PT)) Cardiovascular: No murmurs, Other (irreg irreg) Respiratory: Rhonchi (poor air mvm, no further wheezing) Abdomen: Soft, No tenderness Extremities: Other (3+ edema to mid-thighs, shins are less tense, wearing GERSON hose) - Results Results: Laboratory Results WBC 5.2 x10^3/uL (4.8-10.8) 09/08/22 04:33 RBC 3.64 10^6/uL (4.70-6.10) L 09/08/22 04:33 Hgb 11.1 g/dL (14.0-18.0) L 09/08/22 04:33 Hct 35.9 % (42.0-52.0) L 09/08/22 04:33 MCV 98.6 fL (80.0-94.0) H 09/08/22 04:33 MCH 30.5 pg (27.0-31.0) 09/08/22 04:33 MCHC 30.9 g/dL (32.0-36.0) L 09/08/22 04:33 RDW 14.6 % (12.0-15.0) 09/08/22 04:33 Plt Count 177 10^3/uL (130-450) 09/08/22 04:33 MPV 11.3 fL (7.4-11.4) 09/08/22 04:33 Neut # (Auto) 3.3 10^3/uL (1.5-6.6) 09/08/22 04:33 Lymph # (Auto) 1.1 10^3/uL (1.5-3.5) L 09/08/22 04:33 Haines # (Auto) 0.7 10^3/uL (0.0-1.0) 09/08/22 04:33 Eos # (Auto) 0.2 10^3/uL (0.0-0.7) 09/08/22 04:33 Baso # (Auto) 0.0 10^3/uL (0.0-0.1) 09/08/22 04:33 Absolute Nucleated RBC 0.00 x10^3/uL 09/08/22 04:33 Nucleated RBC % 0.0 /100WBC 09/08/22 04:33 Sodium 138 mmol/L (135-145) 09/08/22 04:33 Potassium 3.0 mmol/L (3.5-5.0) L 09/08/22 04:33 Chloride 92 mmol/L (101-111) L 09/08/22 04:33 Carbon Dioxide 33 mmol/L (21-32) H 09/08/22 04:33 Anion Gap 13.0 (6-13) 09/08/22 04:33 BUN 61 mg/dL (6-20) H 09/08/22 04:33 Creatinine 2.2 mg/dL (0.6-1.2) H 09/08/22 04:33 Estimated GFR (MDRD) 29 (>89) L 09/08/22 04:33 Glucose 148 mg/dL (70-100) H 09/08/22 04:33 POC Whole Bld Glucose 182 mg/dL (70 - 100) H 09/06/22 11:15 Estimat Average Glucose 134 mg/dL (70-100) H 09/04/22 05:17 Hemoglobin A1c % 6.3 % (4.27-6.07) H 09/04/22 05:17 Lactic Acid 1.5 mmol/L (0.5-2.2) 09/03/22 21:56 Calcium 9.3 mg/dL (8.5-10.3) 09/08/22 04:33 Phosphorus 4.1 mg/dL (2.5-4.6) 09/04/22 05:17 Magnesium 1.7 mg/dL (1.7-2.8) 09/07/22 05:33 Total Bilirubin 1.8 mg/dL (0.2-1.0) H 09/04/22 05:17 AST 44 IU/L (10-42) H 09/04/22 05:17 ALT 27 IU/L (10-60) 09/04/22 05:17 Alkaline Phosphatase 262 IU/L (42-121) H 09/04/22 05:17 Troponin I High Sens 87.8 ng/L (2.3-19.7) H* 09/04/22 05:17 B-Natriuretic Peptide 3543 pg/mL (5-100) H 09/03/22 21:56 Total Protein 6.5 g/dL (6.7-8.2) L 09/04/22 05:17 Albumin 3.3 g/dL (3.2-5.5) 09/04/22 05:17 Globulin 3.2 g/dL (2.1-4.2) 09/04/22 05:17 Albumin/Globulin Ratio 1.0 (1.0-2.2) 09/04/22 05:17 Triglycerides 48 mg/dL (-149) 09/04/22 01:00 Cholesterol 84 mg/dL (-199) 09/04/22 01:00 LDL Cholesterol, Calc 44 mg/dL (-129) 09/04/22 01:00 VLDL Cholesterol 10 mg/dL 09/04/22 01:00 HDL Cholesterol 30 mg/dL (60-) L 09/04/22 01:00 LDL/HDL Ratio 1.5 (<3.6) 09/04/22 01:00 Cholesterol/HDL Ratio 2.8 (<5.0) 09/04/22 01:00 Lipase 34 U/L (22-51) 09/03/22 21:56 TSH < 0.08 uIU/mL (0.34-5.60) L 09/04/22 05:17 SARS-CoV-2 (PCR) NOT DETECTED 09/03/22 21:53 - Procedures Procedures: Procedures INTRODUCTION OF ANTI-INFLAM INTO PERIPH VEIN, PERC APPROACH (03/28/22) Sepsis Event Note (H) - Evaluation Current Stage of Sepsis: Ruled out
[2022-09-08] MEDS ORDERED: lisinopriL 5 MG TABLET PO SCH (21:00)
[2022-09-09] MEDS: SODIUM CHLORIDE FLUSH 0.9% 10 ML SYRINGE IVP SCH ×2 (01:25→08:38)
[2022-09-09 05:35] LABS: BASOPHILS % (AUTO) 0.5 %; EOSINOPHILS # (AUTO) 0.1 10^3/uL (0.0-0.7); EOSINOPHILS % (AUTO) 2.2 %; HCT - HEMATOCRIT 35.4 % (42.0-52.0); LYMPHOCYTES # (AUTO) 0.9 10^3/uL (1.5-3.5); LYMPHOCYTES % (AUTO) 16.8 %; MEAN CORPUSCULAR HGB CONC 31.1 g/dL (32.0-36.0); MEAN CORPUSCULAR VOLUME 99.7 fL (80.0-94.0); MEAN PLATELET VOLUME 11.6 fL (7.4-11.4); MONOCYTES # (AUTO) 0.7 10^3/uL (0.0-1.0); MONOCYTES % (AUTO) 13.2 %; NEUTROPHILS # (AUTO) 3.7 10^3/uL (1.5-6.6); NEUTROPHILS % (AUTO) 66.9 %; PLT - PLATELET COUNT 184 10^3/uL (130-450); RED BLOOD COUNT 3.55 10^6/uL (4.70-6.10); RED CELL DISTRIBUTION WIDTH 14.7 % (12.0-15.0); WHITE BLOOD COUNT 5.5 x10^3/uL (4.8-10.8)
[2022-09-09 05:43] LABS: CALCIUM 9.1 mg/dL (8.5-10.3); POTASSIUM 3.6 mmol/L (3.5-5.0)
[2022-09-09] MEDS: PANTOPRAZOLE 40 MG TABLET PO SCH (06:22)
[2022-09-09] MEDS: IPRATROPIUM/ALBUTEROL 3 ML NEB INH SCH ×2 (07:41→10:38)
[2022-09-09 08:08] VITALS: BP 109/78
[2022-09-09] MEDS: allopurinoL 100 MG TABLET PO SCH (08:37)
[2022-09-09] MEDS: METOPROLOL SUCCINATE 25 MG TABLET PO SCH (08:37)
[2022-09-09] MEDS: POTASSIUM CHLORIDE 10 MEQ CAPSULE PO SCH ×2 (08:37→13:08)
[2022-09-09] MEDS: NICOTINE 21 MG PATCH TOP SCH (08:37)
[2022-09-09] MEDS: SPIRONOLACTONE 25 MG TABLET PO SCH (08:37)
[2022-09-09] MEDS: APIXABAN 2.5 MG TABLET PO SCH (08:38)
[2022-09-09] MEDS: MAGNESIUM OXIDE 400 MG TABLET PO SCH (08:38)
[2022-09-09] MEDS ORDERED: MULTIVITAMIN W/MINERALS TABLET PO SCH (09:00)
--- NOTE | 2022-09-09 11:35 | Discharge Plan ---
Discharge Plan Problem Reviewed?: Yes Disposition: Home Health Service Condition: Fair Prescriptions: Spironolactone [Aldactone] 25 mg PO DAILY #30 tab Furosemide [Lasix] 40 mg PO UD #15 tablet Nicotine 21 mg Patch [Nicoderm] 1 patch TOP DAILY #10 patch Multivitamin W/Minerals [Theragran M] 1 tab PO DAILYWM #30 tab lisinopriL [Zestril] 5 mg PO HS #30 tab Diet: Regular Activity Restrictions: Activity as Tolerated Shower Restrictions: No Driving Restrictions: Yes Assistance Devices: Walker Weight Bearing: Full Weight Health Concerns: You were hospitalized because of having severe shortness of breath from fluid in your chest, worsening of your emphysema/COPD and your heart rate was too rapid to be safe. Medications were adjusted. You needed supplemental oxygen while in the hospital. We tested you for needing home oxygen and you do need oxygen. It will be ordered with a respiratory company that we will deliver oxygen to your home. The concentrator should be set at 3 L/min of O2 at rest, and increase it to 4 L/min with any activity. DO NOT SMOKE AROUND THE OXYGEN, in fact you should stop smoking because it has damaged your lungs and caused emphysema. Please follow the new list of medications, there have been some changes (like the Furosemid is just every Mon, Wed, Fri now because there is now a second water pill). Several new prescriptions have been ordered and electronically sent to your [facility] pharmacy in [place]. When you are sitting in a chair, please elevate your feet on a pouf, or at least on several pillows, to help continue to drain water out of your legs. Please see your primary care provider in the next 1 to 2 weeks for hospital follow-up visit. To continue strengthening at home, a Home Health agency will provide you with in-house PT, OT, bath aide and check on your vital signs, oxygen level and if you need any other assistance, there will be a social security specialist coming out to your house to check with you and your . Plan of Treatment: As above. Care Goals: Improvement in symptoms and stabilization are the goals. Assessment: Patient understands and is agreeable with the plan. Additional Instructions or Follow Up instructions: If you have new or worsening symptoms, call your primary care provider for advice or come to the ER. No Smoking: If you smoke, Please STOP! Call for help. Follow-up with: Agnieszka Owens PA-C [Primary Care Provider] -
--- NOTE | 2022-09-09 11:46 | DISCHARGE SUMMARY ---
Discharge Summary Admit Date: 09/04/22 Discharge Date: 09/09/22 Discharging Provider: Dominga Lugo MD Primary Care Provider: Agnieszka Owens NP Code Status: Do Not Attempt Resuscitation Condition at Discharge: Fair Discharge Disposition: Home Health Service - [facility] History of Present Illness: This is an 86-year-old white male with a history of 2 pack/day smoking since the age of 16, COPD previously on home oxygen, sleep apnea on a CPAP machine (possi arpita a trilogy machine), CAD with CO and coronary stenting in 2011, chronic atrial fib on Coumadin, PVD with renal artery stent of the right done 2008 and bilateral iliac stents, and 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 He was diagnosed with diabetes mellitus about 5 years ago and was hospitalized here for altered mental status caused by HONK with glucose greater than 1000 in November 2016. He also has prostate disease, gout, hypertension, hyperlipidemia and status post cholecystectomy. Patient comes in with complaints of worsening sob and worsening leg edema. In the ED he was found to be in A. fib with RVR with rates in the 120s. He received diltiazem IV once and heart rate improved to 105-110. He is COVID- negative His BNP is 3500 with first troponin is 69 and CXR shows CHF. He is in moderate distress. He lives with his served in the [employer] in his younger days, has 2 sons and many great grandkids, he is pleasant, expressed to be DNR Patient is SOB while talking. He also has 3-4+ leg edema and has b/l crackles as well as diffuclty lying down flat, at this time his main issues are from CHF and his COPD seems to be in control. Unfortunately not CPAP/Bipap available a this time, and patient cannot be transferred to higher level of care hospital due to logistics (no open beds), also his creatinine is 1.8. He is having no chest pain and awaiting further labs, repeat troponin. Code status: DNR. - HOSPITAL COURSE Hospital Course: (1) Acute exacerbation of CHF (congestive heart failure) Qualified Code(s): I50.23 - Acute on chronic systolic (congestive) heart failure Echocardiogram was done and shows LVEF of <20% and 4-chamber dilatation. He has never had an Echo done here before to have a comparison, but based on his medications, this is new systolic heart failure. We treated him with IV diuretics then changed to oral. Watching his BUN/creat ratio which arik, signifying that we were drying out his intravascular space, but he still had 4+ leg edema. Leg elevation was ordered which he did begrudgingly. We continued his beta-blockers and increased the dose for better rate control. We continue with his EH inhibitor, but decreased the dose, to allow the increase in B-clare dose. We started him on Spironolactone. He was discharged on these new meds and new doses. He would need a pharmaceutical outpatient stress test, if he wants to pursue further treatment of his coronary artery disease from a more aggressive perspective, but we have no stress testing service available here whatsoever currently. (2) Atrial fibrillation with RVR He had high heart rates mostly with standing and walking. His B-clare dose was increased.He was on Cardizem at home which we did not resume here, because of the (new) systolic heart failure. He was continued on his Eliquis at 2.5 bid as his anticoagulant for stroke prevention (3) COPD with exacerbation He does have known COPD and uses inhalers but continues to smoke. His exam was more consistent with COPD exacerbation than CHF. He was put on DuoNeb scheduled and additional prn DuoNeb. He was tested for needing a new home oxygen order: The patient was hypoxic at room air on rest, with O2 sats of 82%. On 3 L/min oxygen at rest, his O2 was 91%. With exertion on 3 L/min oxygen, his O2 sats were 86%. And on 4 L/min with exertion, his O2 was 92%. I am ordering home oxygen set at 3 L/min at rest and 4 L/min with exertion to treat his COPD. I am also ordering a nebulizer machine to administer bronchodilators to treat COPD. Nebulizer meds were ordered for home. He was advised to stop smoking cigarettes especially with oxygen in the house. Nicotine patches were ordered for home. (4) Leg edema He had prsistent 4+ pitting edema to his thighs and said he "cannot elevate his legs". The Echo result showed that he has an dilated RV, therefore has Cor Pulmonale and mild pulm hypertension with PA pressure 54 mmHg. We ordered GERSON júnioring andleg elevation. At the last admission in 03/2022, he was on Eliquis and he had leg doppler due to swelling, and DVt was ruled out. We did not repeat a leg Doppler test. (5) Hypokalemia Related to IV diuresis. Replaced. (6) CKD (chronic kidney disease) His creatinine was 1.7 before admission, and was 1.8 at admission and increased with IV Lasix. Lasix was po for more gentle diuresis. His creat was 2.0 at discharge. (7) Acute delirium He would pull off his telemetry and pulled out his IV 4 times since admission, needed to be reminded to call for assistance when standing up. The had told the last admission's provider that the patient has mild dementia. She confirmed that he has poor short-term memory, but good long-term memory. A head CT was done and did showed atrophy. The had a suspicion that maybe he was fidgety because of nicotine withdrawal, since she reported that he still smokes 3 packs/day. A nicotine patch was ordered. (8) BPH (benign prostatic hyperplasia) As per Hx. He needed to stand up to urinate. (9) Tobacco abuse He continues to smoke 2-3 PPD. We ordered nicotine patch and it was ordered at the time of discharge. He was counseled about the dangers of using home oxygen near a lit cigarette. (10) Hx of CAD (coronary artery disease) S/p PCI in 2011, details not known. Troponin's were flat. He would need a pharmaceutical outpatient stress test, if he wants to pursue further treatment of his coronary artery disease from a more aggressive perspective (11) Borderline Diabetes A1c was 6.3%, indicating Borderline DM. (12) Hx Hypertension Continued his B-clocker and lisinopril, now also on Lasix and Spironolactone. (13) Troponin level elevated Likely Type II CO, demand ischemia from A fib with rvr and chf in setting of cKD - ALLERGIES Allergies/Adverse Reactions: Allergies Allergy/AdvReac Type Severity Reaction Status Date / Time ibuprofen Allergy Hives Verified 09/03/22 21:37 - MEDICATIONS Home Medications: Ambulatory Orders Medication Instructions Recorded Confirmed allopurinoL [Allopurinol] 300 mg PO DAILY 12/14/16 09/03/22 Apixaban [Eliquis] 2.5 mg PO BID 03/29/22 09/03/22 Metoprolol Succinate [Toprol Xl] 25 mg PO BID #60 tablet 03/31/22 09/03/22 Albuterol 2.5 mg INH Q4H PRN 09/03/22 09/03/22 Rosuvastatin Calcium [Crestor] 20 mg PO 09/05/22 Tiotropium Greene [Spiriva 1 puffs INH DAILY 09/05/22 09/05/22 Handihaler] diltiaZEM CD [Cardizem Cd] 120 mg PO ONCE 09/05/22 09/05/22 Furosemide [Lasix] 40 mg PO UD #15 tablet 09/09/22 Ipratropium/Albuterol [Duoneb] 3 ml INH QID #120 ea 09/09/22 Montelukast [Singulair] 10 mg PO QPM #30 tablet 09/09/22 Multivitamin W/Minerals [Theragran 1 tab PO DAILYWM #30 tab 09/09/22 M] Nicotine 21 mg Patch [Nicoderm] 1 patch TOP DAILY #10 patch 09/09/22 Spironolactone [Aldactone] 25 mg PO DAILY #30 tab 09/09/22 lisinopriL [Zestril] 5 mg PO HS #30 tab 09/09/22 - PHYSICAL EXAM AT DISCHARGE General Appearance: positive: No acute distress, Alert, Other (Thin, tall, elderly male.) Eyes Bilateral: positive: Normal inspection, EOMI ENT: positive: ENT inspection nml, No signs of dehydration Neck: positive: Nml inspection, No JVD Respiratory: positive: Breath sounds nml Cardiovascular: positive: Regular rate & rhythm, No murmur Abdomen: positive: Non-tender, Nml bowel sounds, No distention Skin: positive: Warm, Dry Extremities: positive: Non-tender, Other (3+ edema to above knees) Neurologic/Psychiatric: positive: Oriented x3, Other (Poor short-term memory.) - LABS Result Diagrams: 09/09/22 05:13 09/09/22 05:13 - DIAGNOSTIC IMAGING Diagnostic Imaging Results: Final report reviewed - SEPSIS Current Stage of Sepsis: Ruled out - FOLLOW UP Follow Up: See PCP in 1-2 weeks for a hospital follow-up exam. - TIME SPENT Time Spent in Discharge (Minutes): 45
== END 2022-09-09 14:22 | disposition home health service (06) | DRG 280 ==
LOC: EDUNIT# → ED 21:28 → MS2 09-04 02:09
PROVIDERS: ADMIT Internal Medicine; ATTEND Internal Medicine
DX: I11.0 Hypertensive heart disease with heart failure (principal); I50.9 Heart failure, unspecified; I48.91 Unspecified atrial fibrillation; J44.9 Chronic obstructive pulmonary disease, unspecified; I13.0 Hypertensive heart and chronic kidney disease with heart failure and stage 1 through stage 4 chronic kidney disease, or unspecified chronic kidney disease; I50.23 Acute on chronic systolic (congestive) heart failure; I21.A1 Myocardial infarction type 2; I48.20 Chronic atrial fibrillation, unspecified; K21.9 Gastro-esophageal reflux disease without esophagitis; F17.213 Nicotine dependence, cigarettes, with withdrawal; N18.9 Chronic kidney disease, unspecified; Z20.822 Contact with and (suspected) exposure to COVID-19; E11.22 Type 2 diabetes mellitus with diabetic chronic kidney disease; F17.200 Nicotine dependence, unspecified, uncomplicated; J43.9 Emphysema, unspecified; I27.81 Cor pulmonale (chronic); I27.20 Pulmonary hypertension, unspecified; Z79.01 Long term (current) use of anticoagulants; E87.6 Hypokalemia; F03.90 Unspecified dementia, unspecified severity, without behavioral disturbance, psychotic disturbance, mood disturbance, and anxiety; R41.0 Disorientation, unspecified; N40.0 Benign prostatic hyperplasia without lower urinary tract symptoms; I25.10 Atherosclerotic heart disease of native coronary artery without angina pectoris; I25.2 Old myocardial infarction; Z95.5 Presence of coronary angioplasty implant and graft; G47.30 Sleep apnea, unspecified; E11.51 Type 2 diabetes mellitus with diabetic peripheral angiopathy without gangrene; M10.9 Gout, unspecified; I65.23 Occlusion and stenosis of bilateral carotid arteries; E78.5 Hyperlipidemia, unspecified; Z66 Do not resuscitate; R09.02 Hypoxemia
CPT/HCPCS: 36415; 70450; 71045; 80048; 80053; 80061; 83036; 83605; 83690; 83735; 83880; 84100; 84443; 84484; 85025; 85027; 87040; 87635; 93005; 93306; 94640; 94761; 96374; 96375; 97116; 97162; 97166; 97530; 99284; 99285; 99406; A9270; J1940; 83721

== ENCOUNTER 2022-10-08 07:39 | Outpatient (CLI) | payer MEDICARE, OTHER | END 2022-10-08 07:40 | disposition E | LOC: EMS 07:39 | DX: I46.9 Cardiac arrest, cause unspecified (principal) ==